=== PATIENT | female | born 1960 | race African-American/Black ===

== ENCOUNTER 2020-03-11 10:40 | Inpatient (IN) | payer MEDICARE ==
[~2020-03-11] VITALS: Ht 165.1 cm; Wt 65.6 kg
[2020-03-11] VITALS (11 sets, daily range): BP systolic 104–147; BP diastolic 54–91; BMI 24.9
[2020-03-11] MEDS ORDERED: BREO ELLIPTA 11 EACH INH ×2 (10:50→17:26)
[2020-03-11] MEDS ORDERED: LANOXIN125 MCG PO (10:51)
[2020-03-11] MEDS ORDERED: DILT-XR240 MG PO (10:51)
[2020-03-11] MEDS ORDERED: CYCLOBENZAPRINE10 MG PO (10:51)
[2020-03-11] MEDS ORDERED: LOMOTIL 2.5-0.1 EAC1 PO (10:51)
[2020-03-11] MEDS ORDERED: HYDROCODON-ACE1 EAC2 PO (10:52)
[2020-03-11] MEDS ORDERED: FERROUS SULFAT325 MG PO (10:52)
[2020-03-11] MEDS ORDERED: ELIQUIS2.5 MG PO (10:52)
[2020-03-11] MEDS ORDERED: MAG-OX 400 MG400 MG PO (10:53)
[2020-03-11] MEDS ORDERED: ZOFRAN8 MG PO (10:53)
[2020-03-11] MEDS ORDERED: LASIX40 MG PO (10:53)
[2020-03-11] MEDS ORDERED: IPRAT-ALBUT 0.5-3 ML UPD (10:53)
[2020-03-11] MEDS ORDERED: GLUCOPHAGE500 MG PO (10:53)
[2020-03-11] MEDS ORDERED: ALTACE1.25 MG PO (10:54)
[2020-03-11] MEDS ORDERED: VIAGRA25 MG PO (10:54)
[2020-03-11] MEDS ORDERED: PROTONIX40 MG PO (10:54)
[2020-03-11 11:09] LABS: BASOPHILS 0.1 % (0-2); EOSINOPHILS 0 % (0-7); HEMATOCRIT 37.8 % (36.0-48.0); LYMPHOCYTES 5.8 % (15-50); MCH 27.5 pg (26.0-34.0); MCHC 29.1 g/dL (31.0-37.0); MCV 94.5 fL (80.0-100.0); MEAN PLATELET VOLUME 10.1 fL (7.4-10.4); MONOCYTES 1.6 % (2-11); NEUTROPHILS 91.5 % (40-80); PLATELET COUNT 348 10x3/uL (130-400); RDW 15.3 % (11.5-14.5); WBC 10.9 10x3/uL (4.8-10.8)
[2020-03-11 11:14] LABS: ANION GAP 16.3 mmol/L (8-16); CALCIUM 9.3 mg/dL (8.5-10.1); CARBON DIOXIDE 28.3 mmol/L (21.0-32.0); CREATININE - SERUM 3.8 mg/dL (0.6-1.3); POTASSIUM - SERUM 5.6 mmol/L (3.5-5.1)
--- NOTE | 2020-03-11 11:16 | NUR ---
PT PLACED ON NRB AT 15L AT THIS TIME. O2 SAT IMPROVED TO 91%
[2020-03-11 11:18] LABS: INR 1.53 (0.85-1.17); PROTIME 18.2 SECONDS (11.6-15.0)
[2020-03-11 11:19] LABS: APTT 38.8 SECONDS (22.8-39.4)
[2020-03-11 11:20] LABS: D-DIMER-QUANTITATIVE < 0.27 ug/mLFEU (0.20-0.54)
[2020-03-11 11:23] LABS: ALBUMIN 3.8 g/dL (3.4-5.0); BILIRUBIN - TOTAL 0.44 mg/dL (0.2-1.3); PROTEIN - SERUM 8.8 g/dL (6.4-8.2); TROPONIN-I 0.026 ng/mL (0.000-0.060)
--- NOTE | 2020-03-11 13:25 | NUR ---
PT PROVIDED WITH BLANKET
--- NOTE | 2020-03-11 14:38 | NUR ---
REPORT CALLED TO ANAHY AT THIS TIME.
--- NOTE | 2020-03-11 15:07 | NUR ---
RECEIVED PT FROM ED VIA STRETCHER. PT ON ISOLATION FOR PUI. ON 100% NRB. RT FA PIV, SL. SOFI LUNGS DIMINISHED. DENIES ANY NEEDS AT THIS TIME. SR ON THE MONITOR.
--- NOTE | 2020-03-11 16:00 | NUR ---
SISTER HERE TO VISIT. ALLOWED TO SEE PATIENT THROUGH THE WINDOW. UPDATE GIVEN PER PT CONSENT. WILL CONT TO MONITOR.
--- NOTE | 2020-03-11 16:30 | NUR ---
CONSULTED DR HESS PER ORDERS. STATES HE WILL BE HERE IN A MINUTE. DR HESS SITTING NEXT TO DR MADDEN, NOTIFIED OF CONSULT WELL.
--- NOTE | 2020-03-11 16:50 | NUR ---
DR HESS IN UNIT TO SEE PATIENT. STATES "I'LL BE RIGHT BACK".
--- NOTE | 2020-03-11 17:30 | NUR ---
REC'D RERPORT, AND RESUMED CARE, PATIENT IN PUI ROOM ISOLATION, BIPAP IN USE AT 40%, 07/04, AA, NO NEEDS AT THIS TIME,
--- NOTE | 2020-03-11 18:15 | NUR ---
SISTER HERE FOR VISIT, WAS ABLE TO COMMUNICATE THROUGH WINDOW, UNDERSTANDS SHE WILL NOT BE ABLE TO GO IN ROOM UNTIL COVID COMES BACK NEGATIVE, INFORMATION GIVEN SON RE: HOURS AND VISITATIONS
[2020-03-11 20:30] LABS: CREATINE KINASE 107 UL (21-215)
[2020-03-11 20:34] LABS: ALBUMIN 3.8 g/dL (3.4-5.0); BILIRUBIN - TOTAL 0.3 mg/dL (0.2-1.3); CALCIUM 8.8 mg/dL (8.5-10.1); POTASSIUM - SERUM 5.2 mmol/L (3.5-5.1); PROTEIN - SERUM 7.9 g/dL (6.4-8.2)
[2020-03-11 20:38] LABS: ANION GAP 9.3 mmol/L (8-16); CARBON DIOXIDE 35.9 mmol/L (21.0-32.0); TROPONIN-I < 0.017 ng/mL (0.000-0.060)
--- NOTE | 2020-03-11 22:25 | NUR ---
spoke with dr lauren. lung scan is to be in am
[2020-03-11 23:45] LABS: BILIRUBIN NEGATIVE (NEGATIVE); GLUCOSE NEGATIVE (NEGATIVE); KETONE NEGATIVE (NEGATIVE); NITRITE NEGATIVE (NEGATIVE); UROBILINOGEN NORMAL (NORMAL)
[2020-03-11 23:55] LABS: UDS - AMPHET NEGATIVE QUAL (NEGATIVE); UDS - BARB NEGATIVE QUAL (NEGATIVE); UDS - BENZO NEGATIVE QUAL (NEGATIVE); UDS - COCAINE NEGATIVE QUAL (NEGATIVE); UDS - OPIATE POSITIVE QUAL (NEGATIVE); UDS - PCP NEGATIVE QUAL (NEGATIVE); UDS - THC NEGATIVE QUAL (NEGATIVE)
[2020-03-12] VITALS (22 sets, daily range): BP systolic 98–162; BP diastolic 61–99; Ht 165.1 cm; Wt 65.6 kg
--- NOTE | 2020-03-12 01:44 | NUR ---
patient vomited twice. zofran provided.
--- NOTE | 2020-03-12 01:48 | NUR ---
1999- lab called for negative covid results. patient on bipap during this time.
--- NOTE | 2020-03-12 03:19 | NUR ---
patient throwing up. continued to reducated as to why she is npo.
--- NOTE | 2020-03-12 05:41 | NUR ---
bicarb turned off per dr lauren. update given
[2020-03-12 06:16] LABS: BASOPHILS 0 % (0-2); EOSINOPHILS 0 % (0-7); HEMATOCRIT 42.3 % (36.0-48.0); HEMOGLOBIN 12.5 g/dL (12-16); IMMATURE GRANULOCYTES 0.2 % (0-5); MCH 27.6 pg (26.0-34.0); MCHC 29.6 g/dL (31.0-37.0); MCV 93.4 fL (80.0-100.0); MEAN PLATELET VOLUME 10.5 fL (7.4-10.4); MONOCYTES 15.8 % (2-11); PLATELET COUNT 353 10x3/uL (130-400); RBC 4.53 10x6/uL (4.00-5.40); RDW 15.7 % (11.5-14.5)
[2020-03-12 06:17] LABS: WBC 5.8 10x3/uL (4.8-10.8)
[2020-03-12 06:48] LABS: ALBUMIN 4.1 g/dL (3.4-5.0); ALKALINE PHOSPHATASE 59 U/L (30-120); ALT (SGPT) 194 U/L (10-68); BILIRUBIN - TOTAL 0.44 mg/dL (0.2-1.3); CALC OSMOLALITY 290 mosm/kg (275-300); CALCIUM 9.5 mg/dL (8.5-10.1); CHLORIDE - SERUM 93 mmol/L (98-107); CKMB 2.4 U/L (0.0-3.6); CREATINE KINASE 61 UL (21-215); CREATININE - SERUM 2.3 mg/dL (0.6-1.3); GLUCOSE 143 mg/dL (74-106); MAGNESIUM - SERUM 1.8 mg/dL (1.8-2.4); POTASSIUM - SERUM 4.5 mmol/L (3.5-5.1); PROTEIN - SERUM 9.1 g/dL (6.4-8.2); SODIUM 138 mmol/L (136-145); UREA NITROGEN 48 mg/dL (7-18); eGFR NON AFRICAN AMERICAN 23 mL/min (90-120)
[2020-03-12 06:51] LABS: TROPONIN-I 0.068 ng/mL (0.000-0.060)
[2020-03-12 06:52] LABS: CARBON DIOXIDE 41.2 mmol/L (21.0-32.0)
--- NOTE | 2020-03-12 06:54 | NUR ---
critical labs called to dr lauren.
--- NOTE | 2020-03-12 08:42 | NUR ---
UP IN BED AT THIS TIME RESTING. VSS. NO ACUTE DISTRESS NOTED. RESPIRATIONS STEADY AND UNLABORED. CALL LIGHT IN REACH. AWAKENS WHEN SPOKEN TO. WILL CONTINUE PLAN OF CARE.
--- NOTE | 2020-03-12 10:41 | NUR ---
PT NOTED TO HAVE EPISODE OF TACHYCARDIA UP TO 130 WHICH LASTS FOR AROUND 2 OR 3 SECONDS FOLLOWED BY HEART RATE COMING BACK DOWN TO 100 AND HOLDING. BLOOD PRESSURE 139/88. PT CALM AND RESTING IN BED. DENIES ANY NEEDS OR DISCOMFORTS. DR MERCADO CALLED, RECIEVED VOICEMAIL, VOICEMAIL LEFT FOR HIM TO CALL BACK. WAITING FOR CALLBACK.
--- NOTE | 2020-03-12 11:06 | NUR ---
SINCE DR MERCADO CALLED RECENTLY, PT HAS HAD 2 MORE EPISODES OF TACHYCARDIA UP TO 125-130 WHICH LASTS UP TO 3 SECONDS AND IS FOLLOWED BY PT COMING BACK DOWN TO [address] NO CALLBACK FROM DR MERCADO. CALLED [facility] TO [facility] PHYSICIAN. DR MERCADO PAGED.
--- NOTE | 2020-03-12 11:16 | NUR ---
DR MERCADO HERE TO SEE PT. ORDERED CARDIOLOGY CONSULT.
--- NOTE | 2020-03-12 11:17 | NUR ---
GISSEL SLAUGHTER FOR CARDIOLOGY PAGED.
--- NOTE | 2020-03-12 11:29 | NUR ---
SPOKE WITH KEITH WITH CARDIOLOGY, STATED SHE WOULD BE BY TO SEE PT SHORTLY.
--- NOTE | 2020-03-12 12:41 | NUR ---
PTS DAUGHTER AT BEDSIDE VISIING WITH PT AT THIS TIME. VSS. NO ACUTE DISTRESS NOTED. WILL CONTINUE PLAN OF CARE.
--- NOTE | 2020-03-12 13:49 | NUR ---
HEART RATE TRENDING UP TO 140 SINUS AND HOLDING. EKG OBTAINED AND SHOWS "UNDETERMINED RHYTHM." CARDIOLOGY PAGED.
--- NOTE | 2020-03-12 14:11 | NUR ---
NO CALLBACK RECIEVED FROM CARDIOLOGY FIRE LOSS PREVENTION ENGINEER. DR WANG PAGED AT THIS TIME. PTS HEART RATE 137 SINUS.
--- NOTE | 2020-03-12 14:14 | NUR ---
RECIEVED CALLBACK FROM TRAINING AND DEVELOPMENT HEAD RN WHO STATED SHE WILL NOTIFY DR WANG REGARDING PT UPDATE.
--- NOTE | 2020-03-12 17:40 | NUR ---
CHG BATH OFFERED TO PT, SHE REFUSED STATING SHE WANTED TO REST. ALSO ASSITED PT TO BEDSIDE TOILET, CONTINENT VOID NOTED. PT PROVIDED OWN JAKUB CARE. NO ACUTE DISTRESS NOTED. WILL CONTINIUE PLAN OF CARE.
--- NOTE | 2020-03-12 19:00 | NUR ---
ASSESSMENT COMPLETED. SEE FLOWSHEETS FOR ALL FINDINGS. PT SOMNOLENT, AROUSE WITH VOICES, FOLLOWS COMMANDS. DENIES ANY DISCOMFORT AT THIS TIME. AFIB ON CM WITH R AT 98BPM. PPP. CALL LIGHT IN REACH. CPOC.
--- NOTE | 2020-03-12 21:00 | NUR ---
SON AT BEDSIDE. UPDATED.
--- NOTE | 2020-03-12 21:45 | NUR ---
PT NAUSEATED. NO EMESIS NOTED. HOB UP. ZOFRAN 4MG IVP GIVEN PER ORDER. WASH COLD TO FOREHEAD. MOUTH CARE PROVIDED. PT STATES THAT FEELS BETTER. CPOC.
--- NOTE | 2020-03-12 23:00 | NUR ---
REASSESSMENT COMPLETED. SEE FLOWSHEETS FOR ALL FINDINGS. PT BACK ON BIPAP WITHOUT DISTRESS AT THIS TIME. VSS. CPOC.
[2020-03-13] VITALS (24 sets, daily range): BP systolic 104–139; BP diastolic 50–99
--- NOTE | 2020-03-13 01:00 | NUR ---
ASSISTED WITH BEDPAN. VOIDS WITHOUT DIFFIC. JAKUB CARE PROVIDED. REPOSITIONED SELF FOR COMFORT. CPOC.
--- NOTE | 2020-03-13 03:00 | NUR ---
REASSESSMENT COMPLETED. SEE FLOWSHEETS FOR ALL FINDINGS. NO ACUTE SINGS OF DISTRESS AT THIS TIME. VSS. CPOC.
[2020-03-13 03:36] LABS: BASOPHILS 0 % (0-2); EOSINOPHILS 0 % (0-7); HEMATOCRIT 38.2 % (36.0-48.0); HEMOGLOBIN 10.9 g/dL (12-16); IMMATURE GRANULOCYTES 0.3 % (0-5); MCH 27.5 pg (26.0-34.0); MCHC 28.5 g/dL (31.0-37.0); MEAN PLATELET VOLUME 10.7 fL (7.4-10.4); MONOCYTES 15.6 % (2-11); NEUTROPHILS 69.1 % (40-80); PLATELET COUNT 342 10x3/uL (130-400); RBC 3.97 10x6/uL (4.00-5.40); RDW 15.6 % (11.5-14.5)
[2020-03-13 03:39] LABS: MCV 96.2 fL (80.0-100.0); WBC 7.8 10x3/uL (4.8-10.8)
[2020-03-13 03:58] LABS: ALBUMIN 3.4 g/dL (3.4-5.0); ANION GAP 6.4 mmol/L (8-16); BILIRUBIN - TOTAL 0.41 mg/dL (0.2-1.3); CALCIUM 8.7 mg/dL (8.5-10.1); CARBON DIOXIDE 39.6 mmol/L (21.0-32.0); CREATININE - SERUM 1.9 mg/dL (0.6-1.3); MAGNESIUM - SERUM 1.8 mg/dL (1.8-2.4); PROTEIN - SERUM 7.4 g/dL (6.4-8.2)
--- NOTE | 2020-03-13 04:15 | NUR ---
I&O COMPLETED TO CHART.
[2020-03-13 06:09] LABS: HEPATITIS C ANTIBODY 0.2 S/CO RAT (0.0-0.9)
--- NOTE | 2020-03-13 07:00 | NUR ---
REPORT RECEIVED. ASSESSMENT COMPLETE PER FLOW SHEET. VSS. PT RESTING COMFORTABLY WILL CONTIUE TO MONITOR
--- NOTE | 2020-03-13 09:00 | NUR ---
PT ATE 50% BREAKFAST.
--- NOTE | 2020-03-13 10:44 | NUR ---
Nutrition follow-up: Pt not feeling well today; with nausea Labs reviewed Wt: 148# Diet: Renal consistent CHO Bipap at times; O2 @ 9 liters Will continue to provide food choices and honor food preferences. RDN following.
--- NOTE | 2020-03-13 11:00 | NUR ---
REASSESSMENT COMPLETE PER FLOW SHEET. VSS. PT RETING COMFORTABLY WILL CONTINUE TO MONITOR
--- NOTE | 2020-03-13 13:00 | NUR ---
PT REFUSED LUNCH
--- NOTE | 2020-03-13 15:00 | NUR ---
REASSESMENT COMPLETE PER FLOW SHEET. VSS. PT RESTING COMFORTABLY WILL CONTINUE TO MONITOR
--- NOTE | 2020-03-13 17:00 | NUR ---
PT EATING DINNER AT THIS TIME
--- NOTE | 2020-03-13 19:00 | NUR ---
REPORT RECEIVED INITIAL ASSESSMENT COMPLETE O2 PER NC 7LPM O2 SAT 96%. CM READING SR AT THIS TIME. DENIES NEEDS AT THIS TIME. CL IN REACH WILL MONITOR
--- NOTE | 2020-03-13 21:30 | NUR ---
ANSWERED CL PT NEEDING ASSIST WITH CM LEADS AND WIRES TO GET UP TO BSC PT STEADY GAIT AND INDEPENDENT JUST NEEDING HELP WITH MONITOR. CLEAR YELLOW URINE NOTED ASSISTED BACK TO BED AND MONITOR BACK ON
--- NOTE | 2020-03-13 21:44 | NUR ---
ANSWERED PTS CL REQUESTING PAIN PILL PT STATES LOWER BACK PAIN CHRONIC. MEDICATED PER PRN EMAR WILL CONTINUE TO MONITOR N
[2020-03-14] VITALS (24 sets, daily range): BP systolic 95–128; BP diastolic 58–79
--- NOTE | 2020-03-14 01:40 | NUR ---
ANSWERED PTS CALL LIGHT ASSISTED WITH MONITOR LEADS UP TO BSC
--- NOTE | 2020-03-14 02:35 | NUR ---
ANSWERED PTS CALL LIGHT REQUESTING PAIN MED FOR CHRONIC BACK PAIN SEE PRN EMAR
[2020-03-14 03:39] LABS: BASOPHILS 0 % (0-2); EOSINOPHILS 0.7 % (0-7); HEMATOCRIT 38.8 % (36.0-48.0); IMMATURE GRANULOCYTES 0.1 % (0-5); LYMPHOCYTES 19.2 % (15-50); MCH 27.1 pg (26.0-34.0); MCHC 28.4 g/dL (31.0-37.0); MCV 95.6 fL (80.0-100.0); MONOCYTES 8.2 % (2-11); NEUTROPHILS 71.8 % (40-80); RBC 4.06 10x6/uL (4.00-5.40); RDW 15.2 % (11.5-14.5)
[2020-03-14 03:40] LABS: PLATELET COUNT 270 10x3/uL (130-400)
[2020-03-14 04:01] LABS: ALBUMIN 3.4 g/dL (3.4-5.0); BILIRUBIN - TOTAL 0.57 mg/dL (0.2-1.3); CALCIUM 8.6 mg/dL (8.5-10.1); CARBON DIOXIDE 39.6 mmol/L (21.0-32.0); CREATININE - SERUM 1.6 mg/dL (0.6-1.3); MAGNESIUM - SERUM 1.5 mg/dL (1.8-2.4); POTASSIUM - SERUM 3.6 mmol/L (3.5-5.1); PROTEIN - SERUM 7.1 g/dL (6.4-8.2)
--- NOTE | 2020-03-14 05:40 | NUR ---
MAG LEVEL LOW PER ELECTROLYTE PROTOCOL MAG OX 400 MG GIVEN FIRST DOSE NOW SECOND DOSE TO BE GIVEN IN 4 HOURS WILL REPORT TO ONCOMING SHIFT
--- NOTE | 2020-03-14 07:30 | NUR ---
UP TO BEDSIDE COMMODE. SMALL SOFT BROWN STOOL AND VOIDED. TOLERATING TRANSFERING SELF WELL. DENIES SHORTNESS OF BREATH WITH A PULSE OX OF 88% ON 7 LITERS HIGH FLOW OXYGEB
--- NOTE | 2020-03-14 08:00 | NUR ---
BREAKFAST SERVED. FEEDS SELF. FAIR APPETITE. IV RIGHT FOREARM INFUSING WITH DOBUTAMINE AT 5 MCG/KG/MIN. MONITOR SR. NO DISTRESS
--- NOTE | 2020-03-14 10:00 | NUR ---
MOVED TO ROOM 2310. OUT OF THE ISOLATION ROOM. PER BED. PATIENT TOLERATED WELL
--- NOTE | 2020-03-14 10:30 | NUR ---
COMPLETE HIBCLENS BATH GIVEN WITH LINEN CHANGE PATIENT TOLERATED WELL. UP TO BSC WITH MINIMAL ASSISTANCES WITH LINES.
--- NOTE | 2020-03-14 11:30 | NUR ---
sat on side of bed to eat lunch. up on bedside commode. voiding small amounts, passing gas. tolerates fair.
--- NOTE | 2020-03-14 13:00 | NUR ---
iv leaking when lasix given. restarted iv in right forearm with 22 gauge, lasix given, dobutamine restarted at 5 mcg/kg/min. new line and bag placed. patient tolerated well. monitor sr.
--- NOTE | 2020-03-14 14:00 | NUR ---
up in chair at bedside. patient states her back is better up in chair
--- NOTE | 2020-03-14 15:00 | NUR ---
son here update given.
--- NOTE | 2020-03-14 16:30 | NUR ---
dinner tray served. ate poorly.
--- NOTE | 2020-03-14 17:00 | NUR ---
returned to bed. gait fair. holding on to furniture to ambulate in room
--- NOTE | 2020-03-14 19:00 | NUR ---
REPORT RECEIVED INITIAL ASSESSMENT COMPLETE. ALERT AND ORIENTED STATES PAIN MED GIVEN EARLIER EFFECTIVE. RESP EVEN NONLABORED PT DENIES SOB O2 AT 8 LPM HFNC. CHEST SOUNDS CLEAR. CM READING SR WITHOUT ECTOPY ALARMS ON AND AUDIBLE. DOBUTAMINE GTT CONTINUES AT 5 MCG/KG/MIN VIA 22 GUAGE TO RIGHT FOREARM BED IN LOW POSITION CL IN REACH PT DENIES NEEDS AT THIS TIME. CPOC
--- NOTE | 2020-03-14 20:30 | NUR ---
ANSWERED PTS CALL LIGHT NEEDING TO GET UP TO BSC ASSISTED WITH IV LINE AND CM LINES PT HAD MODERATE FORMED BROWN STOOL
--- NOTE | 2020-03-14 21:10 | NUR ---
ACCUCHECK 107 NO COVERAGE REQUIRED
--- NOTE | 2020-03-14 23:30 | NUR ---
ANSWERED PTS CALL LIGHT REQUESTING PAIN MED MEDICATED WITH VICOPROFEN PER EMAR FOR CHRONIC BACK PAIN WILL CONTINUE TO MONITOR
[2020-03-15] VITALS (24 sets, daily range): BP systolic 92–133; BP diastolic 61–88
--- NOTE | 2020-03-15 03:20 | NUR ---
O2 SAT ALARMING PT O2 SAT DROPS EVERY TIME PT UP TO BSC THIS TIME DOWN TO 70'S. ONCE BACK IN BED AND SITUATED O2 SAT RETURNS TO 90'S
[2020-03-15 03:41] LABS: BASOPHILS 0.1 % (0-2); EOSINOPHILS 2.8 % (0-7); HEMATOCRIT 40.5 % (36.0-48.0); HEMOGLOBIN 11.7 g/dL (12-16); IMMATURE GRANULOCYTES 0.3 % (0-5); LYMPHOCYTES 14.2 % (15-50); MCH 27.1 pg (26.0-34.0); MCHC 28.9 g/dL (31.0-37.0); MEAN PLATELET VOLUME 10.4 fL (7.4-10.4); MONOCYTES 15.8 % (2-11); NEUTROPHILS 66.8 % (40-80); PLATELET COUNT 304 10x3/uL (130-400); RBC 4.31 10x6/uL (4.00-5.40); RDW 14.6 % (11.5-14.5); WBC 7.8 10x3/uL (4.8-10.8)
[2020-03-15 03:50] LABS: ALBUMIN 3.5 g/dL (3.4-5.0); BILIRUBIN - TOTAL 0.61 mg/dL (0.2-1.3); CALCIUM 8.3 mg/dL (8.5-10.1); CARBON DIOXIDE 39.7 mmol/L (21.0-32.0); CREATININE - SERUM 1.5 mg/dL (0.6-1.3); MAGNESIUM - SERUM 1.5 mg/dL (1.8-2.4); POTASSIUM - SERUM 3.7 mmol/L (3.5-5.1); PROTEIN - SERUM 7.4 g/dL (6.4-8.2)
--- NOTE | 2020-03-15 04:15 | NUR ---
PTS MAG LOW ON AM LABS. MAGOX 400 MG GIVEN ORAL PER ELECTROLYTE PROTOCOL
--- NOTE | 2020-03-15 06:06 | NUR ---
ANSWERED CALL LIGHT PT REQUESTING PAIN PILL MEDICATED SEE EMAR
--- NOTE | 2020-03-15 07:00 | NUR ---
AWAKE AND ALERT SKIN WARM AND DRY. USUAL BACK PAIN FOR MORNING FOR HER. IV RIGHT FOREARM WITHOUT REDNESS OR SWELLING INFUSING WITH DOBUTAMINE AT 5 MCG/KG/MIN. PATIENT ABLE TO GET UP AND DOWN TO BSC INDEPENTLY. MONITOR SR. OXYGEN AT 5 LITERS PER HIGH FLOW
--- NOTE | 2020-03-15 08:00 | NUR ---
BREAKFAST SERVED ATE WELL. ASSIST WITH MENU
--- NOTE | 2020-03-15 09:00 | NUR ---
FAMILY HERE UPDATE GIVEN. PO MEDS TAKEN WITHOUT PROBLEM
--- NOTE | 2020-03-15 12:00 | NUR ---
LUNCH TRAY SERVED ATE WELL. NO DISTRESS. [place] [facility].
--- NOTE | 2020-03-15 13:00 | NUR ---
SON HERE UPDATE GIVEN. PATIENT SITTING ON SIDE OF BED.
--- NOTE | 2020-03-15 15:00 | NUR ---
UP AND DOWN [place] [facility] [place]ANCES. NO DISTRESS. MONITOR SR. DOBUTAMINE CONTINUES AT 5 MCG/KG/MIN.
--- NOTE | 2020-03-15 17:14 | NUR ---
DINNER TRAY SERVED. WATCHING TV. NO DISTRESS
--- NOTE | 2020-03-15 17:59 | NUR ---
sat up on bsc. complete hibclens bath taken with ora care. patient does have to take breaks and catch her breath. pulse ox does drop down into low 80's. tolerated fair. warm blanket provided. in bed. head of bed elvated
--- NOTE | 2020-03-15 19:00 | NUR ---
REPORT RECEIVED INITIAL ASSESSMENT COMPLETE. PT AWAKE ALERT AND ORIENTED. O2 PER HFNC 5LPM WITH OS SAT 95%. CHEST CLEAR. CM READING SR WITHOUT ECTOPY ALARMS ON AND AUDIBLE. DOBUTAMINE GTT CONTINUES AT 5MCG/KG/MIN DENIES PAIN OR SOB. CL IN REACH WILL CONTINUE TO MONITOR
--- NOTE | 2020-03-15 23:30 | NUR ---
ANSWERED PTS CALL LIGHT RAIN HAS INCREASED HER CHRONIC BACK PAIN GIVEN PAIN PILL VICOPROPHEN PER EMAR
[2020-03-16] VITALS (24 sets, daily range): BP systolic 89–129; BP diastolic 56–102
--- NOTE | 2020-03-16 03:00 | NUR ---
REASSESSMENT COMPLETE NO CHANGES. PT O2 SAT DROPS WHEN UP TO BSC BACK UP TO 90'S WHEN SETTLED BACK IN BED. CPOC
--- NOTE | 2020-03-16 03:45 | NUR ---
LAB HERE TO DRAW AM LAB REQUESTED FOR LATER DRAW SINCE PT JUST GOT TO SLEEP
[2020-03-16 04:24] LABS: HEMATOCRIT 41.5 % (36.0-48.0); HEMOGLOBIN 11.9 g/dL (12-16); LYMPHOCYTES 9.3 % (15-50); MCH 26.8 pg (26.0-34.0); MCHC 28.7 g/dL (31.0-37.0); MCV 93.5 fL (80.0-100.0); MEAN PLATELET VOLUME 10.3 fL (7.4-10.4); NEUTROPHILS 79.9 % (40-80); PLATELET COUNT 321 10x3/uL (130-400); RBC 4.44 10x6/uL (4.00-5.40); RDW 14.8 % (11.5-14.5); WBC 8.7 10x3/uL (4.8-10.8)
[2020-03-16 04:39] LABS: ALBUMIN 3.4 g/dL (3.4-5.0); ANION GAP 3.2 mmol/L (8-16); BILIRUBIN - TOTAL 0.39 mg/dL (0.2-1.3); CREATININE - SERUM 1.5 mg/dL (0.6-1.3); MAGNESIUM - SERUM 1.6 mg/dL (1.8-2.4); POTASSIUM - SERUM 3.2 mmol/L (3.5-5.1); PROTEIN - SERUM 7.2 g/dL (6.4-8.2)
--- NOTE | 2020-03-16 05:10 | NUR ---
PT REQUESTING PAIN PILL HASNT RESTED WELL. POTASSIUM AND MAG REPLACED PER ELECTROLYTE PROTOCOL
--- NOTE | 2020-03-16 10:07 | NUR ---
Nutrition follow-up: Diet: Renal ADA consistent CHO PO intake 50-100% of meals; appetite very good this morning Labs reviewed; K has been running low, BUN, Cr trending down Wt: 157# PO intake good at this time RDN recommends changing diet order to ADA consistent CHO due to pt with low K. RDN following.
--- NOTE | 2020-03-16 11:15 | NUR ---
REASSESSMENT COMPLETE PER FLOW SHEET. VSS. PT RESTING COMFORTABLY WILL CONTINUE TO MONITOR
--- NOTE | 2020-03-16 18:41 | MORECARE ---
CASE MANAGEMENT DISCHARGE SUMMARY PATIENT: BABATUNDE CAMPOVERDE UNIT: [id number] ADM DATE: 03/11/20 AGE: 59 : 56 SEX: F ROOM/BED: D.2310 AUTHOR: PIERRE MISTRY PHYSICIAN: REFERRING PHYSICIAN: TERESA MERCADO MD DATE OF SERVICE: 03/16/20 Discharge Plan Patient Name: BABATUNDE CAMPOVERDE Facility: [facility]:[place] : 1960 Planned Disposition: Home Anticipated Discharge Date: Discharge Date: Expected LOS: Initial Reviewer: [email or web address] Initial Review Date: 03/11/2020 Generated: 03/16/20 7:40 pm DCPIA - Discharge Planning Initial Assessment Updated by [email or web address]: Antionette Mclaughlin on 03/16/20 6:40 pm * Is the patient Alert and Oriented? Yes * How many steps to enter\exit or inside your home? * PCP [facility] * Pharmacy [facility] * Preadmission Environment Home with Family * ADLs Independent * Equipment Nebulizer * Other Equipment HOME / PORTABLE 02 * List name and contact numbers for known caregivers / representatives who currently or will assist patient after discharge: OFELIA CAMPOVERDE - [phone], * Verbal permission to speak to the caregivers and representatives has been obtained from the patient. Yes * Additional services required to return to the preadmission environment? No * Can the patient safely return to the preadmission environment? Yes * Has this patient been hospitalized within the prior 30 days at any hospital? No Patient Name: BABATUNDE CAMPOVERDE Page [id number] at 1841 All edits/amendments must be made on the electronic document DICTATION DATE: 03/16/201839 FRANKFURTER INSPECTOR: HEDY 03/16/201839 RPT#: [id number] DC DATE: STATUS: ADM IN [facility] [address] [place] [address] END OF REPORT
--- NOTE | 2020-03-16 18:48 | MORECARE ---
CASE MANAGEMENT DISCHARGE SUMMARY PATIENT: BABATUNDE CAMPOVERDE UNIT: [id number] ADM DATE: 03/11/20 AGE: 59 : 56 SEX: F ROOM/BED: D.2310 AUTHOR: FEDE,DOC PHYSICIAN: REFERRING PHYSICIAN: TERESA MERCADO MD DATE OF SERVICE: 03/16/20 Discharge Plan Patient Name: BABATUNDE CAMPOVERDE Facility: [facility]:[place] : 1960 Planned Disposition: Home Anticipated Discharge Date: Discharge Date: Expected LOS: Initial Reviewer: [email or web address] Initial Review Date: 03/11/2020 Generated: 03/16/20 7:47 pm Comments DCP- Discharge Planning Updated by [email or web address]: Antionette Mclaughlin on 03/16/20 5:[address] Patient Name: BABATUNDE CAMPOVERDE Admission Status: ER Accout number: [id number] Admission Date: 03-11-2020 : 1960 Admission Diagnosis:ACUTE KIDNEY FAILURE, UNSPECIFIED Attending: SUDHEER Current LOS: 5 Anticipated DC Date: Planned Disposition: Home Primary Insurance: [facility] [employer] Discharge Planning Comments: CM met with patient to complete initial dc planning assessment. CM educated patient on the CM role and verbal consent given by patient to complete assessment. Patient lives at home with family. Patient is independent. At discharge patient plans to return home and feels this is a safe discharge. CM discussed availability of home health, rehab services, and medical equipment. Patient states that she has a nurse that visits once a month. Patient states that she has home / portable 02 and a nebulizer. Patient would like a 4 prong cane for being unsteady. [employer]HO[employer] signed no preference in DME company. Patient will have family to transport home. Patient denied known discharge needs at this time. CM will continue to follow and will assist as needed with dc plans/needs. Bereavement Program Coordinator: Antionette Mclaughlin DCPIA - Discharge Planning Initial Assessment Updated by [id number]: Antionette Mclaughlin on 03/16/20 6:40 pm * Is the patient Alert and Oriented? Yes * How many steps to enter\exit or inside your home? * PCP [facility] * Pharmacy [facility] * Preadmission Environment Home with Family * ADLs Independent * Equipment Nebulizer * Other Equipment HOME / PORTABLE 02 * List name and contact numbers for known caregivers / representatives who currently or will assist patient after discharge: OFELIA CAMPOVERDE - [phone], * Verbal permission to speak to the caregivers and representatives has been obtained from the patient. Yes * Additional services required to return to the preadmission environment? No * Can the patient safely return to the preadmission environment? Yes * Has this patient been hospitalized within the prior 30 days at any hospital? No Coverage Notice Reviewer: [email or web address] Lauren Mclaughlin Notice Issued Date-Time: 03/16/2020 18:45 Notice Type: Patient Choice Letter Notice Delivered To: Patient Relationship to Patient: Self Global Expansion Sales Director Name: Delivery Method: HAND - Hand Delivered Slime Days: Prior Verbal Notification: Recipient Understood Notice: Yes Recipient Signature: Yes Med Rec Note Co-signed by Attending: Coverage Notice Comment: no preference in DME Last DP export: 03/16/20 5:41 p Patient Name: BABATUNDE CAMPOVERDE Page [phone] at 1848 All edits/amendments must be made on the electronic document DICTATION DATE: 03/16/201847 BUTADIENE CONVERTOR OPERATOR: HEDY 03/16/201847 RPT#: [id number] DC DATE: STATUS: ADM IN [facility] [address] [place] [address] END OF REPORT
--- NOTE | 2020-03-16 19:00 | NUR ---
REPORT RECEIVED. PT RESTING IN BED. ASSESSMENT COMPLETED, SEE FLOWSHEET. PIV IN RIGHT FOREARM INFUSING, SEE IV FLOWSHEET. WILL CONTINUE TO MONITOR.
--- NOTE | 2020-03-16 21:00 | NUR ---
PT RESTING IN BED, NO ACUTE DISTRESS NOTED.
--- NOTE | 2020-03-16 23:00 | NUR ---
REASSESSMENT COMPLETED, SEE FLOWSHEET. NO NEEDS VOICED AT THIS TIME.
[2020-03-17] VITALS (24 sets, daily range): BP systolic 86–125; BP diastolic 43–89
--- NOTE | 2020-03-17 01:00 | NUR ---
PT RESTING QUIETLY IN BED. NO ACUTE DISTRESS NOTED.
--- NOTE | 2020-03-17 03:00 | NUR ---
REASSESSMENT COMPLETED, SEE FLOWSHEET. WILL CONTINUE TO MONITOR.
[2020-03-17 06:44] LABS: BASOPHILS 0.1 % (0-2); EOSINOPHILS 3.7 % (0-7); HEMATOCRIT 42.2 % (36.0-48.0); HEMOGLOBIN 12.1 g/dL (12-16); IMMATURE GRANULOCYTES 0.1 % (0-5); LYMPHOCYTES 16.3 % (15-50); MCH 26.4 pg (26.0-34.0); MCHC 28.7 g/dL (31.0-37.0); MCV 91.9 fL (80.0-100.0); MEAN PLATELET VOLUME 10.5 fL (7.4-10.4); MONOCYTES 12.7 % (2-11); NEUTROPHILS 67.1 % (40-80); PLATELET COUNT 334 10x3/uL (130-400); RBC 4.59 10x6/uL (4.00-5.40); RDW 14.5 % (11.5-14.5); WBC 7.3 10x3/uL (4.8-10.8)
[2020-03-17 07:06] LABS: ALBUMIN 3.3 g/dL (3.4-5.0); BILIRUBIN - TOTAL 0.26 mg/dL (0.2-1.3); CALCIUM 8.8 mg/dL (8.5-10.1); CARBON DIOXIDE 36.5 mmol/L (21.0-32.0); CREATININE - SERUM 1.2 mg/dL (0.6-1.3); MAGNESIUM - SERUM 1.9 mg/dL (1.8-2.4); PHOSPHOROUS 2.9 mg/dL (2.5-4.9); POTASSIUM - SERUM 3.5 mmol/L (3.5-5.1); PROTEIN - SERUM 7.4 g/dL (6.4-8.2)
--- NOTE | 2020-03-17 07:30 | NUR ---
REPORT RECEIVED. ASSESSMENT COMPLETE PER FLOW SHEET. VSS. PT RESTING COMFORTABLY WILL CONTINUE TO MONITOR
--- NOTE | 2020-03-17 09:15 | NUR ---
PT ATE 100% BREAKFAST
--- NOTE | 2020-03-17 11:20 | NUR ---
REASSESSMENT COMPLETE PER FLOW SHEET. VSS. NO NEW CHANGES WILL CONTINUE TO MONITOR
--- NOTE | 2020-03-17 13:15 | NUR ---
PT RESTING COMFORTABLY WILL CONTINUE TO MONITOR
--- NOTE | 2020-03-17 19:00 | NUR ---
REPORT RECEIVED. PT AAOX4, RESTING IN BED. NO ACUTE DISTRESS NOTED. PIV IN RIGHT FOREARM TO SALINE LOCK. 5L VIA NC. WILL CONTINUE TO MONITOR.
--- NOTE | 2020-03-17 21:00 | NUR ---
PT RESTING IN BED. PT DESATS TO LOW 90'S WITH MODERATE EXERTION. O2 COMES UP WITHIN MINUTES OF RESTING. WILL CONTINUE TO MONITOR.
--- NOTE | 2020-03-17 23:00 | NUR ---
REASSESSMENT COMPLETED, SEE FLOWSHEET. PT ON BIPAP AT THIS TIME. WILL CONTINUE TO MONITOR.
[2020-03-18] VITALS (21 sets, daily range): BP systolic 83–124; BP diastolic 53–86
--- NOTE | 2020-03-18 01:00 | NUR ---
PT RESTING IN BED, NO ACUTE DISTRESS NOTED.
--- NOTE | 2020-03-18 03:00 | NUR ---
REASSESSMENT COMPLETED, SEE FLOWSHEET.
[2020-03-18 04:52] LABS: BASOPHILS 0.1 % (0-2); EOSINOPHILS 2.9 % (0-7); HEMATOCRIT 41.8 % (36.0-48.0); HEMOGLOBIN 12.2 g/dL (12-16); IMMATURE GRANULOCYTES 0.1 % (0-5); LYMPHOCYTES 18.1 % (15-50); MCH 26.7 pg (26.0-34.0); MCHC 29.2 g/dL (31.0-37.0); MCV 91.5 fL (80.0-100.0); MEAN PLATELET VOLUME 10.7 fL (7.4-10.4); MONOCYTES 13.9 % (2-11); NEUTROPHILS 64.9 % (40-80); PLATELET COUNT 339 10x3/uL (130-400); RBC 4.57 10x6/uL (4.00-5.40); RDW 14.4 % (11.5-14.5); WBC 7.9 10x3/uL (4.8-10.8)
--- NOTE | 2020-03-18 05:00 | NUR ---
PT SITTING UP ON SIDE OF BED, NO ACUTE DISTRESS NOTED.
[2020-03-18 05:27] LABS: ALBUMIN 3.5 g/dL (3.4-5.0); ANION GAP 3.5 mmol/L (8-16); BILIRUBIN - TOTAL 0.28 mg/dL (0.2-1.3); CALCIUM 8.8 mg/dL (8.5-10.1); CARBON DIOXIDE 38.9 mmol/L (21.0-32.0); CREATININE - SERUM 1.5 mg/dL (0.6-1.3); MAGNESIUM - SERUM 1.8 mg/dL (1.8-2.4); PHOSPHOROUS 3.4 mg/dL (2.5-4.9); POTASSIUM - SERUM 3.4 mmol/L (3.5-5.1); PROTEIN - SERUM 7.6 g/dL (6.4-8.2)
--- NOTE | 2020-03-18 07:00 | NUR ---
RESTING IN BED. NO DISTRESS. OXYGEN AT 5 LITERS PER NC. STATES SHE RESTED OK LAST NIGHT. SALINE LOCK IV RIGHT FOREARM NO SWELLING OR REDNESS. PATIENT UP TO BSC INDEPENTENTLY. STATES PAIN IS NOT BAD. MONITOR SR. SITS UP ON SIDE OF BED
--- NOTE | 2020-03-18 08:00 | NUR ---
BREAKFAST SERVED ATE WELL. PATIENT FILLED OUT MENU. STATES SHE IS READY TO GO HOME. NO DISTRESS
[2020-03-18] MEDS ORDERED: BREO ELLIPTA 11 EACH INH (08:54)
--- NOTE | 2020-03-18 09:24 | NUR ---
AMBULATED IN WONG PER PHYSICAL THERAPY, PULSE OX DID DROP TO 78%. PATIENT ASYMPTOMIC. DENIES ANY CHANGE IN SHORTNESS OF BREATH, DIZZYNESS,ETC. PULSE RETURNED TO 92%. STATES SHE HAS TO REST WHEN AT HOME WHEN WALKS AROUND.
--- NOTE | 2020-03-18 11:00 | NUR ---
LUNCH TRAY SERVED ATE FAIR. TALKINGON PHONE TO FAMILY.
--- NOTE | 2020-03-18 13:27 | NUR ---
Nutrition follow-up: Diet: Renal ADA PO intake continues to be good; out to floor possibly today Labs reviewed Wt: 156# RDN following.
--- NOTE | 2020-03-18 14:16 | NUR ---
NAPPING NO DISTRESS.
--- NOTE | 2020-03-18 15:46 | NUR ---
APPEARS ASLEEP. AROUSES TO VOICE. ALERT AND ORIENTED. REPOSITIONED FOR COMFORT. NO FEVER NOTED. DENIES FURTHER NEEDS AT THIS TIME. WILL CONTINUE TO MONITOR.
--- NOTE | 2020-03-18 17:10 | NUR ---
DAUGHTER AT BEDSIDE. PT SITTING ON SIDE OF BED. BATHING SELF WITH MINIMAL ASSISTANCE FROM DAUGHTER. CLEAN LINENS PROVIDED. DENIES FURTHER NEEDS AT THIS TIME.
--- NOTE | 2020-03-18 19:14 | NUR ---
report received. patient sitting on side of bed doing breathing treatment. daughter in room. question regarding transfer answered. will continue to monitor
[2020-03-19] VITALS (11 sets, daily range): BP systolic 86–115; BP diastolic 50–70
--- NOTE | 2020-03-19 04:52 | NUR ---
0000-patient on bipap
[2020-03-19 05:52] LABS: BASOPHILS 0.2 % (0-2); EOSINOPHILS 2.5 % (0-7); HEMATOCRIT 40.9 % (36.0-48.0); HEMOGLOBIN 11.9 g/dL (12-16); IMMATURE GRANULOCYTES 0.4 % (0-5); LYMPHOCYTES 17.6 % (15-50); MCH 26.7 pg (26.0-34.0); MCHC 29.1 g/dL (31.0-37.0); MCV 91.7 fL (80.0-100.0); MEAN PLATELET VOLUME 11.3 fL (7.4-10.4); MONOCYTES 14.5 % (2-11); NEUTROPHILS 64.8 % (40-80); PLATELET COUNT 342 10x3/uL (130-400); RBC 4.46 10x6/uL (4.00-5.40); RDW 14.3 % (11.5-14.5); WBC 8.4 10x3/uL (4.8-10.8)
[2020-03-19 06:06] LABS: ALBUMIN 3.3 g/dL (3.4-5.0); BILIRUBIN - TOTAL 0.28 mg/dL (0.2-1.3); CALCIUM 8.5 mg/dL (8.5-10.1); CARBON DIOXIDE 36.2 mmol/L (21.0-32.0); CREATININE - SERUM 1.7 mg/dL (0.6-1.3); POTASSIUM - SERUM 4.2 mmol/L (3.5-5.1); PROTEIN - SERUM 7.3 g/dL (6.4-8.2)
--- NOTE | 2020-03-19 07:59 | NUR ---
Nutrition follow-up: Pt receiving a renal consistent CHO diet with po intake ~25% of meals BIPAP in place Labs reviewed WT: 157# +BM PO intake poor at this time due to breathing issues and restrictive diet Will encourage increased po intake RDN following.
--- NOTE | 2020-03-19 09:45 | NUR ---
RESTING COMFORTABLY IN CHAIR. DENIES ANY NEEDS AT THIS TIME.
--- NOTE | 2020-03-19 11:15 | NUR ---
PT RESTING COMFORTABLY IN CHAIR. NO FEVER NOTED. VSS. CONTINUES ON 5L O2 VIA HIGH FLOW NC. NO FURTHER NEEDS AT THIS TIME. WILL CONTINUE TO MONITOR.
--- NOTE | 2020-03-19 11:28 | NUR ---
RATES PAIN 8/10 TO LOWER BACK. PAIN MEDICINE GIVEN PER ORDER. RESTING IN BED. DENIES FURTHER NEEDS.
--- NOTE | 2020-03-19 13:30 | NUR ---
ATE ABOUT 80% OF MEAL. SITTING UP ON SIDE OF BED. WILL CONTINUE TO MONITOR.
--- NOTE | 2020-03-19 18:56 | NUR ---
per report.. hold aldactone and metopropolol. see assessmnet.
--- NOTE | 2020-03-20 00:20 | NUR ---
patient sleeping. no acute distress.
--- NOTE | 2020-03-20 00:20 | NUR ---
2200-patient sleeping. bipap put on. will continue to monitor
[2020-03-20 03:00] VITALS: BP 109/79
[2020-03-20 03:54] LABS: BASOPHILS 0.1 % (0-2); EOSINOPHILS 2.2 % (0-7); HEMATOCRIT 38.7 % (36.0-48.0); HEMOGLOBIN 11.1 g/dL (12-16); LYMPHOCYTES 12.2 % (15-50); MCH 26.6 pg (26.0-34.0); MCHC 28.7 g/dL (31.0-37.0); MCV 92.8 fL (80.0-100.0); MEAN PLATELET VOLUME 9.5 fL (7.4-10.4); MONOCYTES 13.9 % (2-11); NEUTROPHILS 71.6 % (40-80); PLATELET COUNT 286 10x3/uL (130-400); RBC 4.17 10x6/uL (4.00-5.40); RDW 14.4 % (11.5-14.5); WBC 8.5 10x3/uL (4.8-10.8)
[2020-03-20 04:22] LABS: ALBUMIN 3.1 g/dL (3.4-5.0); ANION GAP 5.8 mmol/L (8-16); BILIRUBIN - TOTAL 0.16 mg/dL (0.2-1.3); CALCIUM 8.8 mg/dL (8.5-10.1); CARBON DIOXIDE 35.4 mmol/L (21.0-32.0); CREATININE - SERUM 1.5 mg/dL (0.6-1.3); POTASSIUM - SERUM 4.2 mmol/L (3.5-5.1); PROTEIN - SERUM 6.9 g/dL (6.4-8.2)
[2020-03-20 07:00] VITALS: BP 130/80
--- NOTE | 2020-03-20 07:00 | NUR ---
ASSESSMENT PER FLOWSHEET. VOICES NO CO AT TIME.
--- NOTE | 2020-03-20 09:00 | NUR ---
UP AMBULATING IN ICU. O2 SAT 83 PERCENT ON 8 LITERS HIGH FLOW. BACK TO BED. O2 SAT NOW 88 PERCENT. ON 6 LITERS HIGH FLOW.
--- NOTE | 2020-03-20 09:55 | NUR ---
DR ALEXIS HERE INSTRUCT PT O2 SAT WAS 83 PERCENT. BUT NOT SYMPTOMATIC. WILL CONTINUE TO MONITOR. O2 AT 5 L NOW HF. O2 SAT 90 PERCENT.
--- NOTE | 2020-03-20 10:40 | NUR ---
PT DOING IS.
--- NOTE | 2020-03-20 10:49 | NUR ---
REPORT CALLED TO CHRISTINA.
[2020-03-20 11:00] VITALS: BP 133/76
--- NOTE | 2020-03-20 11:07 | NUR ---
TRANSFER TO ROOM 2219 VIA .
--- NOTE | 2020-03-20 11:15 | NUR ---
PT ARRIVES TO ROOM VIA WHEELCHAIR. PT IS AAO X 4. O2 VIA HFNC @ 4L. PT DENIES PRESENCE OF N/V/PAIN/SOB/DYSPNEA. PT ASSISTED TO BEDSIDE CHAIR PER PT PREFERENCE. BED IS IN THE LOWEST POSITION. CALL LIGHT AND BEDSIDE TABLE ARE WITHIN REACH. SIDE RAILS X 2. PT DENIES FURTHER NEEDS. WILL CONT TO MONITOR.
[2020-03-20 13:45] VITALS: BP 157/64
[2020-03-20 16:00] VITALS: BP 101/58
[2020-03-20 20:00] VITALS: BP 114/66
[2020-03-21 04:00] VITALS: BP 107/72
[2020-03-21 05:02] LABS: BASOPHILS 0.2 % (0-2); EOSINOPHILS 2.4 % (0-7); HEMATOCRIT 36.8 % (36.0-48.0); HEMOGLOBIN 10.5 g/dL (12-16); IMMATURE GRANULOCYTES 0.2 % (0-5); LYMPHOCYTES 21.1 % (15-50); MCH 26.3 pg (26.0-34.0); MCHC 28.5 g/dL (31.0-37.0); MCV 92.2 fL (80.0-100.0); MONOCYTES 14.5 % (2-11); NEUTROPHILS 61.6 % (40-80); PLATELET COUNT 304 10x3/uL (130-400); RBC 3.99 10x6/uL (4.00-5.40); RDW 14.7 % (11.5-14.5)
[2020-03-21 05:04] LABS: WBC 5.9 10x3/uL (4.8-10.8)
[2020-03-21 05:30] LABS: ALBUMIN 3.1 g/dL (3.4-5.0); ANION GAP 3.8 mmol/L (8-16); BILIRUBIN - TOTAL 0.27 mg/dL (0.2-1.3); CALCIUM 8.7 mg/dL (8.5-10.1); CARBON DIOXIDE 38.3 mmol/L (21.0-32.0); CREATININE - SERUM 1.5 mg/dL (0.6-1.3); POTASSIUM - SERUM 4.1 mmol/L (3.5-5.1); PROTEIN - SERUM 6.9 g/dL (6.4-8.2)
--- NOTE | 2020-03-21 08:04 | NUR ---
SITING ON SIDE OF BED, NO DISTRESS NOTED, O2 PER NC, CONT TO MOITOR RESP STATUS
[2020-03-21 10:42] VITALS: BP 120/68
[2020-03-21 13:15] VITALS: BP 107/63
[2020-03-21 17:46] VITALS: BP 116/75
[2020-03-21 20:00] VITALS: BP 113/67
[2020-03-22] VITALS: BP 103/61
[2020-03-22 04:00] VITALS: BP 113/63
[2020-03-22 05:55] LABS: BASOPHILS 0.2 % (0-2); EOSINOPHILS 2.3 % (0-7); HEMATOCRIT 36.1 % (36.0-48.0); HEMOGLOBIN 10.3 g/dL (12-16); IMMATURE GRANULOCYTES 0.2 % (0-5); LYMPHOCYTES 17.2 % (15-50); MCH 26.5 pg (26.0-34.0); MCHC 28.5 g/dL (31.0-37.0); MCV 92.8 fL (80.0-100.0); MEAN PLATELET VOLUME 10.4 fL (7.4-10.4); MONOCYTES 19.4 % (2-11); NEUTROPHILS 60.7 % (40-80); PLATELET COUNT 327 10x3/uL (130-400); RBC 3.89 10x6/uL (4.00-5.40); RDW 15.2 % (11.5-14.5); WBC 6.4 10x3/uL (4.8-10.8)
[2020-03-22 06:38] LABS: ALBUMIN 3.1 g/dL (3.4-5.0); BILIRUBIN - TOTAL 0.29 mg/dL (0.2-1.3); CALCIUM 8.6 mg/dL (8.5-10.1); CARBON DIOXIDE 33.1 mmol/L (21.0-32.0); CREATININE - SERUM 1.6 mg/dL (0.6-1.3); POTASSIUM - SERUM 4.1 mmol/L (3.5-5.1); PROTEIN - SERUM 6.9 g/dL (6.4-8.2)
--- NOTE | 2020-03-22 08:12 | NUR ---
resting in bed, no distress noted, o2 per nc at 5l, sl per rfa, cont to monitor resp status and pain
[2020-03-22 08:59] VITALS: BP 123/73
[2020-03-22 12:10] VITALS: BP 130/78
[2020-03-22 16:50] VITALS: BP 119/69
--- NOTE | 2020-03-22 18:47 | MORECARE ---
CASE MANAGEMENT DISCHARGE SUMMARY PATIENT: BABATUNDE CAMPOVERDE UNIT: [id number] ADM DATE: 03/11/20 AGE: 59 : 56 SEX: F ROOM/BED: D.2219 AUTHOR: FEDE,DOC PHYSICIAN: REFERRING PHYSICIAN: TERESA MERCADO MD DATE OF SERVICE: 03/22/20 Discharge Plan Patient Name: BABATUNDE CAMPOVERDE Facility: [facility]:[place] : 1960 Planned Disposition: Home Anticipated Discharge Date: Discharge Date: Expected LOS: Initial Reviewer: [email or web address] Initial Review Date: 03/11/2020 Generated: 03/22/20 7:47 pm Comments DCP- Discharge Planning Updated by [email or web address]: Antionette Mclaughlin on 03/22/20 5:[address] LATE ENTRY 03/20/[address] Noriega to see if patient needs trilogy or cpap at home. He stated no her 02 just drops when she is up moving around. We just need to wean the 02 down. CM will continue to follow and assist as needed with discharge planning / needs. DCP- Discharge Planning Updated by [email or web address]: Antionette Mclaughlin on 03/16/20 5:[address] Patient Name: BABATUNDE CAMPOVERDE Admission Status: ER Accout number: [id number] Admission Date: 03-11-2020 : 1960 Admission Diagnosis:ACUTE KIDNEY FAILURE, UNSPECIFIED Attending: SUDHEER Current LOS: 5 Anticipated DC Date: Planned Disposition: Home Primary Insurance: [facility] MEDICARE SOLUTIONS Discharge Planning Comments: CM met with patient to complete initial dc planning assessment. CM educated patient on the CM role and verbal consent given by patient to complete assessment. Patient lives at home with family. Patient is independent. At discharge patient plans to return home and feels this is a safe discharge. CM discussed availability of home health, rehab services, and medical equipment. Patient states that she has a nurse that visits once a month. Patient states that she has home / portable 02 and a nebulizer. Patient would like a 4 prong cane for being unsteady. NICHOLE signed no preference in [employer] company. Patient will have family to transport home. Patient denied known discharge needs at this time. CM will continue to follow and will assist as needed with dc plans/needs. Painting Worker: Antionette cMlaughlin DCPIA - Discharge Planning Initial Assessment Updated by [email or web address]: Antionette Mclaughlin on 03/16/20 6:40 pm * Is the patient Alert and Oriented? Yes * How many steps to enter\exit or inside your home? * PCP [facility] * Pharmacy [facility] * Preadmission Environment Home with Family * ADLs Independent * Equipment Nebulizer * Other Equipment HOME / PORTABLE 02 * List name and contact numbers for known caregivers / representatives who currently or will assist patient after discharge: OFELIA CAMPOVERDE - [phone], * Verbal permission to speak to the caregivers and representatives has been obtained from the patient. Yes * Additional services required to return to the preadmission environment? No * Can the patient safely return to the preadmission environment? Yes * Has this patient been hospitalized within the prior 30 days at any hospital? No Coverage Notice Reviewer: [email or web address] - Antionette Mclaughlin Notice Issued Date-Time: 03/16/2020 18:45 Notice Type: Patient Choice Letter Notice Delivered To: Patient Relationship to Patient: Self First Cook Name: Delivery Method: HAND - Hand Delivered Slime Days: Prior Verbal Notification: Recipient Understood Notice: Yes Recipient Signature: Yes Med Rec Note Co-signed by Attending: Coverage Notice Comment: no preference in DME Last DP export: 03/16/20 5:48 p Patient Name: BABATUNDE CAMPOVERDE Page [id number] at 1847 All edits/amendments must be made on the electronic document DICTATION DATE: 03/22/201846 COCOA BUTTER FILTER OPERATOR: HEDY 03/22/201846 RPT#: [id number] DC DATE: STATUS: ADM IN [facility] [address] [place] [address] END OF REPORT
[2020-03-22 20:00] VITALS: BP 131/72
[2020-03-23] VITALS: BP 136/79
[2020-03-23 04:00] VITALS: BP 112/75
[2020-03-23 05:01] LABS: BASOPHILS 0.3 % (0-2); HEMATOCRIT 37.8 % (36.0-48.0); HEMOGLOBIN 10.8 g/dL (12-16); IMMATURE GRANULOCYTES 0.4 % (0-5); LYMPHOCYTES 15.9 % (15-50); MCH 26.2 pg (26.0-34.0); MCHC 28.6 g/dL (31.0-37.0); MCV 91.7 fL (80.0-100.0); MEAN PLATELET VOLUME 10.1 fL (7.4-10.4); MONOCYTES 16.2 % (2-11); NEUTROPHILS 64.2 % (40-80); PLATELET COUNT 297 10x3/uL (130-400); RBC 4.12 10x6/uL (4.00-5.40); RDW 15.1 % (11.5-14.5)
[2020-03-23 05:28] LABS: ALBUMIN 3.2 g/dL (3.4-5.0); ANION GAP 3.5 mmol/L (8-16); BILIRUBIN - TOTAL 0.26 mg/dL (0.2-1.3); CALCIUM 8.8 mg/dL (8.5-10.1); CARBON DIOXIDE 36.8 mmol/L (21.0-32.0); CREATININE - SERUM 1.6 mg/dL (0.6-1.3); POTASSIUM - SERUM 4.3 mmol/L (3.5-5.1); PROTEIN - SERUM 7.2 g/dL (6.4-8.2)
--- NOTE | 2020-03-23 07:38 | NUR ---
ASSESSMENT PER FLOW SHEET. PAIENT IS WITHOUT DISTRESS. C/O CHROIC BACK PAIN 9/10 SCALE.PO PAIN MEDS D'CD AT THIS TIME.PAGE FOR MEDS TO BE RENEWED.
--- NOTE | 2020-03-23 07:50 | NUR ---
CALL BACK FROM SHASHANK LUTHER APN,ORDERS RECIEVED AND INITIATED.
[2020-03-23 08:27] VITALS: BP 115/64
--- NOTE | 2020-03-23 09:09 | EC ---
PATIENT:BABATUNDE CAMPOVERDE DATE OF SERVICE: 03/11/20 SEX: F MEDICAL RECORD: [id number] DATE OF : 56 LOCATION:D.MS [place] AGE OF PATIENT: 59 ADMISSION DATE: 03/11/20 REFERRING PHYSICIAN: INTERPRETING PHYSICIAN: TERESA WANG MD ECHOCARDIOGRAM REPORT ECHO CHARGES 4 ECHO COMPLETE Date: 03/12/20 CLINICAL DIAGNOSIS: HX:AFIB, SOB ECHOCARDIOGRAPHIC MEASUREMENTS (adult normal given) AC root (d.<3.7cm) 2.6 cm LV Septum d (<1.2 cm> 0.7 cm Valve Excursion 1.7 cm LV Septum (systole) 1.3 cm Left Atria (s.<4.0cm> 3.5 cm LVPW d(<1.2cm) 0.9 cm RV (d.<2.3cm) 3.4 cm LVPW (sytole) 1.0 cm LV diastole(<5.6CM) 5.6 cm MV E-F(>70mm/sec) cm LV systole 4.3 cm LVOT Diameter 1.8 cm MV exc.(>10mm) cm Est.ejection fraction (50-75%) % DOPPLER: LVIT cm/sec A 35 cm/sec E 121 cm/sec LA cm/sec RVSP 41.0 mmHg LVOT 101 cm/sec AOP1/2T m/s Asc. Ao 97 cm/sec RVOT 35 cm/sec RA cm/sec PA 41 cm/sec AV Gradient Peak 3.8 mmHg AV Mean 2.2 mmHg AV Area 3.5 cm MV Gradient Peak 5.4 mmHg MV Mean 1.7 mmHg MV Area cm COMMENTS: Cable Armorer: Katherine LEVINE Electrostatic Paint Operator: 3 Dr. Zelaya TAPE# PACS Pericardial Effusion N DATE OF SERVICE: Adequate 2D, color flow imaging, spectral Doppler, and M-Mode. No LVH. LV internal dimensions are normal. 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 Aortic valve is tricuspid. No evidence of stenosis by Doppler interrogation. Left atrium is normal at 3.5 cm. Mitral valve shows no prolapse. Mild MR. Right-sided chambers are obviously dilated. Moderate TR. RV systolic pressure is estimated greater than or equal to 41 mmHg via the continuity equation. ECHOCARDIOGRAM REPORT [id number] BABATUNDE CAMPOVERDE TRANSINT:[id number] Voice Confirmation ID: [id number] DOCUMENT ID: [id number] TERESA WANG MD at 0909 CC: [id number] DICTATION DATE: 03/12/20 161 BOTTOM PAINTER: 03/12/20 2338 ADM IN [facility] [address] [place] [address]
[2020-03-23 12:41] VITALS: BP 125/74
[2020-03-23 16:46] VITALS: BP 140/71
[2020-03-23 20:00] VITALS: BP 96/59
[2020-03-24] VITALS: BP 107/67
[2020-03-24 04:00] VITALS: BP 112/55
[2020-03-24 06:06] LABS: BASOPHILS 0.2 % (0-2); EOSINOPHILS 3.7 % (0-7); HEMATOCRIT 36.8 % (36.0-48.0); HEMOGLOBIN 10.6 g/dL (12-16); IMMATURE GRANULOCYTES 0.2 % (0-5); LYMPHOCYTES 19.2 % (15-50); MCHC 28.8 g/dL (31.0-37.0); MCV 90.4 fL (80.0-100.0); MONOCYTES 14.5 % (2-11); NEUTROPHILS 62.2 % (40-80); PLATELET COUNT 283 10x3/uL (130-400); RBC 4.07 10x6/uL (4.00-5.40); RDW 15.1 % (11.5-14.5)
[2020-03-24 06:25] LABS: ANION GAP 9.5 mmol/L (8-16); BILIRUBIN - TOTAL 0.2 mg/dL (0.2-1.3); CALCIUM 8.6 mg/dL (8.5-10.1); CARBON DIOXIDE 32.9 mmol/L (21.0-32.0); CREATININE - SERUM 1.6 mg/dL (0.6-1.3); MAGNESIUM - SERUM 1.6 mg/dL (1.8-2.4); PHOSPHOROUS 4.8 mg/dL (2.5-4.9); POTASSIUM - SERUM 4.4 mmol/L (3.5-5.1); PROTEIN - SERUM 6.4 g/dL (6.4-8.2)
[2020-03-24 08:41] VITALS: BP 102/64
--- NOTE | 2020-03-24 09:03 | NUR ---
SHE IS ALERT, STATES SHE IS FEELING BETTER. THE CALL LIHGT IS WITHIN REACH. DENIES ANY NEEDS AT THIS TIME. WEARING 6 LITERS NC.
[2020-03-24 12:07] VITALS: BP 95/66
--- NOTE | 2020-03-24 14:32 | MORECARE ---
CASE MANAGEMENT DISCHARGE SUMMARY PATIENT: BABATUNDE CAMPOVERDE UNIT: [id number] ADM DATE: 03/11/20 AGE: 59 : 56 SEX: F ROOM/BED: D.2219 AUTHOR: FEDE,DOC PHYSICIAN: REFERRING PHYSICIAN: TERESA MERCADO MD DATE OF SERVICE: 03/24/20 Discharge Plan Patient Name: BABATUNDE CAMPOVERDE Facility: [facility]:[place] : 1960 Planned Disposition: Home Anticipated Discharge Date: Discharge Date: Expected LOS: Initial Reviewer: [email or web address] Initial Review Date: 03/11/2020 Generated: 03/24/20 3:32 pm Comments DCP- Discharge Planning Updated by [email or web address]: Bri Garcia on 03/24/20 1:[address] SPOKE WITH PATIENT AND SISTER AT LENGTH ABOUT NIV, NICHOLE WITH [facility] AND IMM EXPLAINED AND SIGNED. PATIENT STATES THAT HER DME HAS TRIED TO GET APPROVED WITHOUT SUCCESS. CM HAS SENT REFERRAL TO [place] WITH [facility] DCP- Discharge Planning Updated by [email or web address]: Antionette Mclaughlin on 03/22/20 5:[address] LATE ENTRY 03/20/[address] Noriega to see if patient needs trilogy or cpap at home. He stated no her 02 just drops when she is up moving around. We just need to wean the 02 down. CM will continue to follow and assist as needed with discharge planning / needs. DCP- Discharge Planning Updated by [email or web address]: Antionette Mclaughlin on 03/16/20 5:[address] Patient Name: BABATUNDE CAMPOVERDE Admission Status: ER Accout number: [id number] Admission Date: 03-11-2020 : 1960 Admission Diagnosis:ACUTE KIDNEY FAILURE, UNSPECIFIED Attending: SUDHEER Current LOS: 5 Anticipated DC Date: Planned Disposition: Home Primary Insurance: [facility] MEDICARE SOLUTIONS Discharge Planning Comments: CM met with patient to complete initial dc planning assessment. CM educated patient on the CM role and verbal consent given by patient to complete assessment. Patient lives at home with family. Patient is independent. At discharge patient plans to return home and feels this is a safe discharge. CM discussed availability of home health, rehab services, and medical equipment. Patient states that she has a nurse that visits once a month. Patient states that she has home / portable 02 and a nebulizer. Patient would like a 4 prong cane for being unsteady. NICHOLE signed no preference in DME company. Patient will have family to transport home. Patient denied known discharge needs at this time. CM will continue to follow and will assist as needed with dc plans/needs. Nail Making Machine Tender: Antionette Mclaughlin DCPIA - Discharge Planning Initial Assessment Updated by [email or web address]: Antionette Mclaughlin on 03/16/20 6:40 pm * Is the patient Alert and Oriented? Yes * How many steps to enter\exit or inside your home? * PCP [facility] * Pharmacy [facility] * Preadmission Environment Home with Family * ADLs Independent * Equipment Nebulizer * Other Equipment HOME / PORTABLE 02 * List name and contact numbers for known caregivers / representatives who currently or will assist patient after discharge: OFELIA CAMPOVERDE - [phone], * Verbal permission to speak to the caregivers and representatives has been obtained from the patient. Yes * Additional services required to return to the preadmission environment? No * Can the patient safely return to the preadmission environment? Yes * Has this patient been hospitalized within the prior 30 days at any hospital? No External Providers External Provider: Zachary Next Contact Date: Service Request Date: Service Type: Resolution: Reviewer: Comments: Coverage Notice Reviewer: [id number] - Antionette Mclaughlin Notice Issued Date-Time: 03/16/2020 18:45 Notice Type: Patient Choice Letter Notice Delivered To: Patient Relationship to Patient: Self Loft Patternmaker Name: Delivery Method: HAND - Hand Delivered Slime Days: Prior Verbal Notification: Recipient Understood Notice: Yes Recipient Signature: Yes Med Rec Note Co-signed by Attending: Coverage Notice Comment: no preference in DME Last DP export: 03/22/20 5:47 p Patient Name: BABATUNDE CAMPOVERDE Page [id number] at 1432 All edits/amendments must be made on the electronic document DICTATION DATE: 03/24/20 1432 SEO INTERN: HEDY 03/24/20 1432 RPT#: [id number] DC DATE: STATUS: ADM IN [facility] [address] [place] [address] END OF REPORT
--- NOTE | 2020-03-24 15:20 | NUR ---
Nutrition Follow-up: Bipap during PM. Diet: Renal ADA 2400cal PO intake: ~88% average x last 6 meals Last BM: 03/23/20. Wt: 166# (03/20/20) Meds noted: lasix. Labs noted: BUN 28(H), Cr 1.6(H), GFR 35(L) Recommend continue current diet. RD following.
[2020-03-24 16:42] VITALS: BP 96/46
[2020-03-24 20:00] VITALS: BP 104/46
[2020-03-25] VITALS: BP 97/58
[2020-03-25 04:00] VITALS: BP 111/67
--- NOTE | 2020-03-25 04:55 | NUR ---
ALERT AND ORENTED ABLE TO VOICE NEEDS AND WANTS TO STAFF. IV TO RIGHT WRIST PATIEN. O2 AT 6LETERS VIA [place] N/C. AND BI PAP AT NIGHT. UP AT [facility]. C/O NAUSEA ASK FOR PHENERGAN THAT WAS ORDERED PHENERGAN ORDER WAS FOR 25 MG TO BE GIVEN IV, CALL TO STRATEGIC MANAGER NEW ORDER TO GIVE PHENERGAN 25MG IM. GIVEN WITH GOOD RESULT. PO FLUIDS AND CALL LIGHT IN REACH.
[2020-03-25 05:32] LABS: BASOPHILS 0.1 % (0-2); EOSINOPHILS 2.4 % (0-7); HEMATOCRIT 38.2 % (36.0-48.0); IMMATURE GRANULOCYTES 0.3 % (0-5); LYMPHOCYTES 14.5 % (15-50); MCH 26.2 pg (26.0-34.0); MCHC 28.8 g/dL (31.0-37.0); MEAN PLATELET VOLUME 10.1 fL (7.4-10.4); MONOCYTES 11.6 % (2-11); NEUTROPHILS 71.1 % (40-80); PLATELET COUNT 251 10x3/uL (130-400); RDW 15.4 % (11.5-14.5); WBC 6.7 10x3/uL (4.8-10.8)
[2020-03-25 05:39] LABS: ALBUMIN 3.2 g/dL (3.4-5.0); ANION GAP 9.4 mmol/L (8-16); BILIRUBIN - TOTAL 0.26 mg/dL (0.2-1.3); CALCIUM 8.7 mg/dL (8.5-10.1); CREATININE - SERUM 1.8 mg/dL (0.6-1.3); MAGNESIUM - SERUM 1.8 mg/dL (1.8-2.4); PHOSPHOROUS 4.5 mg/dL (2.5-4.9); POTASSIUM - SERUM 4.4 mmol/L (3.5-5.1); PROTEIN - SERUM 7.3 g/dL (6.4-8.2)
--- NOTE | 2020-03-25 08:21 | NUR ---
SHE HAS THE BIPAP ON. SHE IS AWAKE. PRN GIVEN FOR PAIN. WAITING TO GET MACHINE FOR HOME USE.THE CALL LIGHT IS WITHIN REACH.
[2020-03-25 08:35] VITALS: BP 111/75
[2020-03-25 12:22] VITALS: BP 101/58
--- NOTE | 2020-03-25 14:25 | MORECARE ---
CASE MANAGEMENT DISCHARGE SUMMARY PATIENT: BABATUNDE CAMPOVERDE UNIT: [id number] ADM DATE: 03/11/20 AGE: 59 : 56 SEX: F ROOM/BED: D.2219 AUTHOR: FEDE,DOC PHYSICIAN: REFERRING PHYSICIAN: TERESA MERCADO MD DATE OF SERVICE: 03/25/20 Discharge Plan Patient Name: BABATUNDE CAMPOVERDE Facility: [facility]:[place] : 1960 Planned Disposition: Home Anticipated Discharge Date: Discharge Date: Expected LOS: Initial Reviewer: [email or web address] Initial Review Date: 03/11/2020 Generated: 03/25/20 3:24 pm Comments DCP- Discharge Planning Updated by [email or web address]: Bri Garcia on 03/25/20 1:[address] triliogy has been approved through [facility] [employer], when discharged need to call them and they will come set up at home. Patient's POX was 78-81% on 4L, bipap placed on patient DCP- Discharge Planning Updated by [email or web address]: Bri Garcia on 03/24/20 1:[address] SPOKE WITH PATIENT AND SISTER AT LENGTH ABOUT NIV, NICHOLE WITH [facility] AND IMM EXPLAINED AND SIGNED. PATIENT STATES THAT HER DME HAS TRIED TO GET APPROVED WITHOUT SUCCESS. CM HAS SENT REFERRAL TO [place] WITH [facility] DCP- Discharge Planning Updated by [email or web address]: Antionette Mclaughlin on 03/22/20 5:[address] LATE ENTRY 03/20/[address] Noriega to see if patient needs trilogy or cpap at home. He stated no her 02 just drops when she is up moving around. We just need to wean the 02 down. CM will continue to follow and assist as needed with discharge planning / needs. DCP- Discharge Planning Updated by [id number]: Antionette Mclaughlin on 03/16/20 5:[address] Patient Name: BABATUNDE CAMPOVERDE Admission Status: ER Accout number: [id number] Admission Date: 03-11-2020 : 1960 Admission Diagnosis:ACUTE KIDNEY FAILURE, UNSPECIFIED Attending: SUDHEER Current LOS: 5 Anticipated DC Date: Planned Disposition: Home Primary Insurance: [facility] MEDICARE SOLUTIONS Discharge Planning Comments: CM met with patient to complete initial dc planning assessment. CM educated patient on the CM role and verbal consent given by patient to complete assessment. Patient lives at home with family. Patient is independent. At discharge patient plans to return home and feels this is a safe discharge. CM discussed availability of home health, rehab services, and medical equipment. Patient states that she has a nurse that visits once a month. Patient states that she has home / portable 02 and a nebulizer. Patient would like a 4 prong cane for being unsteady. NICHOLE signed no preference in DME company. Patient will have family to transport home. Patient denied known discharge needs at this time. CM will continue to follow and will assist as needed with dc plans/needs. Manager Lan: Antionette Mclaughlin DCPIA - Discharge Planning Initial Assessment Updated by [id number]: Antionette Mclaughlin on 03/16/20 6:40 pm * Is the patient Alert and Oriented? Yes * How many steps to enter\exit or inside your home? * PCP [facility] * Pharmacy [facility] * Preadmission Environment Home with Family * ADLs Independent * Equipment Nebulizer * Other Equipment HOME / PORTABLE 02 * List name and contact numbers for known caregivers / representatives who currently or will assist patient after discharge: OFELIA CAMPOVERDE - [phone], * Verbal permission to speak to the caregivers and representatives has been obtained from the patient. Yes * Additional services required to return to the preadmission environment? No * Can the patient safely return to the preadmission environment? Yes * Has this patient been hospitalized within the prior 30 days at any hospital? No Coverage Notice Reviewer: [id number] - Antionette Mclaughlin Notice Issued Date-Time: 03/16/2020 18:45 Notice Type: Patient Choice Letter Notice Delivered To: Patient Relationship to Patient: Self Seed Laboratory Technician Name: Delivery Method: HAND - Hand Delivered Slime Days: Prior Verbal Notification: Recipient Understood Notice: Yes Recipient Signature: Yes Med Rec Note Co-signed by Attending: Coverage Notice Comment: no preference in DME Reviewer: [id number] Lauren Garcia Notice Issued Date-Time: 03/24/2020 14:25 Notice Type: IM Discharge Notice Notice Delivered To: Patient Relationship to Patient: Seed Laboratory Technician Name: Delivery Method: HAND - Hand Delivered Slime Days: Prior Verbal Notification: Recipient Understood Notice: Yes Recipient Signature: Yes Med Rec Note Co-signed by Attending: Coverage Notice Comment: Reviewer: [id number] - Bri Garcia Notice Issued Date-Time: 03/24/2020 14:25 Notice Type: Patient Choice Letter Notice Delivered To: Patient Relationship to Patient: Seed Laboratory Technician Name: Delivery Method: HAND - Hand Delivered Slime Days: Prior Verbal Notification: Recipient Understood Notice: Yes Recipient Signature: Yes Med Rec Note Co-signed by Attending: Coverage Notice Comment: NICHOLE VILLASENOR Last DP export: 03/24/20 1:32 p Patient Name: BABATUNDE CAMPOVERDE Page [phone] at 1425 All edits/amendments must be made on the electronic document DICTATION DATE: 03/25/201423 EXECUTIVE ADMINISTRATIVE ASSISTANT: HEDY 03/25/20 1424 RPT#: [id number] DC DATE: STATUS: ADM IN [facility] [address] [place] [address] END OF REPORT
--- NOTE | 2020-03-25 16:18 | NUR ---
REPORT CALLED TO LAURA ON MED 2.
[2020-03-25 18:56] VITALS: BP 121/65
--- NOTE | 2020-03-25 19:15 | NUR ---
PATIENT IS RESTING COMFORTABLY IN BED WITH BIPAP ON. PATIENT IS ALERT AND ORIENTATED. SHE HAS DOBUTAMINE DRIP GOING INTO RFA IV. WE WILL CONTINUE TO MONITOR PATIENT.
[2020-03-25 20:00] VITALS: BP 113/55
[2020-03-26] VITALS: BP 109/58
--- NOTE | 2020-03-26 05:19 | NUR ---
PATIENT IS SLEEPING COMFORTABLY IN BED. SHE HAS WORN THE BIPAP ALL NIGHT. SHE IS ALERT AND ORIENTED. SHE HAS HAD ONE VICOPROFEN THIS SHIFT FOR BACK PAIN. SHE IS STILL ON DOBUTAMINE DRIP. WE WILL CONTINUE TO MONITOR HER RATE AND RHYTHYM ON TELEMETRY.
[2020-03-26 06:32] LABS: BASOPHILS 0.4 % (0-2); EOSINOPHILS 4.6 % (0-7); HEMATOCRIT 36.1 % (36.0-48.0); HEMOGLOBIN 10.3 g/dL (12-16); IMMATURE GRANULOCYTES 0.2 % (0-5); LYMPHOCYTES 24.4 % (15-50); MCH 25.9 pg (26.0-34.0); MCHC 28.5 g/dL (31.0-37.0); MCV 90.9 fL (80.0-100.0); MEAN PLATELET VOLUME 10.2 fL (7.4-10.4); MONOCYTES 12.5 % (2-11); NEUTROPHILS 57.9 % (40-80); PLATELET COUNT 222 10x3/uL (130-400); RBC 3.97 10x6/uL (4.00-5.40); RDW 15.4 % (11.5-14.5)
[2020-03-26 06:38] LABS: WBC 4.8 10x3/uL (4.8-10.8)
[2020-03-26 06:51] LABS: ANION GAP 8.6 mmol/L (8-16); BILIRUBIN - TOTAL 0.23 mg/dL (0.2-1.3); CALCIUM 8.6 mg/dL (8.5-10.1); CARBON DIOXIDE 31.8 mmol/L (21.0-32.0); CREATININE - SERUM 1.7 mg/dL (0.6-1.3); PHOSPHOROUS 4.6 mg/dL (2.5-4.9); POTASSIUM - SERUM 4.4 mmol/L (3.5-5.1)
--- NOTE | 2020-03-26 08:30 | NUR ---
OFF BIPAP FOR BRK. O2 SAT 91% ON 6L HF. WILL CONT. PLAN OF CARE.
--- NOTE | 2020-03-26 09:59 | NUR ---
Nutrition Follow-up: On bipap this AM but reports eating >50% of breakfast. Diet: Renal ADA PO intake: 79% avg x 6 meals Wt: 144.6# (03/25); 149# (03/11) Last recorded BM: 03/25 Labs noted: K+ 4.4, Glu 90, PO4 4.6, Alb 3.0 Meds noted: Lasix, Pepcid, electrolyte protocol -Encourage PO intake and honor food preferences within diet restrictions. -Monitor wt. -RD following.
[2020-03-26 10:16] VITALS: BP 111/59
[2020-03-26 12:00] VITALS: BP 120/63
--- NOTE | 2020-03-26 13:27 | MORECARE ---
CASE MANAGEMENT DISCHARGE SUMMARY PATIENT: BABATUNDE CAMPOVERDE UNIT: [id number] ADM DATE: 03/11/20 AGE: 59 : 56 SEX: F ROOM/BED: D.7129 AUTHOR: FEDE,DOC PHYSICIAN: REFERRING PHYSICIAN: TERESA MERCADO MD DATE OF SERVICE: 03/26/20 Discharge Plan Patient Name: BABATUNDE CAMPOVERDE Facility: [facility]:[place] : 1960 Planned Disposition: Home Anticipated Discharge Date: Discharge Date: Expected LOS: Initial Reviewer: [id number] Initial Review Date: 03/11/2020 Generated: 03/26/20 2:26 pm Comments DCP- Discharge Planning Updated by [email or web address]: Bri Garcia on 03/25/20 1:[address] triliogy has been approved through [facility], when discharged need to call them and they will come set up at home. Patient's POX was 78-81% on 4L, bipap placed on patient DCP- Discharge Planning Updated by [email or web address]: Bri Garcia on 03/24/20 1:[address] SPOKE WITH PATIENT AND SISTER AT LENGTH ABOUT NIV, NICHOLE WITH [facility] AND IMM EXPLAINED AND SIGNED. PATIENT STATES THAT HER DME HAS TRIED TO GET APPROVED WITHOUT SUCCESS. CM HAS SENT REFERRAL TO [place] [place] WITH [facility] DCP- Discharge Planning Updated by [email or web address]: Antionette Mclaughlin on 03/22/20 5:[address] LATE ENTRY 03/20/[address] Noriega to see if patient needs trilogy or cpap at home. He stated no her 02 just drops when she is up moving around. We just need to wean the 02 down. CM will continue to follow and assist as needed with discharge planning / needs. DCP- Discharge Planning Updated by [email or web address]: Antionette Mclaughlin on 03/16/20 5:[address] Patient Name: BABATUNDE CAMPOVERDE Admission Status: ER Accout number: [id number] Admission Date: 03-11-2020 : 1960 Admission Diagnosis:ACUTE KIDNEY FAILURE, UNSPECIFIED Attending: SUDHEER Current LOS: 5 Anticipated DC Date: Planned Disposition: Home Primary Insurance: [facility] MEDICARE SOLUTIONS Discharge Planning Comments: CM met with patient to complete initial dc planning assessment. CM educated patient on the CM role and verbal consent given by patient to complete assessment. Patient lives at home with family. Patient is independent. At discharge patient plans to return home and feels this is a safe discharge. CM discussed availability of home health, rehab services, and medical equipment. Patient states that she has a nurse that visits once a month. Patient states that she has home / portable 02 and a nebulizer. Patient would like a 4 prong cane for being unsteady. NICHOLE signed no preference in DME company. Patient will have family to transport home. Patient denied known discharge needs at this time. CM will continue to follow and will assist as needed with dc plans/needs. Branding Machine Tender: Antionette Mclaughlin DCPIA - Discharge Planning Initial Assessment Updated by [email or web address]: Antionette Mclaughlin on 03/16/20 6:40 pm * Is the patient Alert and Oriented? Yes * How many steps to enter\exit or inside your home? * PCP [facility] * Pharmacy [facility] * Preadmission Environment Home with Family * ADLs Independent * Equipment Nebulizer * Other Equipment HOME / PORTABLE 02 * List name and contact numbers for known caregivers / representatives who currently or will assist patient after discharge: OFELIA CAMPOVERDE - [phone], * Verbal permission to speak to the caregivers and representatives has been obtained from the patient. Yes * Additional services required to return to the preadmission environment? No * Can the patient safely return to the preadmission environment? Yes * Has this patient been hospitalized within the prior 30 days at any hospital? No Coverage Notice Reviewer: [id number] - Antionette Mclaughlin Notice Issued Date-Time: 03/16/2020 18:45 Notice Type: Patient Choice Letter Notice Delivered To: Patient Relationship to Patient: Self Pattern Grader Cutter Name: Delivery Method: HAND - Hand Delivered Slime Days: Prior Verbal Notification: Recipient Understood Notice: Yes Recipient Signature: Yes Med Rec Note Co-signed by Attending: Coverage Notice Comment: no preference in DME Reviewer: [id number] Lauren Garcia Notice Issued Date-Time: 03/24/2020 14:25 Notice Type: IM Discharge Notice Notice Delivered To: Patient Relationship to Patient: Pattern Grader Cutter Name: Delivery Method: HAND - Hand Delivered Slime Days: Prior Verbal Notification: Recipient Understood Notice: Yes Recipient Signature: Yes Med Rec Note Co-signed by Attending: Coverage Notice Comment: Reviewer: [id number] - Bri Garcia Notice Issued Date-Time: 03/24/2020 14:25 Notice Type: Patient Choice Letter Notice Delivered To: Patient Relationship to Patient: Pattern Grader Cutter Name: Delivery Method: HAND - Hand Delivered Slime Days: Prior Verbal Notification: Recipient Understood Notice: Yes Recipient Signature: Yes Med Rec Note Co-signed by Attending: Coverage Notice Comment: NICHOLE VILLASENOR Last DP export: 03/25/20 1:25 pm Patient Name: BABATUNDE CAMPOVERDE Page [id number] at 1327 All edits/amendments must be made on the electronic document DICTATION DATE: 03/26/20 1326 SHELL ASSEMBLER: HEDY 03/26/20 1326 RPT#: [id number] DC DATE: STATUS: ADM IN [place] [address] [place] [address] END OF REPORT
[2020-03-26 16:00] VITALS: BP 98/58
--- NOTE | 2020-03-26 19:17 | NUR ---
PATIENT IS RESTING COMFORTABLY IN BED. SHE IS ALERT AND ORIENTED. SHE IS ON THE BIPAP. SHE IS STILL ON DOBUTAMINE DRIP. SHE IS NOW RECEIVING A BREATHING TREATMENT FROM RESPIRATORY. SHE IS UP INDEPENDENT. WE WILL CONTINUE TO MONITOR HER RESPIRATORY STATUS.
[2020-03-26 20:00] VITALS: BP 113/72
--- NOTE | 2020-03-26 23:21 | NUR ---
22 GAUGE IV IN RIGHT FORE ARM CAME OUT. NEW 20 GAUGE WAS STARTED IN RIGHT WRIST. PATIENT TOLERATED WITH NO PROBLEMS. DOBUTAMINE DRIP RESTARTED.
[2020-03-27] VITALS: BP 115/77
[2020-03-27 04:00] VITALS: BP 136/76
--- NOTE | 2020-03-27 04:57 | NUR ---
PATIENT IS RESTING COMFORTABLY IN BED. NO COMPLAINTS. SHE IS BEEN ON THE BIPAP ALL NIGHT. SHE IS STILL ON DOBUTAMINE DRIP. WE WILL CONTINUE TO MONITOR HER HEART RATE AND RHYTHM.
[2020-03-27 05:08] LABS: BASOPHILS 0.2 % (0-2); EOSINOPHILS 3.6 % (0-7); HEMATOCRIT 34.5 % (36.0-48.0); HEMOGLOBIN 9.9 g/dL (12-16); IMMATURE GRANULOCYTES 0.4 % (0-5); LYMPHOCYTES 24.3 % (15-50); MCH 25.9 pg (26.0-34.0); MCHC 28.7 g/dL (31.0-37.0); MCV 90.3 fL (80.0-100.0); MEAN PLATELET VOLUME 10.2 fL (7.4-10.4); MONOCYTES 10.5 % (2-11); PLATELET COUNT 219 10x3/uL (130-400); RBC 3.82 10x6/uL (4.00-5.40); RDW 15.6 % (11.5-14.5); WBC 5.3 10x3/uL (4.8-10.8)
[2020-03-27 05:31] LABS: ALBUMIN 3.1 g/dL (3.4-5.0); ANION GAP 6.9 mmol/L (8-16); BILIRUBIN - TOTAL 0.29 mg/dL (0.2-1.3); CALCIUM 8.4 mg/dL (8.5-10.1); CARBON DIOXIDE 33.2 mmol/L (21.0-32.0); CREATININE - SERUM 1.8 mg/dL (0.6-1.3); MAGNESIUM - SERUM 1.8 mg/dL (1.8-2.4); POTASSIUM - SERUM 4.1 mmol/L (3.5-5.1); PROTEIN - SERUM 7.1 g/dL (6.4-8.2)
--- NOTE | 2020-03-27 07:15 | NUR ---
RECEIVED PT IN BED EYES CLOSED RESP ON BIPAP SKIN W/D COLOR WNL NAD NOTED WILL CONTINUE TO MONITOR
[2020-03-27 09:26] VITALS: BP 148/72
--- NOTE | 2020-03-27 09:55 | MORECARE ---
CASE MANAGEMENT DISCHARGE SUMMARY PATIENT: BABATUNDE CAMPOVERDE UNIT: [id number] ADM DATE: 03/11/20 AGE: 59 : 56 SEX: F ROOM/BED: D.6301 AUTHOR: FEDE,DOC PHYSICIAN: REFERRING PHYSICIAN: TERESA MERCADO MD DATE OF SERVICE: 03/27/20 Discharge Plan Patient Name: BABATUNDE CAMPOVERDE Facility: [facility]:[place] : 1960 Planned Disposition: Home Anticipated Discharge Date: Discharge Date: Expected LOS: 0 Initial Reviewer: [email or web address] Initial Review Date: 03/11/2020 Generated: 03/27/20 10:55 am DCP- Discharge Planning Updated by [email or web address]: Bri Garcia on 03/25/20 1:[address] triliogy has been approved through [facility], when discharged need to call them and they will come set up at home. Patient's POX was 78-81% on 4L, bipap placed on patient DCP- Discharge Planning Updated by [id number]: Bri Garcia on 03/24/20 1:[address] SPOKE WITH PATIENT AND SISTER AT LENGTH ABOUT NIV, NICHOLE WITH [facility] AND IMM EXPLAINED AND SIGNED. PATIENT STATES THAT HER DME HAS TRIED TO GET APPROVED WITHOUT SUCCESS. CM HAS SENT REFERRAL TO [facility] WITH [facility] DCP- Discharge Planning Updated by [email or web address]: Antionette Mclaughlin on 03/22/20 5:[address] LATE ENTRY 03/20/[address] Noriega to see if patient needs trilogy or cpap at home. He stated no her 02 just drops when she is up moving around. We just need to wean the 02 down. CM will continue to follow and assist as needed with discharge planning / needs. DCP- Discharge Planning Updated by [email or web address]: Antionette Mclaughlin on 03/16/20 5:[address] Patient Name: BABATUNDE CAMPOVERDE Admission Status: ER Accout number: [id number] Admission Date: 03-11-2020 : 1960 Admission Diagnosis:ACUTE KIDNEY FAILURE, UNSPECIFIED Attending: SUDHEER Current LOS: 5 Anticipated DC Date: Planned Disposition: Home Primary Insurance: [facility] MEDICARE SOLUTIONS Discharge Planning Comments: CM met with patient to complete initial dc planning assessment. CM educated patient on the CM role and verbal consent given by patient to complete assessment. Patient lives at home with family. Patient is independent. At discharge patient plans to return home and feels this is a safe discharge. CM discussed availability of home health, rehab services, and medical equipment. Patient states that she has a nurse that visits once a month. Patient states that she has home / portable 02 and a nebulizer. Patient would like a 4 prong cane for being unsteady. NICHOLE signed no preference in DME company. Patient will have family to transport home. Patient denied known discharge needs at this time. CM will continue to follow and will assist as needed with dc plans/needs. Refrigeration Mechanic Helper: Antionette Mclaughlin DCPIA - Discharge Planning Initial Assessment Updated by [email or web address]: Antionette Mclaughlin on 03/16/20 6:40 pm * Is the patient Alert and Oriented? Yes * How many steps to enter\exit or inside your home? * PCP [facility] * Pharmacy [facility] * Preadmission Environment Home with Family * ADLs Independent * Equipment Nebulizer * Other Equipment HOME / PORTABLE 02 * List name and contact numbers for known caregivers / representatives who currently or will assist patient after discharge: OFELIA CAMPOVERDE - [phone], * Verbal permission to speak to the caregivers and representatives has been obtained from the patient. Yes * Additional services required to return to the preadmission environment? No * Can the patient safely return to the preadmission environment? Yes * Has this patient been hospitalized within the prior 30 days at any hospital? No Coverage Notice Reviewer: [id number] - Antionette Mclaughlin Notice Issued Date-Time: 03/16/2020 18:45 Notice Type: Patient Choice Letter Notice Delivered To: Patient Relationship to Patient: Self Retail Department Supervisor Name: Delivery Method: HAND - Hand Delivered Slime Days: Prior Verbal Notification: Recipient Understood Notice: Yes Recipient Signature: Yes Med Rec Note Co-signed by Attending: Coverage Notice Comment: no preference in DME Reviewer: [id number] Lauren Garcia Notice Issued Date-Time: 03/24/2020 14:25 Notice Type: IM Discharge Notice Notice Delivered To: Patient Relationship to Patient: Retail Department Supervisor Name: Delivery Method: HAND - Hand Delivered Slime Days: Prior Verbal Notification: Recipient Understood Notice: Yes Recipient Signature: Yes Med Rec Note Co-signed by Attending: Coverage Notice Comment: Reviewer: [id number] - Bri Garcia Notice Issued Date-Time: 03/24/2020 14:25 Notice Type: Patient Choice Letter Notice Delivered To: Patient Relationship to Patient: Retail Department Supervisor Name: Delivery Method: HAND - Hand Delivered Slime Days: Prior Verbal Notification: Recipient Understood Notice: Yes Recipient Signature: Yes Med Rec Note Co-signed by Attending: Coverage Notice Comment: NICHOLE VILLASENOR Last DP export: 03/26/20 12:27 pm Patient Name: BABATUNDE CAMPOVERDE Page [id number] at 0955 All edits/amendments must be made on the electronic document DICTATION DATE: 03/27/20954 CELL ATTENDANT: HEDY 03/27/20954 RPT#: [id number] DC DATE: STATUS: ADM IN [place] [address] [place] [address] END OF REPORT
[2020-03-27 12:00] VITALS: BP 125/76
--- NOTE | 2020-03-27 20:00 | NUR ---
REPORT RECIEVED AND INITIAL ROUNDS COMPLETED. PT ALERT/ORIENTED AND RESTING IN BED. O2 @ 5L/HFNC AND WEARS BIPAP AT BEDTIME. DOBUTAMINE DRIP AT 8ML/HR INFUSING (2.5MCG/KG). SR PER TELEMETRY. CALL LIGHT IN REACH. CPOC.
[2020-03-27 21:30] VITALS: BP 109/74
--- NOTE | 2020-03-27 23:45 | NUR ---
PT C/O GENERALIZED DISCOMFORT. MEDICATED WITH VICOPROFEN. PT NOW ON HER BIPAP PER R.T. ASSISTED UP TO VOID AND CURRENT OUTPUT IS 500ML. CPOC. CALL LIGHT IN REACH.
[2020-03-28 00:30] VITALS: BP 137/73
[2020-03-28 04:30] VITALS: BP 110/63
[2020-03-28 05:23] LABS: BASOPHILS 0.2 % (0-2); EOSINOPHILS 5.2 % (0-7); HEMATOCRIT 36.3 % (36.0-48.0); HEMOGLOBIN 10.3 g/dL (12-16); LYMPHOCYTES 24.8 % (15-50); MCH 25.6 pg (26.0-34.0); MCHC 28.4 g/dL (31.0-37.0); MCV 90.1 fL (80.0-100.0); MEAN PLATELET VOLUME 9.9 fL (7.4-10.4); MONOCYTES 9.2 % (2-11); NEUTROPHILS 60.6 % (40-80); PLATELET COUNT 197 10x3/uL (130-400); RBC 4.03 10x6/uL (4.00-5.40); RDW 15.4 % (11.5-14.5); WBC 5.5 10x3/uL (4.8-10.8)
[2020-03-28 05:55] LABS: CALCIUM 9.2 mg/dL (8.5-10.1); CARBON DIOXIDE 32.3 mmol/L (21.0-32.0); CREATININE - SERUM 1.6 mg/dL (0.6-1.3); MAGNESIUM - SERUM 1.9 mg/dL (1.8-2.4); PHOSPHOROUS 4.8 mg/dL (2.5-4.9); POTASSIUM - SERUM 4.3 mmol/L (3.5-5.1)
--- NOTE | 2020-03-28 07:15 | NUR ---
RECEIVED PT IN BED EYES CLOSED RESP W/ BIPAP IN USED SKIN W/D COLOR WNL NAD NOTED WILL CONTINUE TO MONITOR
[2020-03-28 09:00] VITALS: BP 133/78
[2020-03-28 11:00] VITALS: BP 126/73
[2020-03-28 15:00] VITALS: BP 113/73
[2020-03-28 20:30] VITALS: BP 136/88
--- NOTE | 2020-03-28 22:35 | NUR ---
INITIAL ROUNDS COMPLETED AT 1910 HRS. RT RX IN PROGRESS. NO DISTRESS NOTED. ASSESSMENT COMPLETED AT 2015 HRS. VSS. SR PER CM HR 95. ALERT AND ORIENTED TO PERSON,PLACE AND TIME. MCCARTY. O2 6LHF O2. LUNGS DIMINISHED N BASES BILAT. IV TO R WRIST WITH DOBUTREX AT 2.5MCG/KG/MIN (4.9CC/). IV PATENT. PM MEDS GIVEN PER ORDERS. PT CURRENTLY RESTING WTHI EYES CLOSED. RESP EVEN AND REGUALR. BIPAP IN USE. SR UP X1, CALL LIGHT WITHIN REACH.
--- NOTE | 2020-03-29 00:10 | NUR ---
RT TX IN PROGRESS. NO DISTRESS NOTED. CALL LIGHT WITHIN REACH.
[2020-03-29 00:30] VITALS: BP 118/70
--- NOTE | 2020-03-29 03:01 | NUR ---
PT RESTING WITH EYES CLOSED. RESP EVEN AND REGULAR. CALL LIGHT WITHIN REACH.
--- NOTE | 2020-03-29 04:41 | NUR ---
PT RESTING WITH EYES CLOSED. RESP EVEN AND REGULAR. CALL LIGHT WITHIN REACH.
[2020-03-29 04:43] VITALS: BP 103/45
[2020-03-29 05:15] LABS: BASOPHILS 0.1 % (0-2); EOSINOPHILS 2.6 % (0-7); HEMATOCRIT 36.3 % (36.0-48.0); HEMOGLOBIN 10.3 g/dL (12-16); IMMATURE GRANULOCYTES 0.3 % (0-5); LYMPHOCYTES 13.7 % (15-50); MCH 25.6 pg (26.0-34.0); MCHC 28.4 g/dL (31.0-37.0); MCV 90.1 fL (80.0-100.0); MEAN PLATELET VOLUME 10.1 fL (7.4-10.4); MONOCYTES 7.9 % (2-11); NEUTROPHILS 75.4 % (40-80); PLATELET COUNT 204 10x3/uL (130-400); RBC 4.03 10x6/uL (4.00-5.40); RDW 15.7 % (11.5-14.5)
[2020-03-29 05:20] LABS: WBC 9.6 10x3/uL (4.8-10.8)
[2020-03-29 05:54] LABS: ANION GAP 8.3 mmol/L (8-16); CALCIUM 8.9 mg/dL (8.5-10.1); CARBON DIOXIDE 31.2 mmol/L (21.0-32.0); CREATININE - SERUM 1.8 mg/dL (0.6-1.3); MAGNESIUM - SERUM 1.6 mg/dL (1.8-2.4); PHOSPHOROUS 4.5 mg/dL (2.5-4.9); POTASSIUM - SERUM 4.5 mmol/L (3.5-5.1)
--- NOTE | 2020-03-29 06:52 | NUR ---
VSS THROUGHOUT NIGHT. SR PER CM. PT STATED VICOPROFEN ALLEVIATED BACK PAIN. NEEDS MET; WILL CONTINUE TO MONITOR.
[2020-03-29 08:31] VITALS: BP 95/55
[2020-03-29 13:20] VITALS: BP 96/69
--- NOTE | 2020-03-29 19:28 | NUR ---
INITIAL ROUNDS COMPLETED. PT DENIES ANY DISCOMFORT. CALL LIGHT WIHTIN REACH.
[2020-03-29 20:00] VITALS: BP 123/61
--- NOTE | 2020-03-29 21:44 | NUR ---
PT RESTING WITH EYES CLOSED. RESP EVEN AND REGULAR. CALL LIGHT WITHIN REACH.
--- NOTE | 2020-03-30 00:50 | NUR ---
PT RESTING WITH EYES CLOSED. RESP EVEN AND REGULAR. BIPAP IN USE. CALL LIGHT WITHIN REACH.
--- NOTE | 2020-03-30 02:58 | NUR ---
PT RESTING WITH EYES CLOSED. RESP EVEN AND REGULAR. CALL LIGHT WITHIN REACH.
--- NOTE | 2020-03-30 04:17 | NUR ---
PT UP TO BR. NO DISTRESS NOTED.
[2020-03-30 05:00] VITALS: BP 112/67
--- NOTE | 2020-03-30 05:50 | NUR ---
VSS THROUGHOUT NIGHT. PT STATES SVICOPROFEN CONTROLLED HER BACK PAIN. NEEDS MET; WILL CONTINUE TO MONITOR.
[2020-03-30 06:49] LABS: BASOPHILS 0.1 % (0-2); EOSINOPHILS 4.2 % (0-7); HEMATOCRIT 33.8 % (36.0-48.0); HEMOGLOBIN 9.8 g/dL (12-16); IMMATURE GRANULOCYTES 0.1 % (0-5); MCH 25.8 pg (26.0-34.0); MCV 88.9 fL (80.0-100.0); MEAN PLATELET VOLUME 10.3 fL (7.4-10.4); MONOCYTES 9.9 % (2-11); NEUTROPHILS 67.7 % (40-80); PLATELET COUNT 186 10x3/uL (130-400); RDW 15.7 % (11.5-14.5)
[2020-03-30 06:56] LABS: WBC 6.9 10x3/uL (4.8-10.8)
[2020-03-30 07:14] LABS: ANION GAP 9.2 mmol/L (8-16); CALCIUM 8.9 mg/dL (8.5-10.1); CARBON DIOXIDE 31.3 mmol/L (21.0-32.0); CREATININE - SERUM 1.6 mg/dL (0.6-1.3); MAGNESIUM - SERUM 1.9 mg/dL (1.8-2.4); PHOSPHOROUS 4.2 mg/dL (2.5-4.9); POTASSIUM - SERUM 4.5 mmol/L (3.5-5.1)
--- NOTE | 2020-03-30 07:15 | NUR ---
RECEIVED PT IN BED EYES CLOSED RESP UNLABORED ON BIPAP AT THIS TIME SKIN W/D COLOR WNL NAD NOTED
[2020-03-30 08:30] VITALS: BP 121/66
--- NOTE | 2020-03-30 09:32 | MORECARE ---
CASE MANAGEMENT DISCHARGE SUMMARY PATIENT: BABATUNDE ALDANA UNIT: [id number] ADM DATE: 03/11/20 AGE: 59 : 56 SEX: F ROOM/BED: D.4087 AUTHOR: FEDE,DOC PHYSICIAN: REFERRING PHYSICIAN: TERESA MERCADO MD DATE OF SERVICE: 03/30/20 Discharge Plan Patient Name: BABATUNDE ALDANA Facility: [facility]:[place] : 1960 Planned Disposition: Home Anticipated Discharge Date: Discharge Date: Expected LOS: 0 Initial Reviewer: [email or web address] Initial Review Date: 03/11/2020 Generated: 03/30/20 10:32 am Comments DCP- Discharge Planning Updated by [id number]: Allegra Montoya on 03/30/20 8:[address] Toby with [facility] called and states the company will deliver the Trilogy to the patient today. DCP- Discharge Planning Updated by [id number]: Allegra Montoya on 03/30/20 8:[address] Contacted Toby with [email or web address] #[phone] and Trilogy is approved and will be delivered upon DC. CM to contact [facility] for delivery of Trilogy. CM contacted "Shorty" Lc Aldana (son) @[phone] and requested that a portable O2 tank be brought when patient is DC'd home. Patient's son will drive her home. This son is who she lives with. DCP- Discharge Planning Updated by [id number]: Bri Garcia on 03/25/20 1:[address] triliogy has been approved through [facility], when discharged need to call them and they will come set up at home. Patient's POX was 78-81% on 4L, bipap placed on patient DCP- Discharge Planning Updated by [id number]: Bri Garcia on 03/24/20 1:[address] SPOKE WITH PATIENT AND SISTER AT LENGTH ABOUT NIV, NICHOLE WITH [facility] AND IMM EXPLAINED AND SIGNED. PATIENT STATES THAT HER DME HAS TRIED TO GET APPROVED WITHOUT SUCCESS. CM HAS SENT REFERRAL TO [place] WITH [facility] DCP- Discharge Planning Updated by [id number]: Antionette Mclaughlin on 03/22/20 5:[address] LATE ENTRY 03/20/[address] Noriega to see if patient needs trilogy or cpap at home. He stated no her 02 just drops when she is up moving around. We just need to wean the 02 down. CM will continue to follow and assist as needed with discharge planning / needs. DCP- Discharge Planning Updated by [id number]: Antionette Mclaughlin on 03/16/20 5:[address] Patient Name: BABATUNDE ALDANA Admission Status: ER Accout number: [id number] Admission Date: 03-11-2020 : 1960 Admission Diagnosis:ACUTE KIDNEY FAILURE, UNSPECIFIED Attending: SUDHEER Current LOS: 5 Anticipated DC Date: Planned Disposition: Home Primary Insurance: [facility] MEDICARE SOLUTIONS Discharge Planning Comments: CM met with patient to complete initial dc planning assessment. CM educated patient on the CM role and verbal consent given by patient to complete assessment. Patient lives at home with family. Patient is independent. At discharge patient plans to return home and feels this is a safe discharge. CM discussed availability of home health, rehab services, and medical equipment. Patient states that she has a nurse that visits once a month. Patient states that she has home / portable 02 and a nebulizer. Patient would like a 4 prong cane for being unsteady. NICHOLE signed no preference in [employer] company. Patient will have family to transport home. Patient denied known discharge needs at this time. CM will continue to follow and will assist as needed with dc plans/needs. Stretcher Leveler Operator Helper: Antionette Mclaughlin DCPIA - Discharge Planning Initial Assessment Updated by [id number]: Antionette Mclaughlin on 03/16/20 6:40 pm * Is the patient Alert and Oriented? Yes * How many steps to enter\\exit or inside your home? * PCP [facility] * Pharmacy [facility] * Preadmission Environment Home with Family * ADLs Independent * Equipment Nebulizer * Other Equipment HOME / PORTABLE 02 * List name and contact numbers for known caregivers / representatives who currently or will assist patient after discharge: OFELIA NIRALI - [phone], * Verbal permission to speak to the caregivers and representatives has been obtained from the patient. Yes * Additional services required to return to the preadmission environment? No * Can the patient safely return to the preadmission environment? Yes * Has this patient been hospitalized within the prior 30 days at any hospital? No Coverage Notice Reviewer: [id number] Lauren Mclaughlin Notice Issued Date-Time: 03/16/2020 18:45 Notice Type: Patient Choice Letter Notice Delivered To: Patient Relationship to Patient: Self Interior Assemblies Installer Name: Delivery Method: HAND - Hand Delivered Slime Days: Prior Verbal Notification: Recipient Understood Notice: Yes Recipient Signature: Yes Med Rec Note Co-signed by Attending: Coverage Notice Comment: no preference in DME Reviewer: [id number] Lauren Garcia Notice Issued Date-Time: 03/24/2020 14:25 Notice Type: IM Discharge Notice Notice Delivered To: Patient Relationship to Patient: Interior Assemblies Installer Name: Delivery Method: HAND - Hand Delivered Slime Days: Prior Verbal Notification: Recipient Understood Notice: Yes Recipient Signature: Yes Med Rec Note Co-signed by Attending: Coverage Notice Comment: Reviewer: [email or web address] Lauren Garcia Notice Issued Date-Time: 03/24/2020 14:25 Notice Type: Patient Choice Letter Notice Delivered To: Patient Relationship to Patient: Interior Assemblies Installer Name: Delivery Method: HAND - Hand Delivered Slime Days: Prior Verbal Notification: Recipient Understood Notice: Yes Recipient Signature: Yes Med Rec Note Co-signed by Attending: Coverage Notice Comment: NICHOLE Banegas DP export: 03/27/20 8:55 am Patient Name: BABATUNDE ALDANA Page [id number] at 0932 All edits/amendments must be made on the electronic document DICTATION DATE: 03/30/20931 FLIGHT READINESS TECHNICIAN: HEDY 03/30/20 0932 RPT#: [id number] DC DATE: STATUS: ADM IN [facility] [address] [place] [address] END OF REPORT
[2020-03-30 12:00] VITALS: BP 92/71
--- NOTE | 2020-03-30 14:50 | MORECARE ---
CASE MANAGEMENT DISCHARGE SUMMARY PATIENT: BABATUNDE ALDANA UNIT: [id number] ADM DATE: 03/11/20 AGE: 59 : 56 SEX: F ROOM/BED: D.1544 AUTHOR: FEDE,DOC PHYSICIAN: REFERRING PHYSICIAN: TERESA MERCADO MD DATE OF SERVICE: 03/30/20 Discharge Plan Patient Name: BABATUNDE ALDANA Facility: [facility]:[place] : 1960 Planned Disposition: Home Anticipated Discharge Date: Discharge Date: Expected LOS: 0 Initial Reviewer: [id number] Initial Review Date: 03/11/2020 Generated: 03/30/20 3:49 pm Comments DCP- Discharge Planning Updated by [id number]: Allegra Montoya on 03/30/20 1:[address] Contacted Toby with [employer] #[phone] and Trilogy is approved and will be delivered upon DC. CM to contact [facility] for delivery of Trilogy. CM contacted "Shorty" Lc Aldana (son) @[phone] and requested that a portable O2 tank be brought when patient is DC'd home. Patient's son will drive her home. DCP- Discharge Planning Updated by [email or web address]: Allegra Montoya on 03/30/20 8:[address] Toby with [employer] called and states the company will deliver the Trilogy to the patient today. DCP- Discharge Planning Updated by [id number]: Bri Garcia on 03/25/20 1:[address] triliogy has been approved through [facility], when discharged need to call them and they will come set up at home. Patient's POX was 78-81% on 4L, bipap placed on patient DCP- Discharge Planning Updated by [email or web address]: Bri Garcia on 03/24/20 1:[address] SPOKE WITH PATIENT AND SISTER AT LENGTH ABOUT NIV, NICHOEL WITH [facility] AND IMM EXPLAINED AND SIGNED. PATIENT STATES THAT HER DME HAS TRIED TO GET APPROVED WITHOUT SUCCESS. CM HAS SENT REFERRAL TO [place] WITH [facility] DCP- Discharge Planning Updated by [id number]: Antionette Mclaughlin on 03/22/20 5:[address] LATE ENTRY 03/20/[address] Noriega to see if patient needs trilogy or cpap at home. He stated no her 02 just drops when she is up moving around. We just need to wean the 02 down. CM will continue to follow and assist as needed with discharge planning / needs. DCP- Discharge Planning Updated by [email or web address]: Antionette Mclaughlin on 03/16/20 5:[address] Patient Name: BABATUNDE ALDANA Admission Status: ER Accout number: [id number] Admission Date: 03-11-2020 : 1960 Admission Diagnosis:ACUTE KIDNEY FAILURE, UNSPECIFIED Attending: SUDHEER Current LOS: 5 Anticipated DC Date: Planned Disposition: Home Primary Insurance: [facility] MEDICARE SOLUTIONS Discharge Planning Comments: CM met with patient to complete initial dc planning assessment. CM educated patient on the CM role and verbal consent given by patient to complete assessment. Patient lives at home with family. Patient is independent. At discharge patient plans to return home and feels this is a safe discharge. CM discussed availability of home health, rehab services, and medical equipment. Patient states that she has a nurse that visits once a month. Patient states that she has home / portable 02 and a nebulizer. Patient would like a 4 prong cane for being unsteady. NICHOLE signed no preference in [employer]. Patient will have family to transport home. Patient denied known discharge needs at this time. CM will continue to follow and will assist as needed with dc plans/needs. Car Mechanic Helper: Antionette Mclaughlin DCPIA - Discharge Planning Initial Assessment Updated by [id number]: Antionette Mclaughlin on 03/16/20 6:40 pm * Is the patient Alert and Oriented? Yes * How many steps to enter\\exit or inside your home? * [facility]CP [facility] * Pharmacy [facility] * Preadmission Environment Home with Family * ADLs Independent * Equipment Nebulizer * Other Equipment HOME / PORTABLE 02 * List name and contact numbers for known caregivers / representatives who currently or will assist patient after discharge: OFELIA ALDANA - [phone], * Verbal permission to speak to the caregivers and representatives has been obtained from the patient. Yes * Additional services required to return to the preadmission environment? No * Can the patient safely return to the preadmission environment? Yes * Has this patient been hospitalized within the prior 30 days at any hospital? No Coverage Notice Reviewer: [id number] Lauren Mclaughlin Notice Issued Date-Time: 03/16/2020 18:45 Notice Type: Patient Choice Letter Notice Delivered To: Patient Relationship to Patient: Self Dry Molder Name: Delivery Method: HAND - Hand Delivered Slime Days: Prior Verbal Notification: Recipient Understood Notice: Yes Recipient Signature: Yes Med Rec Note Co-signed by Attending: Coverage Notice Comment: no preference in DME Reviewer: [id number] Lauren Garcia Notice Issued Date-Time: 03/24/2020 14:25 Notice Type: IM Discharge Notice Notice Delivered To: Patient Relationship to Patient: Dry Molder Name: Delivery Method: HAND - Hand Delivered Slime Days: Prior Verbal Notification: Recipient Understood Notice: Yes Recipient Signature: Yes Med Rec Note Co-signed by Attending: Coverage Notice Comment: Reviewer: [id number] Lauren Garcia Notice Issued Date-Time: 03/24/2020 14:25 Notice Type: Patient Choice Letter Notice Delivered To: Patient Relationship to Patient: Dry Molder Name: Delivery Method: HAND - Hand Delivered Slime Days: Prior Verbal Notification: Recipient Understood Notice: Yes Recipient Signature: Yes Med Rec Note Co-signed by Attending: Coverage Notice Comment: NICHOLE VILLASENOR Last DP export: 03/30/20 8:32 am Patient Name: BABATUNDE ALDANA Page [id number] at 1450 All edits/amendments must be made on the electronic document DICTATION DATE: 03/30/201448 REFRIGERATION INSULATOR: HEDY 03/30/20 1449 RPT#: [id number] DC DATE: STATUS: ADM IN [facility] [address] [place] [address] END OF REPORT
--- NOTE | 2020-03-30 15:39 | MORECARE ---
CASE MANAGEMENT DISCHARGE SUMMARY PATIENT: BABATUNDE ALDANA UNIT: [id number] ADM DATE: 03/11/20 AGE: 59 : 56 SEX: F ROOM/BED: D.7415 AUTHOR: FEDE,DOC PHYSICIAN: REFERRING PHYSICIAN: TERESA MERCADO MD DATE OF SERVICE: 03/30/20 Discharge Plan Patient Name: BABATUNDE ALDANA Facility: [facility]:[place] : 1960 Planned Disposition: Home Anticipated Discharge Date: Discharge Date: Expected LOS: 0 Initial Reviewer: [email or web address] Initial Review Date: 03/11/2020 Generated: 03/30/20 4:38 pm Comments DCP- Discharge Planning Updated by [email or web address]: Allegra Montoya on 03/30/20 2:36 pm JERAD Luis with [employer] called and states the company will deliver the Trilogy to the patient today. CM contacted [facility], spoke with Bri and request a quad cane for home use. Per Drea, she will need an order, and the family can come by and pick it up. Order faxed to [phone]. CM notified patient of the need for family to go by and picker packer the cane. Patient now states she has a HH nurse that comes by 1X/month to check on her medications and so blood work. CM has requested the name of the agency, but patient does not remember. CM has faxed the order for the Quad cane to [facility]. DCP- Discharge Planning Updated by [id number]: Allegra Montoya on 03/30/20 1:[address] Contacted Toby with [employer] #[phone] and Trilogy is approved and will be delivered upon DC. CM to contact [employer] for delivery of Trilogy. CM contacted "Shorty" Lc Aldana (son) @[phone] and requested that a portable O2 tank be brought when patient is DC'd home. Patient's son will drive her home. DCP- Discharge Planning Updated by [id number]: Bri Garcia on 03/25/20 1:[address] triliogy has been approved through [facility] [employer], when discharged need to call them and they will come set up at home. Patient's POX was 78-81% on 4L, bipap placed on patient DCP- Discharge Planning Updated by [email or web address]: Bri Garcia on 03/24/20 1:[address] SPOKE WITH PATIENT AND SISTER AT LENGTH ABOUT NIV, NICHOLE WITH [employer] AND IMM EXPLAINED AND SIGNED. PATIENT STATES THAT HER DME HAS TRIED TO GET APPROVED WITHOUT SUCCESS. CM HAS SENT REFERRAL TO [facility] WITH [facility] DCP- Discharge Planning Updated by [email or web address]: Antionette Mclaughlin on 03/22/20 5:[address] LATE ENTRY 03/20/[address] Noriega to see if patient needs trilogy or cpap at home. He stated no her 02 just drops when she is up moving around. We just need to wean the 02 down. CM will continue to follow and assist as needed with discharge planning / needs. DCP- Discharge Planning Updated by [email or web address]: Antionette Mclaughlin on 03/16/20 5:[address] Patient Name: BABATUNDE ALDANA Admission Status: ER Accout number: [id number] Admission Date: 03-11-2020 : 1960 Admission Diagnosis:ACUTE KIDNEY FAILURE, UNSPECIFIED Attending: SUDHEER Current LOS: 5 Anticipated DC Date: Planned Disposition: Home Primary Insurance: [facility] MEDICARE SOLUTIONS Discharge Planning Comments: CM met with patient to complete initial dc planning assessment. CM educated patient on the CM role and verbal consent given by patient to complete assessment. Patient lives at home with family. Patient is independent. At discharge patient plans to return home and feels this is a safe discharge. CM discussed availability of home health, rehab services, and medical equipment. Patient states that she has a nurse that visits once a month. Patient states that she has home / portable 02 and a nebulizer. Patient would like a 4 prong cane for being unsteady. NICHOLE signed no preference in DME company. Patient will have family to transport home. Patient denied known discharge needs at this time. CM will continue to follow and will assist as needed with dc plans/needs. Rug Cleaner: Antionette Mclaughlin DCPIA - Discharge Planning Initial Assessment Updated by [email or web address]: Antionette Mclaughlin on 03/16/20 6:40 pm * Is the patient Alert and Oriented? Yes * How many steps to enter\\exit or inside your home? * PCP [facility] * Pharmacy [facility] * Preadmission Environment Home with Family * ADLs Independent * Equipment Nebulizer * Other Equipment HOME / PORTABLE 02 * List name and contact numbers for known caregivers / representatives who currently or will assist patient after discharge: OFELIA ALDANA - [phone], * Verbal permission to speak to the caregivers and representatives has been obtained from the patient. Yes * Additional services required to return to the preadmission environment? No * Can the patient safely return to the preadmission environment? Yes * Has this patient been hospitalized within the prior 30 days at any hospital? No Coverage Notice Reviewer: [id number] Lauren Mclaughlin Notice Issued Date-Time: 03/16/2020 18:45 Notice Type: Patient Choice Letter Notice Delivered To: Patient Relationship to Patient: Self Digital Court Reporter Name: Delivery Method: HAND - Hand Delivered Slime Days: Prior Verbal Notification: Recipient Understood Notice: Yes Recipient Signature: Yes Med Rec Note Co-signed by Attending: Coverage Notice Comment: no preference in DME Reviewer: [id number] Lauren Garcia Notice Issued Date-Time: 03/24/2020 14:25 Notice Type: IM Discharge Notice Notice Delivered To: Patient Relationship to Patient: Digital Court Reporter Name: Delivery Method: HAND - Hand Delivered Slime Days: Prior Verbal Notification: Recipient Understood Notice: Yes Recipient Signature: Yes Med Rec Note Co-signed by Attending: Coverage Notice Comment: Reviewer: [id number] Lauren Garcia Notice Issued Date-Time: 03/24/2020 14:25 Notice Type: Patient Choice Letter Notice Delivered To: Patient Relationship to Patient: Digital Court Reporter Name: Delivery Method: HAND - Hand Delivered Slime Days: Prior Verbal Notification: Recipient Understood Notice: Yes Recipient Signature: Yes Med Rec Note Co-signed by Attending: Coverage Notice Comment: [facility] Last DP export: 03/30/20 1:50 pm Patient Name: BABATUNDE ALDANA Page [phone] at 1539 All edits/amendments must be made on the electronic document DICTATION DATE: 03/30/20 1538 WINDOW GLASS CUTTER OFF: HEDY 03/30/20 1538 RPT#: [id number] DC DATE: STATUS: ADM IN [facility] [address] [place] [address] END OF REPORT
[2020-03-30 16:50] VITALS: BP 101/63
--- NOTE | 2020-03-30 19:48 | NUR ---
REPORT RECIEVED AND ROUNDING COMPLETE. PATIENT LAYING IN BED IN LOW FOWLERS, WEARING NASAL CANNULA HIGH FLOW WITH O2 AT 5L, BIPAP AT BEDSIDE TO BE WORN AT NIGHT/BEDTIME. RIGHT WRIST PIV IS SALINE LOCKED. PATIENT REQUESTED PAIN MEDS WITH BEDTIME MEDICATIONS. PATIENT IS A&O X4. NO DISTRESSED NOTED, CALL LIGHT WTHIN REACH AND BED IN LOWEST LOCKED POSITION.
[2020-03-30 20:00] VITALS: BP 108/65
[2020-03-31] VITALS: BP 100/57
[2020-03-31 04:00] VITALS: BP 102/61
[2020-03-31 06:48] LABS: BASOPHILS 0.1 % (0-2); EOSINOPHILS 3.3 % (0-7); HEMATOCRIT 35.5 % (36.0-48.0); HEMOGLOBIN 10.4 g/dL (12-16); IMMATURE GRANULOCYTES 0.1 % (0-5); LYMPHOCYTES 17.9 % (15-50); MCH 25.7 pg (26.0-34.0); MCHC 29.3 g/dL (31.0-37.0); MCV 87.9 fL (80.0-100.0); MEAN PLATELET VOLUME 10.6 fL (7.4-10.4); MONOCYTES 7.2 % (2-11); NEUTROPHILS 71.4 % (40-80); RBC 4.04 10x6/uL (4.00-5.40); RDW 15.6 % (11.5-14.5)
[2020-03-31 06:49] LABS: PLATELET COUNT 235 10x3/uL (130-400); WBC 8.8 10x3/uL (4.8-10.8)
[2020-03-31 06:59] LABS: ANION GAP 9.3 mmol/L (8-16); CALCIUM 8.8 mg/dL (8.5-10.1); CARBON DIOXIDE 31.3 mmol/L (21.0-32.0); CREATININE - SERUM 1.9 mg/dL (0.6-1.3); POTASSIUM - SERUM 4.6 mmol/L (3.5-5.1)
[2020-03-31 09:00] VITALS: BP 107/62
[2020-03-31 11:00] VITALS: BP 95/60
[2020-03-31] MEDS ORDERED: FEXOFENADINE HC60 MG PO (11:39)
[2020-03-31] MEDS ORDERED: TOPROL XL25 MG PO (11:48)
[2020-03-31] MEDS ORDERED: ALDACTONE25 MG PO (11:48)
[2020-03-31] MEDS ORDERED: CARDIZEM CD180 MG PO (11:48)
--- NOTE | 2020-03-31 12:37 | NUR ---
Nutrition Follow-up: Pt reports good appetite and states that she ate the majority of her breakfast this AM. Denies N/V/C/D, chewing/swallowing difficulties. Noted plans to d/c today. Diet: Renal ADA PO intake: 78% avg x 6 meals Wt: 144.6# (03/25); 149# (03/11) Last BM: 03/30 Labs noted: Na 135 Meds noted: Lasix, Pepcid, Zofran, electrolyte protocol -Encourage PO intake and honor food preferences within diet restrictions. -Monitor wt. -RD following.
--- NOTE | 2020-03-31 16:30 | NUR ---
IV AND TELEMETRY DCD. DC PLANS GIVEN. UNDERSTANDING VOICED. ESCORTED TO CAR BY W/C.
--- NOTE | 2020-04-01 08:59 | MORECARE ---
CASE MANAGEMENT DISCHARGE SUMMARY PATIENT: BABATUNDE ALDANA UNIT: [id number] ADM DATE: 03/11/20 AGE: 59 : 56 SEX: F ROOM/BED: D.5740 AUTHOR: FEDE,DOC PHYSICIAN: REFERRING PHYSICIAN: TERESA MERCADO MD DATE OF SERVICE: 04/01/20 Discharge Plan Patient Name: BABATUNDE ALDANA Facility: [facility]:[place] : 1960 Planned Disposition: Home Anticipated Discharge Date: Discharge Date: 03/31/2020 Expected LOS: 0 Initial Reviewer: [id number] Initial Review Date: 03/11/2020 Generated: 04/01/20 9:58 am DCP- Discharge Planning Updated by [email or web address]: Allegra Montoya on 03/30/20 2:[address] Toby with [employer] called and states the company will deliver the Trilogy to the patient today. CM contacted [facility], spoke with Bri and request a quad cane for home use. Per Drea, she will need an order, and the family can come by and pick it up. Order faxed to [phone]. CM notified patient of the need for family to go by and miner pick the cane. Patient now states she has a HH nurse that comes by 1X/month to check on her medications and so blood work. CM has requested the name of the agency, but patient does not remember. CM has faxed the order for the Quad cane to [facility]. DCP- Discharge Planning Updated by [id number]: Allegra Montoya on 03/30/20 1:[address] Contacted Toby with [employer] #[phone] and Trilogy is approved and will be delivered upon DC. CM to contact [facility] for delivery of Trilogy. CM contacted "Shorty" Lc Aldana (son) @[phone] and requested that a portable O2 tank be brought when patient is DC'd home. Patient's son will drive her home. DCP- Discharge Planning Updated by [id number]: Bri Garcia on 03/25/20 1:[address] triliogy has been approved through [facility], when discharged need to call them and they will come set up at home. Patient's POX was 78-81% on 4L, bipap placed on patient DCP- Discharge Planning Updated by [email or web address]: Bri Garcia on 03/24/20 1:[address] SPOKE WITH PATIENT AND SISTER AT LENGTH ABOUT NIV, NICHOLE WITH [facility] AND IMM EXPLAINED AND SIGNED. PATIENT STATES THAT HER DME HAS TRIED TO GET APPROVED WITHOUT SUCCESS. CM HAS SENT REFERRAL TO [place] WITH [facility] DCP- Discharge Planning Updated by [email or web address]: Antionette Mclaughlin on 03/22/20 5:[address] LATE ENTRY 03/20/[address] Noriega to see if patient needs trilogy or cpap at home. He stated no her 02 just drops when she is up moving around. We just need to wean the 02 down. CM will continue to follow and assist as needed with discharge planning / needs. DCP- Discharge Planning Updated by [id number]: Antionette Mclaughlin on 03/16/20 5:[address] Patient Name: BABATUNDE ALDANA Admission Status: ER Accout number: [id number] Admission Date: 03-11-2020 : 1960 Admission Diagnosis:ACUTE KIDNEY FAILURE, UNSPECIFIED Attending: SUDHEER Current LOS: 5 Anticipated DC Date: Planned Disposition: Home Primary Insurance: [facility] MEDICARE SOLUTIONS Discharge Planning Comments: CM met with patient to complete initial dc planning assessment. CM educated patient on the CM role and verbal consent given by patient to complete assessment. Patient lives at home with family. Patient is independent. At discharge patient plans to return home and feels this is a safe discharge. CM discussed availability of home health, rehab services, and medical equipment. Patient states that she has a nurse that visits once a month. Patient states that she has home / portable 02 and a nebulizer. Patient would like a 4 prong cane for being unsteady. NICHOLE signed no preference in DME company. Patient will have family to transport home. Patient denied known discharge needs at this time. CM will continue to follow and will assist as needed with dc plans/needs. Payroll Administrator: Antionette Mclaughlin DCPIA - Discharge Planning Initial Assessment Updated by [email or web address]: Antionette Mclaughlin on 03/16/20 6:40 pm * Is the patient Alert and Oriented? Yes * How many steps to enter\\exit or inside your home? * PCP [facility] * Pharmacy [facility] * Preadmission Environment Home with Family * ADLs Independent * Equipment Nebulizer * Other Equipment HOME / PORTABLE 02 * List name and contact numbers for known caregivers / representatives who currently or will assist patient after discharge: OFELIA ALDANA - [phone], * Verbal permission to speak to the caregivers and representatives has been obtained from the patient. Yes * Additional services required to return to the preadmission environment? No * Can the patient safely return to the preadmission environment? Yes * Has this patient been hospitalized within the prior 30 days at any hospital? No Coverage Notice Reviewer: [id number] Lauren Mclaughlin Notice Issued Date-Time: 03/16/2020 18:45 Notice Type: Patient Choice Letter Notice Delivered To: Patient Relationship to Patient: Self Distribution Supervisor Name: Delivery Method: HAND - Hand Delivered Slime Days: Prior Verbal Notification: Recipient Understood Notice: Yes Recipient Signature: Yes Med Rec Note Co-signed by Attending: Coverage Notice Comment: no preference in DME Reviewer: [id number] Lauren Garcia Notice Issued Date-Time: 03/24/2020 14:25 Notice Type: IM Discharge Notice Notice Delivered To: Patient Relationship to Patient: Distribution Supervisor Name: Delivery Method: HAND - Hand Delivered Slime Days: Prior Verbal Notification: Recipient Understood Notice: Yes Recipient Signature: Yes Med Rec Note Co-signed by Attending: Coverage Notice Comment: Reviewer: [id number] Lauren Garcia Notice Issued Date-Time: 03/24/2020 14:25 Notice Type: Patient Choice Letter Notice Delivered To: Patient Relationship to Patient: Distribution Supervisor Name: Delivery Method: HAND - Hand Delivered Slime Days: Prior Verbal Notification: Recipient Understood Notice: Yes Recipient Signature: Yes Med Rec Note Co-signed by Attending: Coverage Notice Comment: NICHOLE [facility] MED Last DP export: 03/30/20 2:39 pm Patient Name: BABATUNDE ALDANA Page 80011 at 0859 All edits/amendments must be made on the electronic document DICTATION DATE: 04/01/20858 ADVISOR ADVOCATE ANGEL CO FOUNDER: HEDY 04/01/20858 RPT#: [id number] DC DATE:03/31/20 STATUS: DIS IN [facility] [address] [place] [address] END OF REPORT
== END 2020-03-31 16:58 | disposition home health service (06) | DRG 682 ==
LOC: D.ER 10:40 → D.ICU 13:12 → D.MS 03-20 11:07 → D.M2 03-25 16:34
PROVIDERS: Family Medicine; Internal Medicine; Internal Medicine Pulmonary Disease; ADMIT Family Medicine; ATTEND Family Medicine
DX: N17.9 Acute kidney failure, unspecified (principal); J96.21 Acute and chronic respiratory failure with hypoxia; J96.02 Acute respiratory failure with hypercapnia; I50.21 Acute systolic (congestive) heart failure; E87.1 Hypo-osmolality and hyponatremia; I13.0 Hypertensive heart and chronic kidney disease with heart failure and stage 1 through stage 4 chronic kidney disease, or unspecified chronic kidney disease; E87.5 Hyperkalemia; E11.65 Type 2 diabetes mellitus with hyperglycemia; D64.9 Anemia, unspecified; I49.1 Atrial premature depolarization; G89.29 Other chronic pain; J44.9 Chronic obstructive pulmonary disease, unspecified; I27.20 Pulmonary hypertension, unspecified; R53.81 Other malaise; N18.3 Chronic kidney disease, stage 3 (moderate); I48.91 Unspecified atrial fibrillation

== ENCOUNTER 2020-05-21 18:48 | Inpatient (IN) | payer MEDICARE ==
[~2020-05-21] VITALS: Ht 165.1 cm; Wt 62.8 kg
[~2020-05-21 18:48] MED LIST: ALDACTONE25 MG PO; ALTACE1.25 MG PO; BREO ELLIPTA 11 EACH INH; CARDIZEM CD180 MG PO; CYCLOBENZAPRINE10 MG PO; DILT-XR240 MG PO; ELIQUIS2.5 MG PO; FERROUS SULFAT325 MG PO; FEXOFENADINE HC60 MG PO; GLUCOPHAGE500 MG PO; HYDROCODON-ACE1 EAC2 PO; IPRAT-ALBUT 0.5-3 ML UPD; LANOXIN125 MCG PO; LASIX40 MG PO; LOMOTIL 2.5-0.1 EAC1 PO; MAG-OX 400 MG400 MG PO; PROTONIX40 MG PO; TOPROL XL25 MG PO; VIAGRA25 MG PO; ZOFRAN8 MG PO
--- NOTE | 2020-05-21 18:58 | NUR ---
placed on NRB 91 SPO2
--- NOTE | 2020-05-21 19:15 | NUR ---
PT ASSISTED ON TO BEDPAN AT THIS TIME. URINE SAMPLE SENT TO LAB.
[2020-05-21 19:30] VITALS: BP 138/88
[2020-05-21 19:50] LABS: BILIRUBIN NEGATIVE (NEGATIVE); KETONE NEGATIVE (NEGATIVE); NITRITE NEGATIVE (NEGATIVE); UROBILINOGEN NORMAL (NORMAL)
[2020-05-21 20:15] VITALS: BP 147/88
[2020-05-21 20:34] LABS: ALBUMIN 4.1 g/dL (3.4-5.0); BILIRUBIN - TOTAL 0.74 mg/dL (0.2-1.3); C-REACTIVE PROTEIN 1.4 mg/dL (0.0-0.9); CALCIUM 9.1 mg/dL (8.5-10.1); CARBON DIOXIDE 30.3 mmol/L (21.0-32.0); MAGNESIUM - SERUM 3.3 mg/dL (1.8-2.4); PROTEIN - SERUM 7.6 g/dL (6.4-8.2); THYROID STIMULATING HORMONE 0.29 uIU/mL (0.36-3.74)
[2020-05-21 20:47] LABS: ANION GAP 14.4 mmol/L (8-16); TROPONIN-I 0.092 ng/mL (0.000-0.060)
--- NOTE | 2020-05-21 20:48 | NUR ---
SPOKE WITH KELVIN AT [facility], NO BED AVAILABLE FOR PT.
[2020-05-21 20:49] LABS: POTASSIUM - SERUM 6.7 mmol/L (3.5-5.1)
--- NOTE | 2020-05-21 21:25 | NUR ---
CLOTHING PATTERN PREPARER AT BEDSIDE AT THIS TIME.
[2020-05-21 21:27] VITALS: BP 144/83
[2020-05-21 23:33] LABS: HEMATOCRIT 47.9 % (36.0-48.0); HEMOGLOBIN 14.3 g/dL (12-16); LYMPHOCYTES 6.1 % (15-50); MCH 27.5 pg (26.0-34.0); MCHC 29.9 g/dL (31.0-37.0); MCV 92.1 fL (80.0-100.0); PLATELET COUNT 241 10x3/uL (130-400); WBC 7.6 10x3/uL (4.8-10.8)
--- NOTE | 2020-05-21 23:51 | NUR ---
Recieved pt from the ER, no acute distress noted. Pt was on a non-rebreather and was placed on Bipap once in her bed in ICU. See RT notes for settings. Pt appeared lethargic but was able to respond. Assessment per flow sheet, call light in reach, bed in low position.
[2020-05-22] VITALS (25 sets, daily range): BP systolic 102–149; BP diastolic 68–112; Ht 165.1 cm; Wt 62.8 kg
[2020-05-22 00:34] LABS: CKMB 2.1 U/L (0.0-3.6); CREATINE KINASE 48 UL (21-215); PRO BNP 25833 pg/mL (0-125)
[2020-05-22 00:39] LABS: POTASSIUM - SERUM 6.3 mmol/L (3.5-5.1)
[2020-05-22 05:06] LABS: BASOPHILS 0 % (0-2); EOSINOPHILS 0 % (0-7); HEMATOCRIT 47.1 % (36.0-48.0); HEMOGLOBIN 14.2 g/dL (12-16); IMMATURE GRANULOCYTES 0.5 % (0-5); LYMPHOCYTES 13.1 % (15-50); MCH 27.4 pg (26.0-34.0); MCHC 30.1 g/dL (31.0-37.0); MCV 90.9 fL (80.0-100.0); MEAN PLATELET VOLUME 9.9 fL (7.4-10.4); MONOCYTES 8.1 % (2-11); NEUTROPHILS 78.3 % (40-80); PLATELET COUNT 208 10x3/uL (130-400); RBC 5.18 10x6/uL (4.00-5.40); WBC 8.1 10x3/uL (4.8-10.8)
[2020-05-22 05:14] LABS: APTT 35.7 SECONDS (22.8-39.4); INR 1.77 (0.85-1.17); PROTIME 20.4 SECONDS (11.6-15.0)
[2020-05-22 05:42] LABS: ALKALINE PHOSPHATASE 60 U/L (30-120); ALT (SGPT) 793 U/L (10-68); BILIRUBIN - TOTAL 0.86 mg/dL (0.2-1.3); CALC OSMOLALITY 298 mosm/kg (275-300); CARBON DIOXIDE 27.3 mmol/L (21.0-32.0); CHLORIDE - SERUM 99 mmol/L (98-107); CKMB 2.2 U/L (0.0-3.6); CREATINE KINASE 38 UL (21-215); CREATININE - SERUM 3.2 mg/dL (0.6-1.3); GLUCOSE 117 mg/dL (74-106); MAGNESIUM - SERUM 3.1 mg/dL (1.8-2.4); PHOSPHOROUS 5.3 mg/dL (2.5-4.9); POTASSIUM - SERUM 5.9 mmol/L (3.5-5.1); PROTEIN - SERUM 7.5 g/dL (6.4-8.2); SODIUM 134 mmol/L (136-145); UREA NITROGEN 97 mg/dL (7-18); eGFR NON AFRICAN AMERICAN 16 mL/min (90-120)
[2020-05-22 06:03] LABS: PRO BNP 32192 pg/mL (0-125)
[2020-05-22 06:04] LABS: TROPONIN-I 0.112 ng/mL (0.000-0.060)
--- NOTE | 2020-05-22 09:00 | NUR ---
TALKED TO DAUGHTER ANABELLA. UPDATE GIVEN. WILL HAVE RENAL CALL PATIENT.
--- NOTE | 2020-05-22 10:00 | NUR ---
DR TESFAYE CALLED ANABELLA THE DAUGHTER. UPDATE GIVEN. ALL QUESTIONS ANSWERED.
--- NOTE | 2020-05-22 12:00 | NUR ---
UPDATE GIVEN TO DAUGHTER. VOICES NO QUESTIONS.
[2020-05-22 12:05] LABS: CKMB 2.7 U/L (0.0-3.6); CREATINE KINASE 44 UL (21-215); TROPONIN-I 0.152 ng/mL (0.000-0.060)
--- NOTE | 2020-05-22 16:00 | NUR ---
UPDATE GIVEN TO DAUGHTER.
[2020-05-22 16:11] LABS: ANION GAP 11.8 mmol/L (8-16); CALCIUM 9.3 mg/dL (8.5-10.1); CARBON DIOXIDE 33.5 mmol/L (21.0-32.0); POTASSIUM - SERUM 5.3 mmol/L (3.5-5.1)
[2020-05-22 16:26] LABS: CREATININE - SERUM 2.3 mg/dL (0.6-1.3)
[2020-05-23] VITALS (24 sets, daily range): BP systolic 106–137; BP diastolic 69–97
[2020-05-23 03:59] LABS: BASOPHILS 0 % (0-2); EOSINOPHILS 0.4 % (0-7); HEMATOCRIT 48.2 % (36.0-48.0); HEMOGLOBIN 14.3 g/dL (12-16); IMMATURE GRANULOCYTES 0.1 % (0-5); LYMPHOCYTES 13.9 % (15-50); MCH 27.2 pg (26.0-34.0); MCHC 29.7 g/dL (31.0-37.0); MCV 91.8 fL (80.0-100.0); MONOCYTES 4.1 % (2-11); NEUTROPHILS 81.5 % (40-80); PLATELET COUNT 210 10x3/uL (130-400); RBC 5.25 10x6/uL (4.00-5.40); RDW 18.9 % (11.5-14.5); WBC 8.3 10x3/uL (4.8-10.8)
[2020-05-23 04:39] LABS: ALBUMIN 3.5 g/dL (3.4-5.0); BILIRUBIN - TOTAL 1.25 mg/dL (0.2-1.3); C-REACTIVE PROTEIN 1.6 mg/dL (0.0-0.9); CARBON DIOXIDE 34.3 mmol/L (21.0-32.0); CREATININE - SERUM 2.1 mg/dL (0.6-1.3); MAGNESIUM - SERUM 2.4 mg/dL (1.8-2.4); POTASSIUM - SERUM 5.3 mmol/L (3.5-5.1)
[2020-05-23 04:43] LABS: PHOSPHOROUS 3.8 mg/dL (2.5-4.9)
--- NOTE | 2020-05-23 05:55 | NUR ---
DR WHITMORE CALLED, UPDATED REGARDING PT, ORDERS RECEIVED.
--- NOTE | 2020-05-23 08:02 | NUR ---
SPOKE WITH PTS , COLTON PROVIDED.
--- NOTE | 2020-05-23 09:00 | NUR ---
ASSISTED PT WITH BREAKFAST. PT DRANK 240 ML OF APPLE JUICE WELL WATER. PT DID NOT WANT TO EAT EGGS, CHINCHILLA, OR BISCUIT. VSS. NO ACUTE DISTRESS NOTED. WILL CONTINUE PLAN OF CARE.
--- NOTE | 2020-05-23 10:02 | NUR ---
PER ОЛЬГА RUSSELL DURING DAY TOLERATED AND BIPAP PRN AND QHS.
--- NOTE | 2020-05-23 11:03 | NUR ---
CONTINENT BOWEL MOVEMENT NOTED AT THIS TIME. JAKUB CARE PROVIDED AND DRIVER CARE PROVIDED. BM SMALL, FORMED, GREEN/BROWN. VSS. NO ACUTE DISTRESS NOTED. WILL CONTINUE PLAN OF CARE.
--- NOTE | 2020-05-23 11:48 | NUR ---
PHYSICAL THERAPY CONSULT ORDERED PER DR FLORES.
[2020-05-23 15:19] LABS: ANION GAP 9.2 mmol/L (8-16); CALCIUM 9.2 mg/dL (8.5-10.1); CARBON DIOXIDE 35.5 mmol/L (21.0-32.0); CREATININE - SERUM 1.9 mg/dL (0.6-1.3); POTASSIUM - SERUM 4.7 mmol/L (3.5-5.1)
--- NOTE | 2020-05-23 16:06 | NUR ---
RT HAND IV NOTED LEAKING, NO LONGER PATENT, DCD CATHETER TIP INTACT. NEW IV PLACED RT FOREARM, 20G. FLUSHES WELL. VSS. NO ACUTE DISTRESS NOTED. WILL CONTINUE PLAN OF CARE.
--- NOTE | 2020-05-23 16:22 | NUR ---
PT C/O STOMACH DISFOMFORT AND REQUESTS FOR SOMETHING TO HELP RELIEVE IT. PER DR FLORES, ADMIN THE PRN TYLENOL. ALSO NOTIFIED PHYSICIAN THAT PTS HEART RATE TRENDING AROUND 101 UP TO 133 WITH SBP IN 130S. PHYSICIAN STATED TO SEE IF THE TYLENOL HELPS ANY, AND IF NOT THEN CAN START METOPROLOL 2.5MG IV Q8HRS FOR HEART RATE OVER [address]. [address] ORDERS. WILL CONTINUE PLAN OF CARE.
--- NOTE | 2020-05-23 17:21 | NUR ---
PT JUST FINISHED SPEAKING ON PHONE WITH HER DAUGHTER. STATED HER STOMACH WAS FEELING BETTER FROM THE TYLENOL. ALSO STATED SHE FEELS SLEEPY NOW AND WOULD LIKE TO TAKE A NAP. BIPAP PLACED. NO ACUTE DISTRESS NOTED. WILL CONTINUE PLAN OF CARE.
[2020-05-24] VITALS (24 sets, daily range): BP systolic 88–122; BP diastolic 69–93
[2020-05-24 04:17] LABS: BASOPHILS 0 % (0-2); EOSINOPHILS 1.1 % (0-7); HEMATOCRIT 50.2 % (36.0-48.0); HEMOGLOBIN 14.7 g/dL (12-16); IMMATURE GRANULOCYTES 0.3 % (0-5); LYMPHOCYTES 9.8 % (15-50); MCH 27.3 pg (26.0-34.0); MCHC 29.3 g/dL (31.0-37.0); MCV 93.1 fL (80.0-100.0); MEAN PLATELET VOLUME 10.1 fL (7.4-10.4); MONOCYTES 13.6 % (2-11); NEUTROPHILS 75.2 % (40-80); PLATELET COUNT 220 10x3/uL (130-400); RBC 5.39 10x6/uL (4.00-5.40); RDW 18.8 % (11.5-14.5); WBC 7.9 10x3/uL (4.8-10.8)
[2020-05-24 04:28] LABS: ALBUMIN 3.4 g/dL (3.4-5.0); ANION GAP 8.8 mmol/L (8-16); BILIRUBIN - TOTAL 1.33 mg/dL (0.2-1.3); CALCIUM 8.9 mg/dL (8.5-10.1); CARBON DIOXIDE 33.9 mmol/L (21.0-32.0); CREATININE - SERUM 1.8 mg/dL (0.6-1.3); MAGNESIUM - SERUM 2.2 mg/dL (1.8-2.4); PHOSPHOROUS 3.3 mg/dL (2.5-4.9); POTASSIUM - SERUM 4.7 mmol/L (3.5-5.1); PROTEIN - SERUM 6.8 g/dL (6.4-8.2)
--- NOTE | 2020-05-24 07:54 | NUR ---
LYING IN BED WHEN NURSE WALKED INTO ROOM, PTS LYING IN BED ON BIPAP. RESPIRATIONS STEADY AND UNLABORED, AWAKENS EASILY WHEN SPOKEN TO. PT WOKE UP ALERT AND ORIENTED. DENIES ANY NEEDS. BED ALARM ON. CALL LIGHT IN REACH. WILL CONTINUE PLAN OF CARE.
--- NOTE | 2020-05-24 13:12 | NUR ---
INCONTINENT BOWEL MOVEMENT NOTED AT THIS TIME. TOTAL LINEN CHANGE PROVIDED. CHG BATH PROVIDED. VSS. NO ACUTE DISTRESS NOTED. WILL CONTINUE PLAN OF CARE.
--- NOTE | 2020-05-24 14:49 | NUR ---
PT TALKING ON PHONE WITH FAMILT AT THIS TIME. VSS. NO ACUTE DISTRESS NOTD. WILL CONTINUE PLAN OF CARE.
--- NOTE | 2020-05-24 17:13 | NUR ---
LYING IN BED RESTING AT THIS TIME WITH EYES CLOSED. VSS. NO ACUTE DISTRESS NOTED. RESPIRATIONS STEADY AND UNLABORED. AWAKENS EASILY WHEN SPOKEN TO. OFFERED SUPPER TRAY TO PT, SHE STATED SHE MIGHT EAT LATER, BUT WANTED TO SLEEP RIGHT NOW. CALL LIGHT IN REACH. WILL CONTINUE PLAN OF CARE.
[2020-05-24 18:04] LABS: BILIRUBIN NEGATIVE (NEGATIVE); KETONE NEGATIVE (NEGATIVE); NITRITE NEGATIVE (NEGATIVE); UROBILINOGEN NORMAL (NORMAL)
[2020-05-25] VITALS (15 sets, daily range): BP systolic 85–121; BP diastolic 60–90
[2020-05-25 04:52] LABS: BASOPHILS 0.2 % (0-2); EOSINOPHILS 2.6 % (0-7); IMMATURE GRANULOCYTES 0.2 % (0-5); LYMPHOCYTES 14.9 % (15-50); MCH 27.7 pg (26.0-34.0); MCHC 30.2 g/dL (31.0-37.0); MCV 91.7 fL (80.0-100.0); MEAN PLATELET VOLUME 10.2 fL (7.4-10.4); MONOCYTES 14.4 % (2-11); NEUTROPHILS 67.7 % (40-80); PLATELET COUNT 195 10x3/uL (130-400); RBC 5.78 10x6/uL (4.00-5.40); RDW 18.5 % (11.5-14.5); WBC 6.4 10x3/uL (4.8-10.8)
[2020-05-25 05:27] LABS: ALBUMIN 3.4 g/dL (3.4-5.0); ANION GAP 9.6 mmol/L (8-16); BILIRUBIN - TOTAL 1.27 mg/dL (0.2-1.3); CALCIUM 8.7 mg/dL (8.5-10.1); CARBON DIOXIDE 33.8 mmol/L (21.0-32.0); CREATININE - SERUM 1.7 mg/dL (0.6-1.3); MAGNESIUM - SERUM 1.9 mg/dL (1.8-2.4); PHOSPHOROUS 3.4 mg/dL (2.5-4.9); POTASSIUM - SERUM 4.4 mmol/L (3.5-5.1); PROTEIN - SERUM 6.9 g/dL (6.4-8.2)
--- NOTE | 2020-05-25 07:45 | NUR ---
PT WANTED TO BE REMOVED FROM BIPAP AND PLACED ON HIGH FLOW NASAL CANNULA TO SIT ON THE SIDE OF THE BED FOR BREAKFAST. MEDICATION GIVEN PER MAR. CALL LIGHT IS IN REACH AND BED IS IN LOW POSITION. PT DENIES ANY NEEDS AT THIS TIME
--- NOTE | 2020-05-25 10:51 | NUR ---
Nutrition follow-up: Pt receiving a consistent CHO diet Sitting on side of bed eating breakfast Labs reviewed Wt: 147# Pt has had some stomach pain Will continue to provide food choices and honor food preferences within diet restrictions. RDN following.
--- NOTE | 2020-05-25 17:39 | NUR ---
PT SITTING UP ON THE SIDE OF THE BED EATING DINNER UNASISSTED. CLL LIGHT ISIN REACH AND BED IS IN LOW POSITION. PT DENIES ANY NEEDS AT THIS TIME
[2020-05-26] VITALS (24 sets, daily range): BP systolic 90–127; BP diastolic 59–99
[2020-05-26 04:43] LABS: HEMOGLOBIN 15.8 g/dL (12-16); MCH 27.6 pg (26.0-34.0); MCHC 30.4 g/dL (31.0-37.0); MCV 90.9 fL (80.0-100.0); MEAN PLATELET VOLUME 11.2 fL (7.4-10.4); PLATELET COUNT 209 10x3/uL (130-400); RBC 5.72 10x6/uL (4.00-5.40); RDW 18.1 % (11.5-14.5); WBC 5.8 10x3/uL (4.8-10.8)
[2020-05-26 05:16] LABS: ALBUMIN 3.4 g/dL (3.4-5.0); ANION GAP 9.7 mmol/L (8-16); BILIRUBIN - TOTAL 1.03 mg/dL (0.2-1.3); CALCIUM 8.5 mg/dL (8.5-10.1); CARBON DIOXIDE 31.5 mmol/L (21.0-32.0); CREATININE - SERUM 1.6 mg/dL (0.6-1.3); MAGNESIUM - SERUM 1.7 mg/dL (1.8-2.4); PHOSPHOROUS 3.3 mg/dL (2.5-4.9); POTASSIUM - SERUM 4.2 mmol/L (3.5-5.1); PROTEIN - SERUM 6.8 g/dL (6.4-8.2)
--- NOTE | 2020-05-26 07:00 | NUR ---
RECEIVED BEDSIDE REPORT ON PATIENT AND ASSUMED CARE. PATIENT ALERT AND ORIENTED X 4, VSS. IV 22 GA TO LEFT WRIST INFUSING DOBUTAMINE AT 2.5 MCG/KG/MIN. BBS - CLEAR AND EQUAL, DIMINISHED IN THE BASES, ON 15 LPM VIA HIGH FLOW NC. SPO2 - 95%. DRIVER CATH IN PLACE WITH 150 ML OF YELLOW, CLEAR UOP NOTED. HEAD TO TOE ASSESSMENT COMPLETED.
--- NOTE | 2020-05-26 07:54 | NUR ---
MAG 1.7 ON MORNING LABS, MAG REPLACED PER ELECTROLYTE PROTOCOL. GIVEN BREAKFAST TRAY. VSS. NO NEEDS AT THIS TIME.
--- NOTE | 2020-05-26 10:51 | NUR ---
PATIENT ASSISTED WITH CHG BATH AND COMPLETE LINEN CHANGE. VSS.
--- NOTE | 2020-05-26 11:28 | NUR ---
REASSESSMENT COMPLETED. VSS.
[2020-05-26 12:50] LABS: ANISOCYTOSIS OCC; EOSINOPHILS 3 % (0-7); LYMPHOCYTES 22 % (15-50); MONOCYTES 11 % (2-11); NEUTROPHILS 61 % (40-80); PLATELET ESTIMATE NORMAL
--- NOTE | 2020-05-26 13:04 | NUR ---
PATIENT ATE 100% OF LUNCH, ASSISTED UP TO BEDSIDE COMMODE, VOIDS 160 ML OF CLEAR YELLOW UOP. BACK TO BED. VSS.
--- NOTE | 2020-05-26 14:24 | NUR ---
PT REQUESTING PRN PAIN MEDICATION. TOO SOON PER EMAR FROM LAST ADMINSTERED [facility]. OFFERED REPOSITIONING. WILL TRY NONPHARMALOGIC INTERVENTIONS.
--- NOTE | 2020-05-26 16:10 | NUR ---
PATIENT GIVEN TYLENOL FOR C/0 PAIN TO BACK RATES 04/03. VSS.
[2020-05-27] VITALS (10 sets, daily range): BP systolic 102–127; BP diastolic 68–95
[2020-05-27 04:49] LABS: ANION GAP 8.6 mmol/L (8-16); CALCIUM 8.4 mg/dL (8.5-10.1); CARBON DIOXIDE 34.5 mmol/L (21.0-32.0); CREATININE - SERUM 1.5 mg/dL (0.6-1.3); POTASSIUM - SERUM 4.1 mmol/L (3.5-5.1)
[2020-05-27 05:37] LABS: BASOPHILS 0.2 % (0-2); EOSINOPHILS 5.1 % (0-7); HEMATOCRIT 50.9 % (36.0-48.0); HEMOGLOBIN 15.6 g/dL (12-16); IMMATURE GRANULOCYTES 0.2 % (0-5); LYMPHOCYTES 19.9 % (15-50); MCHC 30.6 g/dL (31.0-37.0); MCV 91.4 fL (80.0-100.0); MEAN PLATELET VOLUME 10.5 fL (7.4-10.4); NEUTROPHILS 57.6 % (40-80); PLATELET COUNT 163 10x3/uL (130-400); RBC 5.57 10x6/uL (4.00-5.40); RDW 18.1 % (11.5-14.5); WBC 5.3 10x3/uL (4.8-10.8)
--- NOTE | 2020-05-27 10:20 | NUR ---
PATIENT UP AMBULATING WITH PHYSICAL THERAPY.
--- NOTE | 2020-05-27 10:57 | NUR ---
Nutrition follow-up: Pt receiving a consistent CHO diet with po intake 100% of most meals Labs reviewed; glucose under good control Wt: 144# to floor soon RDN following.
--- NOTE | 2020-05-27 13:19 | NUR ---
PATIENT TRANSFERRED TO [facility] WITH ALL PERSONAL BELONGINGS.
--- NOTE | 2020-05-27 14:06 | NUR ---
RECEIVED PT FROM ICU. PT IS AAO AND UP AD DARREN. RR EVEN AND UNLABORED ON 4L HIGH FLOW NC. FALL PRECAUTIONS IN PLACE. DOBUTAMINE INFUSING @2.5MCG/KG VIA L.FOR. NO S/S OF DISTRESS NOTED. WILL CTM.
[2020-05-28] VITALS: BP 99/68
[2020-05-28 06:16] LABS: BASOPHILS 0.2 % (0-2); HEMATOCRIT 52.1 % (36.0-48.0); HEMOGLOBIN 15.7 g/dL (12-16); IMMATURE GRANULOCYTES 0.2 % (0-5); LYMPHOCYTES 20.6 % (15-50); MCH 27.4 pg (26.0-34.0); MCHC 30.1 g/dL (31.0-37.0); MCV 91.1 fL (80.0-100.0); MONOCYTES 18.7 % (2-11); NEUTROPHILS 54.3 % (40-80); PLATELET COUNT 163 10x3/uL (130-400); RBC 5.72 10x6/uL (4.00-5.40); RDW 17.9 % (11.5-14.5); WBC 4.2 10x3/uL (4.8-10.8)
[2020-05-28 06:34] LABS: ANION GAP 11.7 mmol/L (8-16); CALCIUM 8.7 mg/dL (8.5-10.1); CARBON DIOXIDE 28.9 mmol/L (21.0-32.0); CREATININE - SERUM 1.5 mg/dL (0.6-1.3); MAGNESIUM - SERUM 2.1 mg/dL (1.8-2.4); PHOSPHOROUS 4.2 mg/dL (2.5-4.9); POTASSIUM - SERUM 3.6 mmol/L (3.5-5.1)
--- NOTE | 2020-05-28 08:00 | NUR ---
PT SITTING UP IN BED. WATCHING TV. PT STATES SHE HAS NO FURTHER NEEDS AT THIS TIME. BED LOW. CL IN REACH. WILL CONTINUE WITH POC.
[2020-05-28 09:32] VITALS: BP 104/80
--- NOTE | 2020-05-28 12:04 | NUR ---
DR. MAY GAVE THIS NURSE V.O. TO GIVE ONE TIME KDUR 40MEQ FOR POTASSIUM LEVEL OF 3.6. I VERBALIZED UNDERSTANDING.
[2020-05-28 13:55] VITALS: BP 90/52
--- NOTE | 2020-05-28 18:02 | NUR ---
I have reviewed this patient and I concur with the Shift Assessment completed by the Licensed Practical Nurse today this shift.
[2020-05-28 20:00] VITALS: BP 103/68
[2020-05-29 04:00] VITALS: BP 94/70
[2020-05-29 06:39] LABS: ANION GAP 15.8 mmol/L (8-16); CALCIUM 8.7 mg/dL (8.5-10.1); CARBON DIOXIDE 23.5 mmol/L (21.0-32.0); CREATININE - SERUM 1.6 mg/dL (0.6-1.3)
[2020-05-29 06:40] LABS: POTASSIUM - SERUM 4.3 mmol/L (3.5-5.1)
[2020-05-29 07:54] LABS: HEMATOCRIT 51.1 % (36.0-48.0); HEMOGLOBIN 15.1 g/dL (12-16); MCH 27.2 pg (26.0-34.0); MCHC 29.5 g/dL (31.0-37.0); MCV 91.9 fL (80.0-100.0); PLATELET COUNT 142 10x3/uL (130-400); RBC 5.56 10x6/uL (4.00-5.40); RDW 17.9 % (11.5-14.5); WBC 3.7 10x3/uL (4.8-10.8)
--- NOTE | 2020-05-29 09:55 | MORECARE ---
CASE MANAGEMENT DISCHARGE SUMMARY PATIENT: BABATUNDE CAMPOVERDE UNIT: [id number] ADM DATE: 05/21/20 AGE: 60 : 56 SEX: F ROOM/BED: D.2117 AUTHOR: PIERRE MISTRY PHYSICIAN: REFERRING PHYSICIAN: BIANCA SHERWOOD MD DATE OF SERVICE: 05/29/20 Discharge Plan Patient Name: BABATUNDE CAMPOVERDE Facility: [facility]:[place] : 1960 Planned Disposition: Home or Self Care Anticipated Discharge Date: Discharge Date: Expected LOS: Initial Reviewer: [id number] Initial Review Date: 05/21/2020 Generated: 05/29/20 10:54 am External Providers External Provider: OTHER-OTHER Next Contact Date: Service Request Date: Service Type: Resolution: Reviewer: Comments: Patient Name: BABATUNDE CAMPOVERDE Page 62370 at 0955 All edits/amendments must be made on the electronic document DICTATION DATE: 05/29/20953 ROLL PLUGGER MACHINE OPERATOR: HEDY 05/29/2054 RPT#: [id number] DC DATE: STATUS: ADM IN [place] [address] [place] [address] END OF REPORT
[2020-05-29 10:01] VITALS: BP 104/68
--- NOTE | 2020-05-29 10:02 | MORECARE ---
CASE MANAGEMENT DISCHARGE SUMMARY PATIENT: BABATUNDE ALDANA UNIT: [id number] ADM DATE: 05/21/20 AGE: 60 : 56 SEX: F ROOM/BED: D.6770 AUTHOR: FEDE,DOC PHYSICIAN: REFERRING PHYSICIAN: BIANCA SHERWOOD MD DATE OF SERVICE: 05/29/20 Discharge Plan Patient Name: BABATUNDE ALDANA Facility: [facility]:[place] : 1960 Planned Disposition: Home or Self Care Anticipated Discharge Date: Discharge Date: Expected LOS: Initial Reviewer: [email or web address] Initial Review Date: 05/21/2020 Generated: 05/29/20 11:01 am Comments DCP- Discharge Planning Updated by [email or web address]: Esau Martínez on 05/29/20 9:[address] Patient Name: BABATUNDE ALDANA Admission Status: ER Accout number: [id number] Admission Date: 05-21-2020 : 1960 Admission Diagnosis:HYPERTENSIVE HEART DISEASE WITH HEART FAILURE Attending: BIANCA SHERWOOD Current LOS: 8 Anticipated DC Date: Planned Disposition: Home or Self Care Primary Insurance: [facility] MEDICARE SOLUTIONS Discharge Planning Comments: CM met with patient to complete initial dc planning assessment. CM educated patient on the CM role and verbal consent given by patient to complete assessment. CM verified patient's address, phone number, and emergency contact phone numbers. Patient lives at home with , Sajan Aldana ([phone] or [phone]). At discharge patient plans to return home and feels this is a safe discharge. Patient did however express that although she can navigate the hand-railed stairs to her dwelling, she desires a ramp to be built. Explained that she would have to contract someone to provide that service.Patient further explained that she has help at home with her sister, daughter (Suzanne Tamez - [phone]), and grandson (Lc Aldana - [phone]). CM discussed availability of home health, rehab services, and medical equipment. Patient stated that she has received HH services in the past but it was once a month and she states that she is currently working with her sister to provide these same services. Patient declines HH at this time and other lower levels of care. Patient expressed desire to change DME supply company to one that supplies portable oxygen equipment that "makes its own oxygen". Discussed [employer] supply with patient. Phone calls to [employer] revealed that the company is in [place] and may prove to be difficult in acquiring supplies and maintaining the portable oxygen equipment as well as obtaining the new oxygen equipment before discharge. Discussed this potential problem with the patient and she said it would be no problem to get the supplies because her "...son lives in [place] and he can get the supplies...". Discussed the logistics of that decision with the patient and she agreed that it may not be the best option at this time. Patient did request to know whether she will qualify for the equipment, so a face sheet was faxed to [employer] Color Straining Bag Washer, Mert at [phone] (phone [phone]). Awaiting qualification information. Patient further expressed that she is willing to keep her same DME for portable oxygen if she can switch to equipment that is "smaller" as the current one hurts her back. Unfortunately, patient does not remember where she gets her oxygen or the medical supplier. It was noted that the oxygen was in a [employer] carrying case. Patient affirmed the company. Attempts to call [employer]/[facility] in the surrounding areas of her residence yielded no result. Informed patient that this CM attempted to call [employer] and [place] to no avail. Patient remembered that she gets her supplies in [place], [place]. Phone call to [employer] in [place] at revealed that the patient is "...currently in collections and cannot make changes to her equipment at this time. She will however continue to receive supplies but no new equipment..." can be obtained or changed. Transportation provider at discharge will be her daughter Suzanne. CM will continue to follow and will assist as needed with dc plans/needs. Color Straining Bag Washer: Esau Martínez DCPIA - Discharge Planning Initial Assessment Updated by [email or web address]: Esau Martínez on 05/29/20 9:58 am * Is the patient Alert and Oriented? Yes * How many steps to enter\\exit or inside your home? 10/0 * PCP Dr. Purvis * Pharmacy [facility] * Preadmission Environment Home with Family * ADLs Independent * Equipment BIPAP Cane Nebulizer Oxygen * List name and contact numbers for known caregivers / representatives who currently or will assist patient after discharge: Sajan Aldana (spouse) - [phone] | [phone] Suzanne Tamez (daughter) [phone] Lc Aldana (Grandson) - [phone] * Verbal permission to speak to the caregivers and representatives has been obtained from the patient. Yes * Community resources currently utilized None * Additional services required to return to the preadmission environment? No * Can the patient safely return to the preadmission environment? Yes * Has this patient been hospitalized within the prior 30 days at any hospital? No Last DP export: 05/29/20 8:55 am Patient Name: BABATUNDE ALDANA Page 23319 at 1002 All edits/amendments must be made on the electronic document DICTATION DATE: 05/29/20 1001 MERCHANDISE SUPERVISOR: HEDY 05/29/20 1001 RPT#: [id number] DC DATE: STATUS: ADM IN [facility] [address] [place] [address] END OF REPORT
--- NOTE | 2020-05-29 10:45 | NUR ---
DOBUTAMINE STOPPED PER 'S VERBAL ORDERS. PT CURRENTLY SALINE LOCKED. WILL CTM.
[2020-05-29 11:55] LABS: EOSINOPHILS 1 % (0-7); LYMPHOCYTES 22 % (15-50); MONOCYTES 19 % (2-11); NEUTROPHILS 58 % (40-80); PLATELET ESTIMATE NORMAL; ROULEAUX OCC
--- NOTE | 2020-05-29 12:38 | NUR ---
Nutrition Follow-up: Pt sleeping soundly at time of visit this AM. Chart reviewed. Ate 100% of breakfast. Diet: Diabetic PO intake: 75-100% Wt: 138.2# (05/29) Labs noted: Glu 103 Meds noted: Lasix, Pepcid, electrolyte protocol -Monitor wt; noted daily wts ordered. -RD following.
[2020-05-29 13:38] VITALS: BP 93/72
[2020-05-29] MEDS ORDERED: LASIX20 MG PO (13:50)
--- NOTE | 2020-05-29 14:28 | MORECARE ---
CASE MANAGEMENT DISCHARGE SUMMARY PATIENT: BABATUNDE ALDANA UNIT: [id number] ADM DATE: 05/21/20 AGE: 60 : 56 SEX: F ROOM/BED: D.1544 AUTHOR: FEDE,DOC PHYSICIAN: REFERRING PHYSICIAN: BIANCA SHERWOOD MD DATE OF SERVICE: 05/29/20 Discharge Plan Patient Name: BABATUNDE ALDANA Facility: [facility]:[place] : 1960 Planned Disposition: Home or Self Care Anticipated Discharge Date: Discharge Date: Expected LOS: Initial Reviewer: [email or web address] Initial Review Date: 05/21/2020 Generated: 05/29/20 3:27 pm Comments DCP- Discharge Planning Updated by [id number]: Yane Todd on 05/29/20 1:[address] DC orders received. States her sister is going to pick her up. She has her portable oxygen with her. Discharging home today, no needs identified. DCP- Discharge Planning Updated by [id number]: Esau Martínez on 05/29/20 9:[address] Patient Name: BABATUNDE ALDANA Admission Status: ER Accout number: [id number] Admission Date: 05-21-2020 : 1960 Admission Diagnosis:HYPERTENSIVE HEART DISEASE WITH HEART FAILURE Attending: BIANCA SHERWOOD Current LOS: 8 Anticipated DC Date: Planned Disposition: Home or Self Care Primary Insurance: [facility] MEDICARE SOLUTIONS Discharge Planning Comments: CM met with patient to complete initial dc planning assessment. CM educated patient on the CM role and verbal consent given by patient to complete assessment. CM verified patient's address, phone number, and emergency contact phone numbers. Patient lives at home with , Sajan Aldana ([phone] or [phone]). At discharge patient plans to return home and feels this is a safe discharge. Patient did however express that although she can navigate the hand-railed stairs to her dwelling, she desires a ramp to be built. Explained that she would have to contract someone to provide that service.Patient further explained that she has help at home with her sister, daughter (Suzanne Tamez - [phone]), and grandson (Lc Aldana - [phone]). CM discussed availability of home health, rehab services, and medical equipment. Patient stated that she has received HH services in the past but it was once a month and she states that she is currently working with her sister to provide these same services. Patient declines HH at this time and other lower levels of care. Patient expressed desire to change DME supply company to one that supplies portable oxygen equipment that "makes its own oxygen". Discussed [employer] supply with patient. Phone calls to [employer] revealed that the company is in [place] and may prove to be difficult in acquiring supplies and maintaining the portable oxygen equipment as well as obtaining the new oxygen equipment before discharge. Discussed this potential problem with the patient and she said it would be no problem to get the supplies because her "...son lives in [place] and he can get the supplies...". Discussed the logistics of that decision with the patient and she agreed that it may not be the best option at this time. Patient did request to know whether she will qualify for the equipment, so a face sheet was faxed to [employer] Big Data Platform Architect, Mert at [phone] (phone [phone]). Awaiting qualification information. Patient further expressed that she is willing to keep her same DME for portable oxygen if she can switch to equipment that is "smaller" as the current one hurts her back. Unfortunately, patient does not remember where she gets her oxygen or the medical supplier. It was noted that the oxygen was in a [employer] carrying case. Patient affirmed the company. Attempts to call [employer]/[facility] in the surrounding areas of her residence yielded no result. Informed patient that this CM attempted to call [employer] and [place] to no avail. Patient remembered that she gets her supplies in [place], [place]. Phone call to [employer] in [place] at revealed that the patient is "...currently in collections and cannot make changes to her equipment at this time. She will however continue to receive supplies but no new equipment..." can be obtained or changed. Transportation provider at discharge will be her daughter Suzanne. CM will continue to follow and will assist as needed with dc plans/needs. Big Data Platform Architect: Esau Martínez DCPIA - Discharge Planning Initial Assessment Updated by [email or web address]: Esau Martínez on 05/29/20 9:58 am * Is the patient Alert and Oriented? Yes * How many steps to enter\\exit or inside your home? 10/0 * PCP Dr. Purvis * Pharmacy [facility] * Preadmission Environment Home with Family * ADLs Independent * Equipment BIPAP Cane Nebulizer Oxygen * List name and contact numbers for known caregivers / representatives who currently or will assist patient after discharge: Sajan Aldana (spouse) - [phone] | [phone] Suzanne Tamez (daughter) [phone] Lc Aldana (Grandson) - [phone] * Verbal permission to speak to the caregivers and representatives has been obtained from the patient. Yes * Community resources currently utilized None * Additional services required to return to the preadmission environment? No * Can the patient safely return to the preadmission environment? Yes * Has this patient been hospitalized within the prior 30 days at any hospital? No Coverage Notice Reviewer: [email or web address] Lauren Todd Notice Issued Date-Time: 05/29/2020 14:11 Notice Type: IM Discharge Notice Notice Delivered To: Patient Relationship to Patient: Self Electric Motor Assembler And Tester Name: Delivery Method: HAND - Hand Delivered Slime Days: Prior Verbal Notification: Recipient Understood Notice: Yes Recipient Signature: Yes Med Rec Note Co-signed by Attending: Coverage Notice Comment: Last DP export: 05/29/20 9:02 am Patient Name: BABATUNDE ALDANA Page 38041 at 1428 All edits/amendments must be made on the electronic document DICTATION DATE: 05/29/201426 REFINERY PROCESS ENGINEER: HEDY 05/29/20 142 RPT#: [id number] DC DATE: STATUS: ADM IN [facility] [address] [place] [address] END OF REPORT
--- NOTE | 2020-05-29 16:04 | NUR ---
PT DISCHARGED HOME VIA WHEELCHAIR WITH FAMILY. TELEMTRY REMOVED AND RETURNED. PT SIGNED PROPER DISCHARGE INSTRUCTIONS AND REMOVED ALL VALUABLES FROM THE ROOM. PIV REMOVED WITH CATHETER TIP FULLY INTACT.
--- NOTE | 2020-06-02 16:00 | MORECARE ---
CASE MANAGEMENT DISCHARGE SUMMARY PATIENT: BABATUNDE ALDANA UNIT: [id number] ADM DATE: 05/21/20 AGE: 60 : 56 SEX: F ROOM/BED: D.3466 AUTHOR: FEDE,DOC PHYSICIAN: REFERRING PHYSICIAN: BIANCA SHERWOOD MD DATE OF SERVICE: 06/02/20 Discharge Plan Patient Name: BABATUNDE ALDANA Facility: [facility]:[place] : 1960 Planned Disposition: Home or Self Care Anticipated Discharge Date: Discharge Date: 05/29/2020 Expected LOS: Initial Reviewer: [email or web address] Initial Review Date: 05/21/2020 Generated: 06/02/20 5:00 pm Comments DCP- Discharge Planning Updated by [email or web address]: Yane Todd on 05/29/20 1:[address] DC orders received. States her sister is going to pick her up. She has her portable oxygen with her. Discharging home today, no needs identified. DCP- Discharge Planning Updated by [email or web address]: Esau Martínez on 05/29/20 9:[address] Patient Name: BABATUNDE ALDANA Admission Status: ER Accout number: [id number] Admission Date: 05-21-2020 : 1960 Admission Diagnosis:HYPERTENSIVE HEART DISEASE WITH HEART FAILURE Attending: BIANCA SHERWOOD Current LOS: 8 Anticipated DC Date: Planned Disposition: Home or Self Care Primary Insurance: [facility] MEDICARE SOLUTIONS Discharge Planning Comments: CM met with patient to complete initial dc planning assessment. CM educated patient on the CM role and verbal consent given by patient to complete assessment. CM verified patient's address, phone number, and emergency contact phone numbers. Patient lives at home with , Sajan Aldana ([phone] or [phone]). At discharge patient plans to return home and feels this is a safe discharge. Patient did however express that although she can navigate the hand-railed stairs to her dwelling, she desires a ramp to be built. Explained that she would have to contract someone to provide that service.Patient further explained that she has help at home with her sister, daughter (Suzanne Tamez - [phone]), and grandson (Lc Aldana - [phone]). CM discussed availability of home health, rehab services, and medical equipment. Patient stated that she has received HH services in the past but it was once a month and she states that she is currently working with her sister to provide these same services. Patient declines HH at this time and other lower levels of care. Patient expressed desire to change DME supply company to one that supplies portable oxygen equipment that "makes its own oxygen". Discussed [employer] supply with patient. Phone calls to [employer] revealed that the company is in [place] and may prove to be difficult in acquiring supplies and maintaining the portable oxygen equipment as well as obtaining the new oxygen equipment before discharge. Discussed this potential problem with the patient and she said it would be no problem to get the supplies because her "...son lives in [place] and he can get the supplies...". Discussed the logistics of that decision with the patient and she agreed that it may not be the best option at this time. Patient did request to know whether she will qualify for the equipment, so a face sheet was faxed to [employer] Local Delivery Driver, Mert at [phone] (phone [phone]). Awaiting qualification information. Patient further expressed that she is willing to keep her same DME for portable oxygen if she can switch to equipment that is "smaller" as the current one hurts her back. Unfortunately, patient does not remember where she gets her oxygen or the medical supplier. It was noted that the oxygen was in a [employer] carrying case. Patient affirmed the company. Attempts to call [employer]/[facility] in the surrounding areas of her residence yielded no result. Informed patient that this CM attempted to call [employer] and [employer] to no avail. Patient remembered that she gets her supplies in [place], [place]. Phone call to [employer] in [place] at revealed that the patient is "...currently in collections and cannot make changes to her equipment at this time. She will however continue to receive supplies but no new equipment..." can be obtained or changed. Transportation provider at discharge will be her daughter Suzanne. CM will continue to follow and will assist as needed with dc plans/needs. Local Delivery Driver: Esau Martínez DCPIA - Discharge Planning Initial Assessment Updated by [email or web address]: Esau Martínez on 05/29/20 9:58 am * Is the patient Alert and Oriented? Yes * How many steps to enter\\exit or inside your home? 0 * PCP Dr. Purvis * Pharmacy [facility] * Preadmission Environment Home with Family * ADLs Independent * Equipment BIPAP Cane Nebulizer Oxygen * List name and contact numbers for known caregivers / representatives who currently or will assist patient after discharge: Sajan Aldana (spouse) - [phone] | [phone] Suzanne Tamez (daughter) [phone] Lc Aldana (Grandson) - [phone] * Verbal permission to speak to the caregivers and representatives has been obtained from the patient. Yes * Community resources currently utilized None * Additional services required to return to the preadmission environment? No * Can the patient safely return to the preadmission environment? Yes * Has this patient been hospitalized within the prior 30 days at any hospital? No Coverage Notice Reviewer: [id number] Lauren Todd Notice Issued Date-Time: 05/29/2020 14:11 Notice Type: IM Discharge Notice Notice Delivered To: Patient Relationship to Patient: Self Umbrella Repairer Name: Delivery Method: HAND - Hand Delivered Slime Days: Prior Verbal Notification: Recipient Understood Notice: Yes Recipient Signature: Yes Med Rec Note Co-signed by Attending: Coverage Notice Comment: Last DP export: 05/29/20 1:28 pm Patient Name: BABATUNDE ALDANA Page [id number] at 1600 All edits/amendments must be made on the electronic document DICTATION DATE: 06/02/20 1600 FIRE EQUIPMENT OPERATOR: HEDY 06/02/20 1600 RPT#: [id number] DC DATE:05/29/20 STATUS: DIS IN [facility] [address] [place] [address] END OF REPORT
== END 2020-05-29 16:05 | disposition home or self-care (01) | DRG 291 ==
LOC: D.ER 18:48 → D.ICU 20:01 → D.M2 05-27 13:00
PROVIDERS: Emergency Medicine; Family Medicine; Internal Medicine; ADMIT Family Medicine; ATTEND Family Medicine
PROC: 5A09357 Assistance with Respiratory Ventilation, Less than 24 Consecutive Hours, Continuous Positive Airway Pressure (ICD-10-PCS; principal; 2020-05-22)
DX: I13.0 Hypertensive heart and chronic kidney disease with heart failure and stage 1 through stage 4 chronic kidney disease, or unspecified chronic kidney disease (principal); J96.22 Acute and chronic respiratory failure with hypercapnia; I50.23 Acute on chronic systolic (congestive) heart failure; J96.21 Acute and chronic respiratory failure with hypoxia; G93.41 Metabolic encephalopathy; N17.9 Acute kidney failure, unspecified; E87.1 Hypo-osmolality and hyponatremia; E11.22 Type 2 diabetes mellitus with diabetic chronic kidney disease; N18.9 Chronic kidney disease, unspecified; E87.5 Hyperkalemia; G89.29 Other chronic pain; J44.9 Chronic obstructive pulmonary disease, unspecified; D64.9 Anemia, unspecified; Z85.42 Personal history of malignant neoplasm of other parts of uterus

== ENCOUNTER 2020-06-12 17:31 | Inpatient (IN) | payer MEDICARE ==
[~2020-06-12] VITALS: Ht 165.1 cm; Wt 72.6 kg
[~2020-06-12 17:31] MED LIST changes: +LASIX20 MG PO
[2020-06-12 18:07] LABS: BASOPHILS 0.1 % (0-2); EOSINOPHILS 0.3 % (0-7); HEMATOCRIT 51.5 % (36.0-48.0); HEMOGLOBIN 15.1 g/dL (12-16); IMMATURE GRANULOCYTES 0.6 % (0-5); LYMPHOCYTES 14.5 % (15-50); MCHC 29.3 g/dL (31.0-37.0); MCV 95.5 fL (80.0-100.0); MEAN PLATELET VOLUME 9.8 fL (7.4-10.4); MONOCYTES 12.6 % (2-11); NEUTROPHILS 71.9 % (40-80); RBC 5.39 10x6/uL (4.00-5.40); WBC 7.9 10x3/uL (4.8-10.8)
[2020-06-12 18:08] LABS: PLATELET COUNT 233 10x3/uL (130-400)
[2020-06-12 18:27] LABS: CALC OSMOLALITY 273 mosm/kg (275-300); CALCIUM 9.1 mg/dL (8.5-10.1); CARBON DIOXIDE 26.2 mmol/L (21.0-32.0); CHLORIDE - SERUM 94 mmol/L (98-107); CREATININE - SERUM 3.4 mg/dL (0.6-1.3); POTASSIUM - SERUM 5.6 mmol/L (3.5-5.1); SODIUM 131 mmol/L (136-145); UREA NITROGEN 51 mg/dL (7-18); eGFR NON AFRICAN AMERICAN 14 mL/min (90-120)
[2020-06-12 18:33] LABS: GLUCOSE 53 mg/dL (74-106)
[2020-06-12 18:42] LABS: ALBUMIN 3.8 g/dL (3.4-5.0); ALKALINE PHOSPHATASE 99 U/L (30-120); ALT (SGPT) 448 U/L (10-68); BILIRUBIN - TOTAL 0.98 mg/dL (0.2-1.3); CKMB 3.1 U/L (0.0-3.6); CREATINE KINASE 56 UL (21-215); MAGNESIUM - SERUM 2.8 mg/dL (1.8-2.4); PROTEIN - SERUM 7.7 g/dL (6.4-8.2)
[2020-06-12 18:45] VITALS: BP 130/83
[2020-06-12 19:00] VITALS: BP 122/79
[2020-06-12 20:32] LABS: BILIRUBIN NEGATIVE (NEGATIVE); KETONE NEGATIVE (NEGATIVE); NITRITE NEGATIVE (NEGATIVE); UROBILINOGEN NORMAL mg/dL (< 2)
[2020-06-12 20:33] LABS: EPITHELIAL CELLS 0-5 /hpf (0-5); WHITE CELLS - URINE 0-5 HPF (0-4)
[2020-06-12 20:34] LABS: BACTERIA FEW HPF (NONE SEEN)
--- NOTE | 2020-06-12 20:50 | NUR ---
covid test to lab
--- NOTE | 2020-06-12 21:40 | NUR ---
PT FROM ER VIA W/C, PT AMBULATES TO BATHROOM, RESP EVEN AND UNLABORED, NO DISTRESS NOTED, PT WALKED TO BED, SR UP X 1, CL IN REACH AT THIS TIME.
[2020-06-12 22:43] VITALS: BP 118/77
[2020-06-13 05:33] VITALS: BP 113/60
[2020-06-13 05:57] LABS: HEMATOCRIT 51.3 % (36.0-48.0); HEMOGLOBIN 15.1 g/dL (12-16); MCH 28.2 pg (26.0-34.0); MCHC 29.4 g/dL (31.0-37.0); MCV 95.9 fL (80.0-100.0); MEAN PLATELET VOLUME 10.3 fL (7.4-10.4); PLATELET COUNT 217 10x3/uL (130-400); RBC 5.35 10x6/uL (4.00-5.40)
[2020-06-13 05:58] LABS: WBC 5.7 10x3/uL (4.8-10.8)
[2020-06-13 06:10] LABS: ALBUMIN 3.6 g/dL (3.4-5.0); ANION GAP 15.3 mmol/L (8-16); BILIRUBIN - TOTAL 0.76 mg/dL (0.2-1.3); CALCIUM 8.7 mg/dL (8.5-10.1); CARBON DIOXIDE 28.8 mmol/L (21.0-32.0); CREATININE - SERUM 3.1 mg/dL (0.6-1.3); MAGNESIUM - SERUM 2.8 mg/dL (1.8-2.4); PHOSPHOROUS 6.1 mg/dL (2.5-4.9); POTASSIUM - SERUM 5.1 mmol/L (3.5-5.1); PROTEIN - SERUM 7.2 g/dL (6.4-8.2); TROPONIN-I 0.047 ng/mL (0.000-0.060)
[2020-06-13 06:27] LABS: ANISOCYTOSIS OCC; LYMPHOCYTES 27 % (15-50); MONOCYTES 2 % (2-11); NEUTROPHILS 71 % (40-80); PLATELET ESTIMATE NORMAL
[2020-06-13 08:31] VITALS: BP 107/72
[2020-06-13 11:45] VITALS: BP 109/68
[2020-06-13 16:26] VITALS: BP 128/80
--- NOTE | 2020-06-13 19:05 | NUR ---
REPORT RECEIVED, PT CARE ASSUMED. INTRODUCED SELF AND WROTE NAME ON BOARD. PT SITTING UP IN BED, WATCHING TV, AAOX4. DENEIS ANY NEEDS AT THIS TIME. BED IN LOWEST, SRX1, CALL LIGHT WITHIN REACH. WILL CTM.
[2020-06-13 20:45] VITALS: BP 117/72
[2020-06-14 00:05] VITALS: BP 113/60
[2020-06-14 05:34] VITALS: BP 123/71
[2020-06-14 06:41] LABS: BASOPHILS 0 % (0-2); EOSINOPHILS 2.5 % (0-7); HEMATOCRIT 47.9 % (36.0-48.0); HEMOGLOBIN 14.1 g/dL (12-16); IMMATURE GRANULOCYTES 0.3 % (0-5); MCH 27.7 pg (26.0-34.0); MCHC 29.4 g/dL (31.0-37.0); MCV 94.1 fL (80.0-100.0); MEAN PLATELET VOLUME 10.2 fL (7.4-10.4); NEUTROPHILS 59.7 % (40-80); PLATELET COUNT 210 10x3/uL (130-400); RBC 5.09 10x6/uL (4.00-5.40); RDW 19.3 % (11.5-14.5); WBC 6.4 10x3/uL (4.8-10.8)
[2020-06-14 06:43] LABS: MONOCYTES 24.5 % (2-11)
[2020-06-14 06:51] LABS: ALBUMIN 3.1 g/dL (3.4-5.0); BILIRUBIN - TOTAL 0.74 mg/dL (0.2-1.3); CARBON DIOXIDE 33.4 mmol/L (21.0-32.0); MAGNESIUM - SERUM 2.3 mg/dL (1.8-2.4); PROTEIN - SERUM 6.6 g/dL (6.4-8.2)
[2020-06-14 06:57] LABS: CREATININE - SERUM 2.3 mg/dL (0.6-1.3); PHOSPHOROUS 4.5 mg/dL (2.5-4.9)
[2020-06-14 06:58] LABS: ANION GAP 8.3 mmol/L (8-16); POTASSIUM - SERUM 3.7 mmol/L (3.5-5.1)
[2020-06-14 08:23] VITALS: BP 132/72
[2020-06-14 12:19] VITALS: BP 116/66
[2020-06-14 16:00] VITALS: BP 132/75
--- NOTE | 2020-06-14 18:08 | NUR ---
PT AWAKE AND OREINTED THROUGHOUT THE DAY. TOOK ALL MEDICAITONS WITHOUT COMPLICATIONS. NO COMPLAINTS OR CONCERNS AT THIS TIME. USED BIPAP ORDERED/ MD RECCOMENDED AMOUNT OF TIME. CL INR EACH, SRX2. WILL CNT. TO MONITOR.
--- NOTE | 2020-06-14 19:12 | NUR ---
PATIENT RESTING IN BED WITH EYES CLOSED AND NO S/S OF DISTRESS AT THIS TIME. BIPAP ON. BED IN LOWEST POSITION AND CALL LIGHT WITHIN REACH. WILL CONTINUE TO MONITOR.
--- NOTE | 2020-06-14 20:20 | NUR ---
ADMINISTERED MEDS PER ORDERS. PATIENT DENIES OTHER NEEDS. WILL CONTINUE TO MONITOR.
--- NOTE | 2020-06-14 20:53 | NUR ---
ADMINISTERED MEDS PER ORDERS. PATIENT DENIES OTHER NEEDS. WILL CONTINUE TO MONITOR.
[2020-06-14 21:02] VITALS: BP 109/56
[2020-06-15 00:45] VITALS: BP 95/64
[2020-06-15 04:37] VITALS: BP 108/70
[2020-06-15 06:59] LABS: BASOPHILS 0.2 % (0-2); EOSINOPHILS 3.4 % (0-7); HEMATOCRIT 48.2 % (36.0-48.0); HEMOGLOBIN 13.7 g/dL (12-16); IMMATURE GRANULOCYTES 0.5 % (0-5); LYMPHOCYTES 13.2 % (15-50); MCH 27.5 pg (26.0-34.0); MCHC 28.4 g/dL (31.0-37.0); MEAN PLATELET VOLUME 10.2 fL (7.4-10.4); MONOCYTES 17.8 % (2-11); NEUTROPHILS 64.9 % (40-80); PLATELET COUNT 198 10x3/uL (130-400); RBC 4.99 10x6/uL (4.00-5.40); RDW 19.1 % (11.5-14.5); WBC 5.7 10x3/uL (4.8-10.8)
[2020-06-15 07:06] LABS: MCV 96.6 fL (80.0-100.0)
[2020-06-15 07:14] LABS: ANION GAP 6.1 mmol/L (8-16); BILIRUBIN - TOTAL 0.76 mg/dL (0.2-1.3); CALCIUM 7.9 mg/dL (8.5-10.1); CARBON DIOXIDE 35.4 mmol/L (21.0-32.0); MAGNESIUM - SERUM 1.9 mg/dL (1.8-2.4); PHOSPHOROUS 3.8 mg/dL (2.5-4.9); POTASSIUM - SERUM 3.5 mmol/L (3.5-5.1); PROTEIN - SERUM 6.3 g/dL (6.4-8.2)
[2020-06-15 07:15] LABS: CREATININE - SERUM 1.6 mg/dL (0.6-1.3)
[2020-06-15 07:50] VITALS: BP 119/67
--- NOTE | 2020-06-15 10:45 | NUR ---
PT SAT WHEN ENTERED RM 84% ON 7L INCREASED TO 13L SAT INCREASED TO 85% PLACED PT ON HER BIPAP 08/29 100% SAT INCREASED TO 96%. ADVISED PT AND NURSE NEEDED TO STAY ON BIPAP WITH OCCASSIONALLY BREAKS TO GET A SIP OF WATER
[2020-06-15 12:01] VITALS: BP 135/86
[2020-06-15 15:37] VITALS: BP 125/74
[2020-06-15 20:00] VITALS: BP 114/636
--- NOTE | 2020-06-15 21:35 | NUR ---
PT DAUGHTER AT BEDSIDE. PT STATED DOCTOR WAS GOING TO COME BACK AND TALK WITH THEM. ADJUSTED PT'S BIPAP MASK SEVERAL TIMES. PT COMPLAINS OF MUSCLE TWITCHING AND PAIN. PRN MEDS GIVEN AT THIS TIME. BED LOW CALL LIGHT WITHIN REACH. WILL CONTINUE TO MONITOR.
[2020-06-16] VITALS: BP 112/74
--- NOTE | 2020-06-16 03:25 | NUR ---
PT RESTING WITH EYES CLOSED AT THIS TIME WITH CONTINOUS BIPAP. A/O X4. RR E/U. VITALS STABLE. NO S/S OF DISTRESS. BED LOW CALL LIGHT WITHIN REACH. WILL CONTINUE TO MONITOR.
--- NOTE | 2020-06-16 04:56 | NUR ---
I have reviewed this patient and I concur with the Shift Assessment completed by the Licensed Practical Nurse today this shift.
[2020-06-16 06:59] VITALS: BP 102/64
[2020-06-16 07:27] LABS: BASOPHILS 0.2 % (0-2); EOSINOPHILS 3.1 % (0-7); HEMATOCRIT 50.7 % (36.0-48.0); HEMOGLOBIN 14.8 g/dL (12-16); IMMATURE GRANULOCYTES 0.2 % (0-5); LYMPHOCYTES 16.4 % (15-50); MCH 27.9 pg (26.0-34.0); MCHC 29.2 g/dL (31.0-37.0); MCV 95.7 fL (80.0-100.0); MEAN PLATELET VOLUME 10.5 fL (7.4-10.4); MONOCYTES 17.4 % (2-11); NEUTROPHILS 62.7 % (40-80); PLATELET COUNT 162 10x3/uL (130-400); RDW 18.9 % (11.5-14.5); WBC 5.1 10x3/uL (4.8-10.8)
[2020-06-16 07:30] LABS: ALBUMIN 2.9 g/dL (3.4-5.0); CALCIUM 8.1 mg/dL (8.5-10.1); CARBON DIOXIDE 31.4 mmol/L (21.0-32.0); CREATININE - SERUM 1.3 mg/dL (0.6-1.3); MAGNESIUM - SERUM 1.7 mg/dL (1.8-2.4); PHOSPHOROUS 3.1 mg/dL (2.5-4.9); POTASSIUM - SERUM 3.4 mmol/L (3.5-5.1); PROTEIN - SERUM 6.4 g/dL (6.4-8.2)
--- NOTE | 2020-06-16 09:44 | NUR ---
SHE IS ALERT, WEARING THE BIPAP. WILL GET WITH RT TO SEE ABOUT BEING OFF LONG ENOUGH TO EAT/TAKE PO MEDS. THE CALLL LIGHT IS WTIHIN REACH.
[2020-06-16 12:05] VITALS: BP 109/61
[2020-06-16 12:51] VITALS: BMI 26.6
--- NOTE | 2020-06-16 14:06 | MORECARE ---
CASE MANAGEMENT DISCHARGE SUMMARY PATIENT: BABATUNDE ALDANA UNIT: [id number] ADM DATE: 06/12/20 AGE: 60 : 56 SEX: F ROOM/BED: D.2104 AUTHOR: PIERRE MISTRY PHYSICIAN: REFERRING PHYSICIAN: PEYTON MCNAIR MD DATE OF SERVICE: 06/16/20 Discharge Plan Patient Name: BABATUNDE ALDANA Facility: [facility]:[place] : 1960 Planned Disposition: Home Anticipated Discharge Date: Discharge Date: Expected LOS: Initial Reviewer: [email or web address] Initial Review Date: 06/16/2020 Generated: 06/16/20 3:05 pm DCPIA - Discharge Planning Initial Assessment Updated by [email or web address]: Yane Todd on 06/16/20 2:05 pm * Is the patient Alert and Oriented? Yes * How many steps to enter\exit or inside your home? 10 w/rails * PCP Dr. Purvis * Pharmacy [facility] * Preadmission Environment Home with Family * ADLs Partial Dependent * Partial ADLs (Assistance needed) Ambulation * Equipment BIPAP Cane Nebulizer Other Oxygen * Other Equipment Portable oxygen * List name and contact numbers for known caregivers / representatives who currently or will assist patient after discharge: Sajan Aldana - spouse - [phone] or [phone] Suzanneserg Tamez - DTR - [phone] Lc Aldana - grand son - [phone] * Verbal permission to speak to the caregivers and representatives has been obtained from the patient. Yes * Community resources currently utilized None * Additional services required to return to the preadmission environment? No * Can the patient safely return to the preadmission environment? Yes * Has this patient been hospitalized within the prior 30 days at any hospital? Yes Patient Name: BABATUNDE ALDANA Page 28795 at 1406 All edits/amendments must be made on the electronic document DICTATION DATE: 06/16/20 1405 ELECTRICAL POWER STATION TECHNICIAN: HEDY 06/16/20 1405 RPT#: [id number] DC DATE: STATUS: ADM IN [facility] [address] [place] [place] [address] END OF REPORT
--- NOTE | 2020-06-16 14:16 | MORECARE ---
CASE MANAGEMENT DISCHARGE SUMMARY PATIENT: BABATUNDE ALDANA UNIT: [id number] ADM DATE: 06/12/20 AGE: 60 : 56 SEX: F ROOM/BED: D.2104 AUTHOR: FEDE,DOC PHYSICIAN: REFERRING PHYSICIAN: PEYTON MCNAIR MD DATE OF SERVICE: 06/16/20 Discharge Plan Patient Name: BABATUNDE ALDANA Facility: [facility]:[place] : 1960 Planned Disposition: Home Anticipated Discharge Date: Discharge Date: Expected LOS: Initial Reviewer: [email or web address] Initial Review Date: 06/16/2020 Generated: 06/16/20 3:15 pm Comments DCP- Discharge Planning Updated by [email or web address]: Yane Todd on 06/16/20 1:[address] Patient Name: BABATUNDE ALDANA Admission Status: ER Accout number: [id number] Admission Date: 06-12-2020 : 1960 Admission Diagnosis: Attending: PEYTON MCNAIR Current LOS: 4 Anticipated DC Date: Planned Disposition: Home Primary Insurance: [facility] MEDICARE SOLUTIONS Discharge Planning Comments: CM met with patient to discuss discharge planning/needs, she is alone in the room. CM educated patient on the CM role and verbal consent given by patient to complete assessment. Patient lives at home with her spouse. At discharge patient plans to return and feels this is a safe discharge. States her daughter, Suzanne, is going to come stay with her on discharge. States her works during the day, so daughter will be there while her is working. CM discussed availability of home health, rehab services, and medical equipment. Patient denied known discharge needs at this time. She states that she has been wearing her Bipap at and taking her prescriptions as prescribed. CM will continue to follow and will assist as needed with dc plans/needs. Cartographic Aide: Yane Todd DCPIA - Discharge Planning Initial Assessment Updated by [email or web address]: Yane Todd on 06/16/20 2:05 pm * Is the patient Alert and Oriented? Yes * How many steps to enter\exit or inside your home? 10 w/rails * PCP Dr. Purvis * Pharmacy [facility] * Preadmission Environment Home with Family * ADLs Partial Dependent * Partial ADLs (Assistance needed) Ambulation * Equipment BIPAP Cane Nebulizer Other Oxygen * Other Equipment Portable oxygen * List name and contact numbers for known caregivers / representatives who currently or will assist patient after discharge: Sajan Aldana - spouse - [phone] or [phone] Suzanne Tamez - DTR - [phone] Lc Aldana - grand son - [phone] * Verbal permission to speak to the caregivers and representatives has been obtained from the patient. Yes * Community resources currently utilized None * Additional services required to return to the preadmission environment? No * Can the patient safely return to the preadmission environment? Yes * Has this patient been hospitalized within the prior 30 days at any hospital? Yes Last DP export: 06/16/20 1:06 p Patient Name: BABATUNDE ALDANA Page [id number] at 1416 All edits/amendments must be made on the electronic document DICTATION DATE: 06/16/20 141 APARTMENT MAINTENANCE MANAGER: HEDY 06/16/20 1416 RPT#: [id number] DC DATE: STATUS: ADM IN [facility] [address] [place] [address] END OF REPORT
--- NOTE | 2020-06-16 14:44 | NUR ---
NEW IV STARTED TO THE RIGHT ARM, 22 G. REMOVED THE ONE FROM HER RIGHT HAND.
[2020-06-16 16:20] VITALS: BP 110/76
--- NOTE | 2020-06-16 19:00 | NUR ---
REPORT RECEIVED, WILL CONTINUE POC. PATIENT IS AAOX4, LYING IN SEMI-FOWLERS POSITION. NO S/S OF DISTRESS OBSERVED, RR EVEN AND UNLABORED ON BIPAP. PATIENT DENIES NEEDS AT THIS TIME. CL IN REACH, BED LOCKED AND LOWERED. WILL CTM.
[2020-06-16 20:00] VITALS: BP 108/77; BP 127/89
[2020-06-17 04:00] VITALS: BP 123/80
[2020-06-17 06:26] LABS: BASOPHILS 0 % (0-2); EOSINOPHILS 3.3 % (0-7); HEMATOCRIT 50.6 % (36.0-48.0); HEMOGLOBIN 14.5 g/dL (12-16); IMMATURE GRANULOCYTES 0.2 % (0-5); LYMPHOCYTES 17.4 % (15-50); MCH 27.5 pg (26.0-34.0); MCHC 28.7 g/dL (31.0-37.0); MEAN PLATELET VOLUME 10.7 fL (7.4-10.4); MONOCYTES 15.7 % (2-11); NEUTROPHILS 63.4 % (40-80); PLATELET COUNT 192 10x3/uL (130-400); RBC 5.27 10x6/uL (4.00-5.40); RDW 18.6 % (11.5-14.5); WBC 5.2 10x3/uL (4.8-10.8)
[2020-06-17 07:19] LABS: ALBUMIN 3.1 g/dL (3.4-5.0); ANION GAP 10.7 mmol/L (8-16); BILIRUBIN - TOTAL 0.98 mg/dL (0.2-1.3); CALCIUM 8.6 mg/dL (8.5-10.1); CARBON DIOXIDE 30.1 mmol/L (21.0-32.0); CREATININE - SERUM 1.1 mg/dL (0.6-1.3); MAGNESIUM - SERUM 1.8 mg/dL (1.8-2.4); PHOSPHOROUS 2.5 mg/dL (2.5-4.9); POTASSIUM - SERUM 3.8 mmol/L (3.5-5.1); PROTEIN - SERUM 6.4 g/dL (6.4-8.2)
[2020-06-17 11:00] VITALS: BP 112/76
[2020-06-17 16:14] VITALS: BP 123/78
--- NOTE | 2020-06-17 19:30 | NUR ---
PT IN BED, AAO X 3, RESP EVEN AND UNLABORED, NO DISTRESS NOTED, PT ON BIPAP AT THIS TIME, CL IN REACH, SR UP X 2.
[2020-06-17 20:00] VITALS: BP 125/80
[2020-06-18 06:53] LABS: BASOPHILS 0.2 % (0-2); EOSINOPHILS 1.7 % (0-7); HEMATOCRIT 49.3 % (36.0-48.0); HEMOGLOBIN 14.3 g/dL (12-16); IMMATURE GRANULOCYTES 0.2 % (0-5); LYMPHOCYTES 12.4 % (15-50); MCH 27.6 pg (26.0-34.0); MEAN PLATELET VOLUME 10.6 fL (7.4-10.4); MONOCYTES 15.6 % (2-11); NEUTROPHILS 69.9 % (40-80); PLATELET COUNT 166 10x3/uL (130-400); RBC 5.19 10x6/uL (4.00-5.40); RDW 18.4 % (11.5-14.5)
[2020-06-18 06:54] LABS: WBC 6.6 10x3/uL (4.8-10.8)
--- NOTE | 2020-06-18 07:15 | NUR ---
RECEIVE SHIFT REPORT. RESTING IN BED WITH EYES CLOSED, BIPAP ON. NO SIGNS OF DISTRESS. WILL CONTINUE PLAN OF CARE AND SAFETY PRECAUTIONS.
[2020-06-18 07:18] LABS: ALBUMIN 2.9 g/dL (3.4-5.0); BILIRUBIN - TOTAL 0.93 mg/dL (0.2-1.3); CALCIUM 8.8 mg/dL (8.5-10.1); CARBON DIOXIDE 28.4 mmol/L (21.0-32.0); MAGNESIUM - SERUM 1.7 mg/dL (1.8-2.4); PHOSPHOROUS 2.7 mg/dL (2.5-4.9); POTASSIUM - SERUM 3.4 mmol/L (3.5-5.1); PROTEIN - SERUM 6.7 g/dL (6.4-8.2)
[2020-06-18 08:22] VITALS: BP 121/85
--- NOTE | 2020-06-18 09:44 | NUR ---
Nutrition Follow-up: Pt on bipap at time of visit this AM. Chart reviewed. Overall poor PO intake noted. Diet: Renal ADA PO intake: 42% avg x 3 meals yesterday Wt: 160# (06/16) Labs noted: K+ 3.4, Glu 78, PO4 2.7, Mg 1.7, Alb 2.9 Meds noted: Lasix, Protonix, Pepcid, electrolyte protocol -Rec liberalize to cardiac carb consistent diet; renal labs normalizing. -Monitor wt; noted daily wts ordered. -RD following.
--- NOTE | 2020-06-18 10:47 | NUR ---
INCREASED O2 TO 100% AND 18/8 SAT WAS ONLY 89% ON 168 AND 85% O2
[2020-06-18 12:23] VITALS: BP 109/75
[2020-06-18 14:44] VITALS: Ht 165.1 cm; Wt 72.6 kg
[2020-06-18 15:24] VITALS: BP 116/81
[2020-06-18 22:26] VITALS: BP 112/80
[2020-06-19 02:47] VITALS: BP 110/79
[2020-06-19 05:54] LABS: ANION GAP 10.5 mmol/L (8-16); CALCIUM 8.9 mg/dL (8.5-10.1); CARBON DIOXIDE 27.6 mmol/L (21.0-32.0); CREATININE - SERUM 1.1 mg/dL (0.6-1.3); MAGNESIUM - SERUM 1.8 mg/dL (1.8-2.4); POTASSIUM - SERUM 4.1 mmol/L (3.5-5.1)
[2020-06-19 06:15] VITALS: BP 114/75
[2020-06-19 07:24] LABS: BASOPHILS 0.1 % (0-2); EOSINOPHILS 1.6 % (0-7); HEMATOCRIT 50.7 % (36.0-48.0); HEMOGLOBIN 14.8 g/dL (12-16); IMMATURE GRANULOCYTES 0.1 % (0-5); MCH 27.8 pg (26.0-34.0); MCHC 29.2 g/dL (31.0-37.0); MCV 95.1 fL (80.0-100.0); MONOCYTES 17.9 % (2-11); NEUTROPHILS 68.3 % (40-80); PLATELET COUNT 155 10x3/uL (130-400); RBC 5.33 10x6/uL (4.00-5.40); RDW 18.5 % (11.5-14.5); WBC 7.6 10x3/uL (4.8-10.8)
[2020-06-19 09:27] VITALS: BP 118/88
[2020-06-19 13:00] VITALS: BP 98/65
[2020-06-19 20:00] VITALS: BP 102/75
--- NOTE | 2020-06-19 22:45 | NUR ---
IV INFILTRATED TO RT FA. PLACE 22 GA TO LT HAND. ATTEMPTS X1.
--- NOTE | 2020-06-20 00:33 | NUR ---
RECIEVED UP IN BED WITH CPAP IN PLACE. REPORTED SATS DROP FAST WITH OUT CPAP ON. IV TO RT FA WITH DOBUTAMINE INFUSING AT 5.3ML/HR. F/C INTACT WITH CLEAR YELLOW URINE DRAINING TO BEDSIDE DRAINAGE BAG. REMIANS BEDFAST. TELEMETRY IN PLACE. DENIEES ANY NEEDS AT THIS TIME.
[2020-06-20 04:00] VITALS: BP 97/67
[2020-06-20 06:14] LABS: CALCIUM 8.7 mg/dL (8.5-10.1); CARBON DIOXIDE 29.4 mmol/L (21.0-32.0); MAGNESIUM - SERUM 1.8 mg/dL (1.8-2.4); POTASSIUM - SERUM 4.4 mmol/L (3.5-5.1)
[2020-06-20 06:20] LABS: CREATININE - SERUM 1.4 mg/dL (0.6-1.3)
[2020-06-20 08:24] VITALS: BP 104/69
[2020-06-20 12:10] VITALS: BP 102/72
[2020-06-20 16:24] VITALS: BP 109/68
--- NOTE | 2020-06-20 20:04 | NUR ---
RECIEVED UP IN BED WITH BIPAP IN PLACE. ALERT AND ORIENTED X4. UP AD DARREN TO B/R. F/C INTACT WITH CLEAR YELLOW URINE DRAINING TO BEDSIDE DRAINAGE BAG. IV TO LT HAND WITH DOBUTAMINE INFUSING AT 5.3 ML PER HOUR. DENIES ANY NEEDS AT THIS TIME.
[2020-06-20 21:14] VITALS: BP 107/76
[2020-06-21 00:16] VITALS: BP 105/75
--- NOTE | 2020-06-21 01:25 | NUR ---
RESTING IN BED WITH EYES CLOSED. HOB ELEVATED AND BIPAP IN PLACE. NO S/S OF DISTRESS OBSERVED.
[2020-06-21 04:00] VITALS: BP 124/70
[2020-06-21 06:21] LABS: ANION GAP 15.5 mmol/L (8-16); CARBON DIOXIDE 24.5 mmol/L (21.0-32.0); CREATININE - SERUM 1.4 mg/dL (0.6-1.3); MAGNESIUM - SERUM 1.9 mg/dL (1.8-2.4)
--- NOTE | 2020-06-21 07:33 | NUR ---
PATIENTS CALL LIGHT ON, WHEN ENTERING ROOM, SHES ON BIPAP AT 100% AND STATES SHE CANT BREATH, RESP CALLED TO ROOM AND ASK ME TO ORDER ABG'S, WILL GET RESULTS AND NOTIFY DR HESS.
[2020-06-21 08:13] VITALS: BP 113/78
[2020-06-21 11:55] VITALS: BP 110/72
[2020-06-21 16:21] VITALS: BP 101/71
[2020-06-21 18:56] VITALS: BP 101/71; BP 136/93
--- NOTE | 2020-06-21 19:44 | NUR ---
RECIEVED UP IN B ED WITH BIPAP IN PLACE. ALERT AND ORIENTD. UP AD DARREN TO B/R.IV TO LT HAND WITH DOBUTAMINE INFUSING AT 5.3CC/HR. DENIES ANY NEEDS AT THIS TIME.
[2020-06-22 03:54] VITALS: BP 117/49
[2020-06-22 06:05] LABS: CALCIUM 9.4 mg/dL (8.5-10.1); CARBON DIOXIDE 22.7 mmol/L (21.0-32.0); MAGNESIUM - SERUM 2.3 mg/dL (1.8-2.4); PHOSPHOROUS 6.8 mg/dL (2.5-4.9)
[2020-06-22 06:30] LABS: ANION GAP 22.2 mmol/L (8-16)
[2020-06-22 06:38] LABS: BASOPHILS 0.1 % (0-2); EOSINOPHILS 0.1 % (0-7); HEMATOCRIT 53.1 % (36.0-48.0); HEMOGLOBIN 15.3 g/dL (12-16); IMMATURE GRANULOCYTES 0.5 % (0-5); LYMPHOCYTES 4.7 % (15-50); MCH 27.5 pg (26.0-34.0); MCHC 28.8 g/dL (31.0-37.0); MCV 95.3 fL (80.0-100.0); MONOCYTES 8.9 % (2-11); NEUTROPHILS 85.7 % (40-80); RBC 5.57 10x6/uL (4.00-5.40); RDW 18.9 % (11.5-14.5); WBC 17.5 10x3/uL (4.8-10.8)
[2020-06-22 06:40] LABS: PLATELET COUNT 219 10x3/uL (130-400)
[2020-06-22 07:09] LABS: CREATININE - SERUM 2.6 mg/dL (0.6-1.3); POTASSIUM - SERUM 5.9 mmol/L (3.5-5.1)
[2020-06-22 07:17] VITALS: BP 90/54
--- NOTE | 2020-06-22 07:20 | NUR ---
RECIEVE REPORT. ALERT AND ORIENTED X4. APPLE JUICE AND COOKIES GIVEN FOR GLUCOSE 47. DENIES ANY NEEDS. CONTINUE PLAN OF CARE AND SAFETY PRECAUTIONS.
[2020-06-22 07:44] VITALS: BP 97/66
[2020-06-22 11:40] VITALS: BP 93/55
--- NOTE | 2020-06-22 16:10 | NUR ---
LETHARGIC. AROUSES TO STIMULI. SITE IV RT HAND FOR SODIUM BICARB INFUSION. DOBUTAMINE INFUSING IN LT HAND ORDERED. BED BATH AND LINEN CHANGE COMPLETE. FAMILY AT BEDSIDE. DENIES ANY NEEDS AT THIS TIME. CONTINUE PLAN OF CARE AND SAFETY PRECAUTIONS.
--- NOTE | 2020-06-22 16:20 | MORECARE ---
CASE MANAGEMENT DISCHARGE SUMMARY PATIENT: BABATUNDE ALDANA UNIT: [id number] ADM DATE: 06/12/20 AGE: 60 : 56 SEX: F ROOM/BED: D.2104 AUTHOR: FEDEDOC PHYSICIAN: REFERRING PHYSICIAN: PEYTON MCNAIR MD DATE OF SERVICE: 06/22/20 Discharge Plan Patient Name: BABATUNDE ALDANA Facility: [facility]:[place] : 1960 Planned Disposition: Home Anticipated Discharge Date: Discharge Date: Expected LOS: Initial Reviewer: [email or web address] Initial Review Date: 06/16/2020 Generated: 06/22/20 5:19 pm Comments DCP- Discharge Planning Updated by [email or web address]: Yane Todd on 06/22/20 3:[address] CM called daughter, Suzanne, and she states her mom's sister is here with her. I looked in the room, and she is not in the room and patient is asleep. I spoke with Suzanne in the room and she states "I will be at the hospital to meet with [facility] at 10:30." Ana is here with [facility] and she called Rc and he will be here tomorrow morning at 10:30. [facility] for [facility] placed on chart. DCP- Discharge Planning Updated by [id number]: Yane Todd on 06/16/20 1:[address] Patient Name: BABATUNDE ALDANA Admission Status: ER Accout number: [id number] Admission Date: 06-12-2020 : 1960 Admission Diagnosis: Attending: PEYTON MCNAIR Current LOS: 4 Anticipated DC Date: Planned Disposition: Home Primary Insurance: [facility] MEDICARE SOLUTIONS Discharge Planning Comments: CM met with patient to discuss discharge planning/needs, she is alone in the room. CM educated patient on the CM role and verbal consent given by patient to complete assessment. Patient lives at home with her spouse. At discharge patient plans to return and feels this is a safe discharge. States her daughter, Suzanne, is going to come stay with her on discharge. States her works during the day, so daughter will be there while her is working. CM discussed availability of home health, rehab services, and medical equipment. Patient denied known discharge needs at this time. She states that she has been wearing her Bipap at and taking her prescriptions as prescribed. CM will continue to follow and will assist as needed with dc plans/needs. Automatic Silk Screen Printer: Yane Todd DCPIA - Discharge Planning Initial Assessment Updated by [email or web address]: Yane Todd on 06/16/20 2:05 pm * Is the patient Alert and Oriented? Yes * How many steps to enter\\exit or inside your home? 10 w/rails * PCP Dr. Purvis * Pharmacy [facility] * Preadmission Environment Home with Family * ADLs Partial Dependent * Partial ADLs (Assistance needed) Ambulation * Equipment BIPAP Cane Nebulizer Other Oxygen * Other Equipment Portable oxygen * List name and contact numbers for known caregivers / representatives who currently or will assist patient after discharge: Sajan Aldana - spouse - [phone] or [phone] Suzanne Tamez - DTR - [phone] Lc Aldana - grand son - [phone] * Verbal permission to speak to the caregivers and representatives has been obtained from the patient. Yes * Community resources currently utilized None * Additional services required to return to the preadmission environment? No * Can the patient safely return to the preadmission environment? Yes * Has this patient been hospitalized within the prior 30 days at any hospital? Yes Coverage Notice Reviewer: [id number] - Yane Todd Notice Issued Date-Time: 06/22/2020 16:18 Notice Type: Patient Choice Letter Notice Delivered To: Family Member Relationship to Patient: Daughter Dispute Resolution Analyst Name: Suzanne Tamez Delivery Method: HAND - Hand Delivered Slime Days: Prior Verbal Notification: Recipient Understood Notice: Yes Recipient Signature: Yes Med Rec Note Co-signed by Attending: Coverage Notice Comment: NICHOLE for [facility] Last DP export: 06/16/20 1:16 p Patient Name: BABATUNDE ALDANA Page [id number] at 1620 All edits/amendments must be made on the electronic document DICTATION DATE: 06/22/201618 TREE TAPPING LABORER: HEDY 06/22/20 1619 RPT#: [id number] DC DATE: STATUS: ADM IN [facility] [address] [place] [place] [address] END OF REPORT
[2020-06-22 17:11] LABS: ANION GAP 19.8 mmol/L (8-16); CALCIUM 9.1 mg/dL (8.5-10.1); CARBON DIOXIDE 21.3 mmol/L (21.0-32.0)
[2020-06-22 17:26] LABS: CREATININE - SERUM 3.5 mg/dL (0.6-1.3)
[2020-06-22 17:28] LABS: POTASSIUM - SERUM 6.1 mmol/L (3.5-5.1)
--- NOTE | 2020-06-22 17:34 | NUR ---
CRITICAL K+ CALLED BY LAB. KASANDRA PERRY.
--- NOTE | 2020-06-22 21:00 | NUR ---
2014-DNI ESTABLISHED BY NEXT OF KIN AND PROVIDER. [place] AT BEDSIDE. 2129- PT'S HEART RATE DROPPED INTO 20'S. ELIA BLUE CALLED COMPRESSIONS STARTED. 2133- FAMILY/NEXT OF KIN REQUESTED COMPRESSIONS BE STOPPED. NO PULSES PALPATED. 2138- DR. CAMILO PRONOUNCED. CINDY CALLED. PT'S BELONGINGS ACCOUNTED FOR WITH NEXT OF KIN. 2149- HOME CALLED.
[2020-06-22 22:45] VITALS: BP 121/65
--- NOTE | 2020-06-23 00:43 | NUR ---
RELEASED TO HOME
--- NOTE | 2020-06-23 10:43 | MORECARE ---
CASE MANAGEMENT DISCHARGE SUMMARY PATIENT: BABATUNDE ALDANA UNIT: [id number] ADM DATE: 06/12/20 AGE: 60 : 56 SEX: F ROOM/BED: D.2104 AUTHOR: PIERRE MISTRY PHYSICIAN: REFERRING PHYSICIAN: PEYTON MCNAIR MD DATE OF SERVICE: 06/23/20 Discharge Plan Patient Name: BABATUNDE ALDANA Facility: [facility]:[place] : 1960 Planned Disposition: Home Anticipated Discharge Date: 06/22/20 Discharge Date: 06/22/2020 Expected LOS: 10 Initial Reviewer: [email or web address] Initial Review Date: 06/16/2020 Generated: 06/23/20 11:42 am Comments DCP- Discharge Planning Updated by [email or web address]: Yane Todd on 06/22/20 3:[address] CM called daughter, Suzanne, and she states her mom's sister is here with her. I looked in the room, and she is not in the room and patient is asleep. I spoke with Suzanne in the room and she states "I will be at the hospital to meet with [facility] at 10:30." Ana is here with [facility] and she called Rc and he will be here tomorrow morning at 10:30. [facility] for [facility] placed on chart. DCP- Discharge Planning Updated by [id number]: Yane Todd on 06/16/20 1:[address] Patient Name: BABATUNDE ALDANA Admission Status: ER Accout number: [id number] Admission Date: 06-12-2020 : 1960 Admission Diagnosis: Attending: PEYTON MCNAIR Current LOS: 4 Anticipated DC Date: Planned Disposition: Home Primary Insurance: [facility] MEDICARE SOLUTIONS Discharge Planning Comments: CM met with patient to discuss discharge planning/needs, she is alone in the room. CM educated patient on the CM role and verbal consent given by patient to complete assessment. Patient lives at home with her spouse. At discharge patient plans to return and feels this is a safe discharge. States her daughter, Suzanne, is going to come stay with her on discharge. States her works during the day, so daughter will be there while her is working. CM discussed availability of home health, rehab services, and medical equipment. Patient denied known discharge needs at this time. She states that she has been wearing her Bipap at and taking her prescriptions as prescribed. CM will continue to follow and will assist as needed with dc plans/needs. Cosmetic Sales Advisor: Yane Todd DCPIA - Discharge Planning Initial Assessment Updated by [email or web address]: Yane Todd on 06/16/20 2:05 pm * Is the patient Alert and Oriented? Yes * How many steps to enter\\exit or inside your home? 10 w/rails * PCP Dr. Purvis * Pharmacy [facility] * Preadmission Environment Home with Family * ADLs Partial Dependent * Partial ADLs (Assistance needed) Ambulation * Equipment BIPAP Cane Nebulizer Other Oxygen * Other Equipment Portable oxygen * List name and contact numbers for known caregivers / representatives who currently or will assist patient after discharge: Sajan Aldana - spouse - [phone] or [phone] Suzanne [place] - DTR - [phone] Lc Aldana - grand son - [phone] * Verbal permission to speak to the caregivers and representatives has been obtained from the patient. Yes * Community resources currently utilized None * Additional services required to return to the preadmission environment? No * Can the patient safely return to the preadmission environment? Yes * Has this patient been hospitalized within the prior 30 days at any hospital? Yes Coverage Notice Reviewer: [id number] - Yane Todd Notice Issued Date-Time: 06/22/2020 16:18 Notice Type: Patient Choice Letter Notice Delivered To: Family Member Relationship to Patient: Daughter Behavioral Scientist Name: Suzanne Tamez Delivery Method: HAND - Hand Delivered Slime Days: Prior Verbal Notification: Recipient Understood Notice: Yes Recipient Signature: Yes Med Rec Note Co-signed by Attending: Coverage Notice Comment: NICHOLE for [facility] Last DP export: 06/22/20 3:20 p Patient Name: BABATUNDE ALDANA Page [id number] at 1043 All edits/amendments must be made on the electronic document DICTATION DATE: 06/23/20 1042 BAR TENDER: HEDY 06/23/20 1042 RPT#: [id number] DC DATE:06/22/20 STATUS: DIS IN [facility] [address] [facility] [address] END OF REPORT
== END 2020-06-22 23:55 | DRG 291 ==
LOC: D.ER 17:31 → D.M2 18:57
PROVIDERS: Family Medicine; Internal Medicine Nephrology; ADMIT Emergency Medicine; ATTEND Emergency Medicine
PROC: 5A09557 Assistance with Respiratory Ventilation, Greater than 96 Consecutive Hours, Continuous Positive Airway Pressure (ICD-10-PCS; principal; 2020-06-14)
PROC: 5A12012 Performance of Cardiac Output, Single, Manual (ICD-10-PCS; 2020-06-22)
DX: I13.0 Hypertensive heart and chronic kidney disease with heart failure and stage 1 through stage 4 chronic kidney disease, or unspecified chronic kidney disease (principal); J96.22 Acute and chronic respiratory failure with hypercapnia; J96.21 Acute and chronic respiratory failure with hypoxia; J18.9 Pneumonia, unspecified organism; I50.43 Acute on chronic combined systolic (congestive) and diastolic (congestive) heart failure; N17.0 Acute kidney failure with tubular necrosis; J44.1 Chronic obstructive pulmonary disease with (acute) exacerbation; J44.0 Chronic obstructive pulmonary disease with (acute) lower respiratory infection; E87.1 Hypo-osmolality and hyponatremia; I42.9 Cardiomyopathy, unspecified; N18.9 Chronic kidney disease, unspecified; K64.4 Residual hemorrhoidal skin tags; G89.29 Other chronic pain; M54.9 Dorsalgia, unspecified; E11.649 Type 2 diabetes mellitus with hypoglycemia without coma; E11.22 Type 2 diabetes mellitus with diabetic chronic kidney disease; K57.90 Diverticulosis of intestine, part unspecified, without perforation or abscess without bleeding; I08.1 Rheumatic disorders of both mitral and tricuspid valves; E87.5 Hyperkalemia; I48.0 Paroxysmal atrial fibrillation